=== PATIENT | male | born 1935 | race Caucasian/White ===

== ENCOUNTER 2018-03-08 05:44 | Inpatient (IN) | payer OTHER, MEDICARE ==
[2018-03-08] MEDS ORDERED: NA CHLORIDE 0.9% 500 ML ONE ×2 (06:30→11:54)
[2018-03-08] MEDS ORDERED: MORPHINE 4 MG/ML SYR ONE ×2 (06:30→10:43)
[2018-03-08] MEDS ORDERED: ONDANSETRON 4 MG/2 ML VIAL ONE (06:30)
[2018-03-08 07:20] LABS: Absolute Lymphocytes (CBC) 1.4 K/uL (0.7-4.9); Absolute Monocytes 0.9 K/uL (0.1-1.3); Absolute Neutrophil 8.1 K/uL (1.8-8.0); Basophils % 0.3 % (0-1.3); Eosinophils % 0.7 % (0-4.4); Hematocrit 40.8 % (39.6-49.0); Lymphocytes % 13.3 % (15.3-44.8); MCH 30.7 pg (27.0-35.0); MCV 94.2 fL (80-100); MPV 10.5 fL (7.6-11.3); Monocytes % 8.8 % (3.3-12.3); RBC Red Blood Cell Count 4.33 M/uL (4.33-5.43)
[2018-03-08] MEDS ORDERED: LIDOCAINE VISCOUS 2% SOLN 15 ML UDC ONE (07:24)
[2018-03-08 07:30] LABS: Albumin 3.7 g/dL (3.4-5.0); Bilirubin Direct 0.1 mg/dL (0-0.2); Bilirubin Total 0.6 mg/dL (0.2-1.0); Potassium 4.8 mmol/L (3.5-5.1); Protein, Total 7.7 g/dL (6.4-8.2)
--- NOTE | 2018-03-08 09:17 | RAD REPORT ---
EXAM DESCRIPTION: CT - Abdomen Pelvis Wo Contrast - 03/08/2018 8:56 am CLINICAL HISTORY: Abdominal pain, constipation COMPARISON: None. TECHNIQUE: Axial [address] imaging of the abdomen and pelvis was performed without IV contrast. No IV contrast was given because of allergy, abnormal renal function, patient refusal or physician re quest. Oral contrast was given. All CT scans are performed using dose optimization technique as appropriate and may include automated exposure control or mA/KV adjustment according to patient size. FINDINGS: No acute infiltrate in the lung bases. No pneumothorax or pleural effusion. There is a sma ll 8 mm nodular focus that appears to be pleural based on the coronal reconstruction. This is probabl y pleural or subpleural scarring. Long-term significance is doubtful. No prior imaging is available. A 6-12 month follow-up examination of the chest could be performed to monitor for stability. The liver, spleen and pancreas show no suspicious findings on non-contrast imaging. Gallbladder and b iliary tree are also without suspicious finding. No hydronephrosis of either kidney. Extrarenal pelves are present. No obstructing or nonobstructing c alculi. Patient has a nonspecific mild to moderate perinephric stranding pattern not uncommon in mark ents this age. Patient has multiple bilateral low-attenuation masses. These are all believed to be cy sts. No one mass shows more suspicious characteristics. No significant adrenal finding. Isodense isiah al masses and pyelonephritis cannot be excluded in the absence of IV contrast. Urinary bladder is ful ly contracted around a Pollack catheter limiting assessment. No bladder calculi seen. No gastric dilatation or gastric wall thickening. No acute small bowel finding. Patient has prominent sigmoid diverticulosis without diverticulitis. There is large stool volume filling but not dilating the cecum and ascending colon. Colon is otherwise clear of any stool volume. No active colon process seen. No free air, free fluid or inflammatory stranding. No mass or bulky lymphadenopathy. Patient gao s a small fat only umbilical hernia. Small right-side and moderate left-side fat filled inguinal junaid ia is present. Prostate gland and seminal vesicles normal range. Disc and bony degenerative changes are present. No acute or pathologic bone process seen. IMPRESSION: No obstruction, free air or surgically emergent finding. Patient has a large stool volume filling the right-side of the colon. Transverse colon to rectum are clear of any measurable stool volume. There is sigmoid diverticulosis without diverticulitis. No hydronephrosis or obstructing calculus. Numerous bilateral renal cysts are present with a nonspeci fic perinephric stranding pattern. Isodense masses and pyelonephritis are not excluded. Small nodular focus at the right lung base warranting CT re-evaluation in 6-12 months. Full assessment is limited is the absence of IV contrast.
--- NOTE | 2018-03-08 10:02 | EDPHYS ---
Physician Documentation [facility] Name: Jax Bojorquez Age: 82 yrs Sex: Male : 1935 Arrival Date: 03/08/2018 Time: 05:44 Bed 19 Private MD: ED Physician Del Douglas HPI: 03/08 07:00 This 82 yrs old Male presents to ER via Ambulatory with complaints of pm1 Abdominal Pain. 07:00 The patient presents with abdominal pain that is diffuse. Onset: The symptoms/episode pm1 began/occurred 4 day(s) ago. The symptoms do not radiate. Associated signs and symptoms: Pertinent positives: constipation, urinary retention and dribbling, Pertinent negatives: chest pain, fever, shortness of breath. The symptoms are described as crampy, Feels like he needs to have a bowel movement. Modifying factors: The symptoms are alleviated by nothing, the symptoms are aggravated by nothing. Severity of pain: in the emergency department the pain is actually worse. The patient has not experienced similar symptoms in the past. Patient with urinary difficulty and constipation for 4 days. Urinating a little amount multiple times throughout the day. No burning with urination. He feels diffuse abdominal pain with urge to defecate. No nausea or vomiting. No fevers. Called his manager configuration on Friday afternoon at 1600 prior to office closing and was called in a prescription of Cipro for possible UTI. Patient was advised to report to ER on that day but refused. Historical: - Allergies: 06:02 No Known Allergies; jd3 - Home Meds: 08:55 allopurinol 300 mg Oral tab 1 tab once daily [Active]; valsartan 40 mg oral tab once em daily [Active]; pravastatin 40 mg oral tab 1 tab once daily [Active]; Cipro 500 mg Oral tab 1 tab every 12 hours [Active]; - PMHx: 06:02 Hypertension; High Cholesterol; jd3 - PSHx: 06:02 None; jd3 - Immunization history:: Adult Immunizations up to date. - Social history:: Smoking status: Patient/guardian denies using tobacco. - Ebola Screening: : Patient negative for fever greater than or equal to 101.5 degrees Fahrenheit, and additional compatible Ebola Virus Disease symptoms. ROS: 07:00 Constitutional: Negative for fever, chills, and weight loss, Eyes: Negative for injury, pm1 pain, redness, and discharge, ENT: Negative for injury, pain, and discharge, Neck: Negative for injury, pain, and swelling, Cardiovascular: Negative for chest pain, palpitations, and edema, Respiratory: Negative for shortness of breath, cough, wheezing, and pleuritic chest pain. 07:00 Back: Negative for injury and pain. 07:00 MS/Extremity: Negative for injury and deformity, Skin: Negative for injury, rash, and discoloration, Neuro: Negative for headache, weakness, numbness, tingling, and seizure. 07:00 Abdomen/GI: Positive for abdominal pain, constipation, Negative for nausea, vomiting, diarrhea. 07:00 : Positive for urinary frequency, small amounts, difficulty urinating, Negative for flank pain, burning with urination. Exam: 07:00 Constitutional: This is a well developed, well nourished patient who is awake, alert, pm1 and in no acute distress. Head/Face: Normocephalic, atraumatic. Neck: Trachea midline, no thyromegaly or masses palpated, and no cervical lymphadenopathy. Supple, full range of motion without nuchal rigidity, or vertebral point tenderness. No Meningismus. Chest/axilla: Normal chest wall appearance and motion. Nontender with no deformity. No lesions are appreciated. Cardiovascular: Regular rate and rhythm with a normal S1 and S2. No gallops, murmurs, or rubs. Normal PMI, no JVD. No pulse deficits. Respiratory: Lungs have equal breath sounds bilaterally, clear to auscultation and percussion. No rales, rhonchi or wheezes noted. No increased work of breathing, no retractions or nasal flaring. 07:00 Back: No spinal tenderness. No costovertebral tenderness. Full range of motion. Skin: Warm, dry with normal turgor. Normal color with no rashes, no lesions, and no evidence of cellulitis. MS/ Extremity: Pulses equal, no cyanosis. Neurovascular intact. Full, normal range of motion. 07:00 Abdomen/GI: Inspection: obese Bowel sounds: normal, Palpation: soft, mild abdominal tenderness, in the suprapubic area, mass, is not appreciated, rebound tenderness, is not appreciated. 07:00 Neuro: Orientation: is normal, Motor: moves all fours, Gait: is steady, at a normal pace, without difficulty. Vital Signs: 05:50 BP 158 / 88; Pulse 81; Resp 18; Temp 97.8(TE); Pulse Ox 97% on R/A; Weight 84.37 kg ea (R); Height 5 ft. 9 in. (175.26 cm) (R); Pain 10/10; 07:10 BP 147 / 87; Pulse 67; Resp 18; Pulse Ox 99% on R/A; Pain 5/10; em 08:11 BP 164 / 91; Pulse 70; Resp 18; Pulse Ox 99% on R/A; em 09:00 BP 159 / 88; Pulse 65; Resp 18; Pulse Ox 99% on R/A; em 10:01 BP 157 / 78; Pulse 79; Resp 18; Pulse Ox 96% on R/A; em 11:27 BP 150 / 84; Pulse 66; Resp 16; Pulse Ox 97% on R/A; em 12:45 BP 165 / 86; Pulse 70; Resp 20; Temp 97.8(O); Pulse Ox 98% on R/A; em 13:50 BP 160 / 79; Pulse 67; Resp 16; Pulse Ox 97% on R/A; em 15:00 BP 140 / 73; Pulse 59; Resp 14; Pulse Ox 99% on R/A; Pain 0/10; em 16:10 BP 159 / 61; Pulse 67; Resp 18; Temp 98.1; Pulse Ox 97% on R/A; Pain 0/10; em 05:50 Body Mass Index 27.47 (84.37 kg, 175.26 cm) ea MDM: 06:01 Patient medically screened. pm1 10:05 Physician consultation: Jayla Giron MD was contacted at 10:00, regarding consult, pm1 patient's condition, and will see patient tomorrow, IV fluids and lezama catheter. 10:20 Physician consultation: Natali Fofana MD was contacted at 10:20, regarding pm1 admission, patient's condition, would like consultation with Urology. 10:39 Physician consultation: Kym Buenrostro MD was contacted at 10:39, regarding consult, pm1 Out of town for 1 week. 11:15 Physician consultation: Natali Fofana MD was contacted at 11:15, regarding Told him pm1 that urology is unavailable. Dr. Buenrostro is out of town for [address] Fofana requests transfer of the patient due to lack of speciality. 12:35 Data reviewed: vital signs. Data interpreted: Pulse oximetry: on room air is 99 %. pm1 Interpretation: normal. 13:30 Physician consultation: Rickie Cavanaugh MD regarding regarding transfer, to [address] patient's condition, Recommends consultation with hospitalist here to discuss admission at [facility]. No acute reason for transfer to [facility] since patient has Lezama placement. Not denying transfer but recommends discussion with hospitalist if transfer is necessary. 14:10 Physician consultation: Stephanie Nicholas MD She discussed the case with Dr. Cavanaugh and pm1 they would like repeat BMP prior to determination of transfer or admission. 15:40 Physician consultation: Stephanie Nicholas MD Consulted with Dr. Giron and will keep the pm1 patient here for admission. If patient requires urology will transfer the patient to [facility]. 03/08 06:09 Order name: Amylase, Serum pm1 03/08 06:09 Order name: Basic Metabolic Panel 1 03/08 06:09 Order name: CBC with Diff pm1 03/08 06:09 Order name: Creatinine for Radiology pm1 03/08 06:09 Order name: Hepatic Function 1 03/08 06:09 Order name: Lipase pm1 03/08 06:09 Order name: Urine Microscopic Only; Complete Time: 12:22 pm1 03/08 06:43 Order name: Basic Metabolic Panel; Complete Time: 07:32 EDMS 03/08 06:43 Order name: Liver (Hepatic) Function; Complete Time: 07:32 EDMS 03/08 06:43 Order name: Amylase Level; Complete Time: 07:32 EDMS 03/08 06:43 Order name: Lipase; Complete Time: 07:32 EDMS 03/08 06:44 Order name: Creatinine (Radiology Only); Complete Time: 07:07 EDMS 03/08 06:44 Order name: CBC with Automated Diff; Complete Time: 08:05 EDMS 03/08 07:21 Order name: Urine Dipstick--Ancillary (enter results) 03/08 06:09 Order name: IV Saline Lock; Complete Time: 06:36 pm1 03/08 06:09 Order name: Labs collected and sent; Complete Time: 06:36 pm1 03/08 07:09 Order name: Abdomen ; Complete Time: 09:25 EDMS 03/08 07:21 Order name: Urine Dipstick-Ancillary; Complete Time: 15:46 EDMS 03/08 10:41 Order name: CONS Physician Consult EDMS 03/08 14:12 Order name: BMP pm1 03/08 06:09 Order name: Urine Dipstick-Ancillary (obtain specimen); Complete Time: 08:12 pm1 03/08 06:09 Order name: Bladder Scanner; Complete Time: 08:12 pm1 03/08 06:39 Order name: Lezama; Complete Time: 08:12 pm1 Administered Medications: 06:36 Drug: NS 0.9% 500 ml Route: IV; Rate: bolus; Site: left antecubital; jd3 06:59 Follow up: Response: No adverse reaction; IV Status: Completed infusion; IV Intake: jd3 500ml 06:36 Drug: Zofran 4 mg Route: IVP; Site: left antecubital; jd3 06:59 Follow up: Response: No adverse reaction jd3 06:36 Drug: morphine 2 mg Route: IVP; Site: left antecubital; jd3 06:59 Follow up: Response: No adverse reaction jd3 10:48 Drug: morphine 2 mg Route: IVP; Site: left antecubital; em 12:09 Follow up: Response: No adverse reaction; Pain is decreased em 11:59 Drug: NS 0.9% 500 ml Route: IV; Rate: bolus; Site: left antecubital; em 16:24 Follow up: IV Status: Completed infusion; IV Intake: 500ml em 11:59 Drug: NS 0.9% 1000 ml Route: IV; Rate: 100 ml/hr; Site: left antecubital; em 16:32 Follow up: IV Status: Infusion continued upon admission; IV Intake: 300ml em 12:28 Drug: morphine 2 mg Route: IVP; Site: left antecubital; em 12:56 Follow up: Response: No adverse reaction em 12:57 Drug: Dulcolax Suppository 10 mg Route: OH; em 16:25 Follow up: Response: No adverse reaction; Pain is decreased em 16:24 Drug: Fleet Bisacodyl Enema (10 mg/30mL) 10 mg Route: OH; em 16:25 Follow up: Response: Medication administered at discharge. em Disposition: 03/09 13:28 Co-signature as Attending Physician, Del Douglas MD Available for consultation at ps1 all times. . Disposition: 03/08/18 14:30 Hospitalization ordered by Stephanie Nicholas for Inpatient Admission. Preliminary diagnosis are Acute kidney injury, Constipation, Retention of urine, Unspecified abdominal pain. - Bed requested for Telemetry/MedSurg (Inpatient). - Status is Inpatient Admission. em - Condition is Stable. - Problem is new. - Symptoms have improved. UTI on Admission? No Signatures: Dispatcher [employer] EDNC Justina Junior Edgar, HOTEL OR MOTEL CLEANING SUPERVISOR HOTEL OR MOTEL CLEANING SUPERVISOR em Ashu Arndt, DONNIE PROTECTIVE SIGNAL INSTALLER HELPER pm1 Armando Morton, RN RN Del Renteria MD MD ps1 Corrections: (The following items were deleted from the chart) 03/08 07:09 07:00 Abdomen Pelvis W Con+CT.RAD.BRZ ordered. [facility] EDMS 08:55 06:02 Home Meds: HTN medications; jd3 em 10:02 10:01 Hospitalization Ordered by Josiah Bolanos DO for Inpatient Admission. Preliminary pm1 diagnosis is Constipation. Bed requested for Telemetry/MedSurg (Inpatient). Status is Inpatient Admission. Condition is Stable. Problem is new. Symptoms have improved. UTI on Admission? No. pm1 10:02 10:02 03/08/2018 10:01 Hospitalization Ordered by Josiah Bolanos DO for Inpatient pm1 Admission. Preliminary diagnosis is Constipation; Retention of urine; Acute kidney failure. Bed requested for Telemetry/MedSurg (Inpatient). Status is Inpatient Admission. Condition is Stable. Problem is new. Symptoms have improved. UTI on Admission? No. pm1 10:33 10:02 03/08/2018 10:01 Hospitalization Ordered by Josiah Bolanos DO for Inpatient pm1 Admission. Preliminary diagnosis is Acute kidney failureConstipation; Retention of urine. Bed requested for Telemetry/MedSurg (Inpatient). Status is Inpatient Admission. Condition is Stable. Problem is new. Symptoms have improved. UTI on Admission? No. pm1 11:23 10:33 03/08/2018 10:01 Hospitalization Ordered by Natali Fofana MD for Inpatient pm1 Admission. Preliminary diagnosis is Acute kidney failureConstipation; Retention of urine. Bed requested for Telemetry/MedSurg (Inpatient). Status is Inpatient Admission. Condition is Stable. Problem is new. Symptoms have improved. UTI on Admission? No. pm1 11:25 11:24 03/08/2018 11:24 Transfer ordered to [facility]. Diagnosis is pm1 Acute kidney failure; Constipation; Retention of urine. Reason for transfer: Specialty. Accepting physician is [facility]. Condition is Stable. Problem is new. Symptoms have improved. pm1 14:29 11:25 03/08/2018 11:24 Transfer ordered to [facility]. Diagnosis is pm1 Acute kidney failure; Constipation; Retention of urine; Unspecified abdominal pain. Reason for transfer: Specialty. Accepting physician is [facility]. Condition is Stable. Problem is new. Symptoms have improved. pm1 15:33 14:30 Hospitalization Ordered by Stephanie Nicholas MD for Inpatient Admission. Preliminary bd diagnosis is Acute kidney injury; Constipation; Retention of urine; Unspecified abdominal pain. Bed requested for Telemetry/MedSurg (Inpatient). Status is Inpatient Admission. Condition is Stable. Problem is new. Symptoms have improved. UTI on Admission? No. pm1 16:42 15:33 03/08/2018 14:30 Hospitalization Ordered by Stephanie Nicholas MD for Inpatient em Admission. Preliminary diagnosis is Acute kidney injury; Constipation; Retention of urine; Unspecified abdominal pain. Bed requested for Telemetry/MedSurg (Inpatient). Status is Inpatient Admission. Condition is Stable. Problem is new. Symptoms have improved. UTI on Admission? No. bd
--- NOTE | 2018-03-08 10:02 | ER ---
Nurse's Notes [facility] Name: Jax Bojorquez Age: 82 yrs Sex: Male : 1935 Arrival Date: 03/08/2018 Time: 05:44 Bed 19 Private MD: Diagnosis: Acute kidney injury;Constipation;Retention of urine;Unspecified abdominal pain Presentation: 03/08 05:58 Transition of care: patient was not received from another setting of care. Risk ea Assessment: Do you want to hurt yourself or someone else? Patient reports no desire to harm self or others. Initial Sepsis Screen: Does the patient meet any 2 criteria? No. Patient's initial sepsis screen is negative. Does the patient have a suspected source of infection? Yes: Dysuria/Frequency/Urgency/UTI. 05:58 Method Of Arrival: Ambulatory ea 05:58 Presenting complaint: Patient states: "I am having lower abdominal pain. I feel like I jd3 am plugged up. If I could just use the restroom, I feel like I would fell better.". Transition of care: patient was not received from another setting of care. Onset of symptoms was March 03, 2018. Risk Assessment: Do you want to hurt yourself or someone else? Patient reports no desire to harm self or others. Initial Sepsis Screen: Does the patient meet any 2 criteria? No. Patient's initial sepsis screen is negative. Does the patient have a suspected source of infection? No. Patient's initial sepsis screen is negative. Care prior to arrival: None. 05:58 Method Of Arrival: Ambulatory jd3 05:58 Acuity: JASMEET 3 jd3 Historical: - Allergies: 06:02 No Known Allergies; jd3 - Home Meds: 08:55 allopurinol 300 mg Oral tab 1 tab once daily [Active]; valsartan 40 mg oral tab once em daily [Active]; pravastatin 40 mg oral tab 1 tab once daily [Active]; Cipro 500 mg Oral tab 1 tab every 12 hours [Active]; - PMHx: 06:02 Hypertension; High Cholesterol; jd3 - PSHx: 06:02 None; jd3 - Immunization history:: Adult Immunizations up to date. - Social history:: Smoking status: Patient/guardian denies using tobacco. - Ebola Screening: : Patient negative for fever greater than or equal to 101.5 degrees Fahrenheit, and additional compatible Ebola Virus Disease symptoms. Screenin:57 Abuse screen: Denies threats or abuse. Nutritional screening: No deficits noted. ea Tuberculosis screening: No symptoms or risk factors identified. Fall Risk None identified. Assessment: 06:02 General: Appears in no apparent distress. uncomfortable, Behavior is calm, cooperative, jd3 appropriate for age. Pain: Complains of pain in right lower quadrant and left lower quadrant Pain radiates to low back area Pain currently is 10 out of 10 on a pain scale. Quality of pain is described as aching, Is continuous. Neuro: Level of Consciousness is awake, alert, obeys commands, Oriented to person, place, time, situation, Appropriate for age. Cardiovascular: Heart tones S1 S2 present Capillary refill < 3 seconds Patient's skin is warm and dry. Respiratory: Airway is patent Respiratory effort is even, unlabored, Respiratory pattern is regular, symmetrical, Breath sounds are clear bilaterally. GI: Abdomen is round Bowel sounds present X 4 quads. Abd is soft and non tender X 4 quads. Reports constipation, Last bowl movement 3 days ago Patient currently denies nausea, vomiting. : Reports urinary retention. EENT: No signs and/or symptoms were reported regarding the EENT system. Derm: Skin is intact, Skin is dry, Skin is normal, Skin temperature is warm. Musculoskeletal: Circulation, motion, and sensation intact. Range of motion: intact in all extremities. 07:10 General: Appears in no apparent distress. comfortable, Behavior is calm, cooperative. em Pain: Complains of pain in left lower quadrant and right lower quadrant Pain radiates to back Pain currently is 5 out of 10 on a pain scale. Neuro: Level of Consciousness is awake, alert, Oriented to person, place, time, situation. Cardiovascular: Capillary refill < 3 seconds Patient's skin is warm and dry. Respiratory: Airway is patent Respiratory effort is even, unlabored, Respiratory pattern is regular, symmetrical. GI: Abdomen is round non-distended, Bowel sounds present X 4 quads. Abd is soft X 4 quads Abdomen is tender to palpation in right lower quadrant and left lower quadrant Reports constipation, Patient currently denies nausea, vomiting. : Reports burning with urination, minimal voiding. EENT: No signs and/or symptoms were reported regarding the EENT system. Derm: Skin is intact, Skin is pink, warm \\T\\ dry. Musculoskeletal: Range of motion: intact in all extremities. 07:20 Reassessment: Patient appears in no apparent distress at this time. I agree with above iw assessment by Kiel Taylor LVN. 08:11 Reassessment: Patient appears in no apparent distress at this time. Patient and/or em family updated on plan of care and expected duration. Pain level reassessed. Patient is alert, oriented x 3, equal unlabored respirations, skin warm/dry/pink. feeling better after Pollack Patient states feeling better. 08:48 Reassessment: pt wheeled to CT via stretcher, reports feeling better, denies pain. em 09:50 Reassessment: Patient appears in no apparent distress at this time. Patient and/or em family updated on plan of care and expected duration. Pain level reassessed. Patient is alert, oriented x 3, equal unlabored respirations, skin warm/dry/pink. family at bedside. 10:30 Reassessment: attempted to have a BM, unsuccessful, DONNIE Wakefield notified, pt request em pain medication, rates pain 06/24. 11:30 Reassessment: Patient appears in no apparent distress at this time. Patient and/or em family updated on plan of care and expected duration. Pain level reassessed. Patient is alert, oriented x 3, equal unlabored respirations, skin warm/dry/pink. request a laxative, DONNIE Wakefield notified. 12:30 Reassessment: Patient appears in no apparent distress at this time. Patient and/or em family updated on plan of care and expected duration. Pain level reassessed. Patient is alert, oriented x 3, equal unlabored respirations, skin warm/dry/pink. 13:27 Reassessment: Patient appears in no apparent distress at this time. resting comfortably em with eyes closed, respiration even, unlabored, skin pink warm and dry, family will return later. 14:30 Reassessment: Patient appears in no apparent distress at this time. Patient and/or em family updated on plan of care and expected duration. Pain level reassessed. Patient is alert, oriented x 3, equal unlabored respirations, skin warm/dry/pink. 15:32 Reassessment: Patient appears in no apparent distress at this time. Patient and/or em family updated on plan of care and expected duration. Pain level reassessed. Patient is alert, oriented x 3, equal unlabored respirations, skin warm/dry/pink. Patient denies pain at this time. 16:30 Reassessment: Patient appears in no apparent distress at this time. Patient and/or em family updated on plan of care and expected duration. Pain level reassessed. Patient is alert, oriented x 3, equal unlabored respirations, skin warm/dry/pink. Vital Signs: 05:50 BP 158 / 88; Pulse 81; Resp 18; Temp 97.8(TE); Pulse Ox 97% on R/A; Weight 84.37 kg ea (R); Height 5 ft. 9 in. (175.26 cm) (R); Pain 10/10; 07:10 BP 147 / 87; Pulse 67; Resp 18; Pulse Ox 99% on R/A; Pain 5/10; em 08:11 BP 164 / 91; Pulse 70; Resp 18; Pulse Ox 99% on R/A; em 09:00 BP 159 / 88; Pulse 65; Resp 18; Pulse Ox 99% on R/A; em 10:01 BP 157 / 78; Pulse 79; Resp 18; Pulse Ox 96% on R/A; em 11:27 BP 150 / 84; Pulse 66; Resp 16; Pulse Ox 97% on R/A; em 12:45 BP 165 / 86; Pulse 70; Resp 20; Temp 97.8(O); Pulse Ox 98% on R/A; em 13:50 BP 160 / 79; Pulse 67; Resp 16; Pulse Ox 97% on R/A; em 15:00 BP 140 / 73; Pulse 59; Resp 14; Pulse Ox 99% on R/A; Pain 0/10; em 16:10 BP 159 / 61; Pulse 67; Resp 18; Temp 98.1; Pulse Ox 97% on R/A; Pain 0/10; em 05:50 Body Mass Index 27.47 (84.37 kg, 175.26 cm) ED Course: 05:44 Patient arrived in ED. ds1 05:48 Armando Morton RN is Primary Nurse. jd3 05:57 Patient has correct armband on for positive identification. Bed in low position. Call ea light in reach. Side rails up X 1. 05:57 Arm band placed on right wrist. Patient placed in an exam room, on a stretcher, on ea pulse oximetry. 06:00 Ashu Arndt NP is PHCP. pm1 06:00 Del Douglas MD is Attending Physician. pm1 06:01 Triage completed. jd3 06:20 Inserted saline lock: 22 gauge in right antecubital area, using aseptic technique. ea Blood collected. 07:05 Report given to Regine LOPEZ. jd3 07:40 Bladder scan completed. 327 mL. em 08:09 Pollack cath inserted, using sterile technique, 18 Fr., by me, balloon inflated, to em gravity drainage, returned clear yellow urine. Patient tolerated well. emptied Pollack, initial drainage 620 mL. 08:56 Abdomen In Process Unspecified. EDMS 08:[address] via stretcher. Patient moved back from CT. cw1 10:00 Josiah Bolanos DO is Hospitalizing Provider. pm1 10:33 Natali Fofana MD is Hospitalizing Provider. pm1 14:29 Stephanie Nicholas MD is Hospitalizing Provider. pm1 16:33 No provider procedures requiring assistance completed. Patient admitted, IV remains in em place. Administered Medications: 06:36 Drug: NS 0.9% 500 ml Route: IV; Rate: bolus; Site: left antecubital; jd3 06:59 Follow up: Response: No adverse reaction; IV Status: Completed infusion; IV Intake: jd3 500ml 06:36 Drug: Zofran 4 mg Route: IVP; Site: left antecubital; jd3 06:59 Follow up: Response: No adverse reaction jd3 06:36 Drug: morphine 2 mg Route: IVP; Site: left antecubital; jd3 06:59 Follow up: Response: No adverse reaction jd3 10:48 Drug: morphine 2 mg Route: IVP; Site: left antecubital; em 12:09 Follow up: Response: No adverse reaction; Pain is decreased em 11:59 Drug: NS 0.9% 500 ml Route: IV; Rate: bolus; Site: left antecubital; em 16:24 Follow up: IV Status: Completed infusion; IV Intake: 500ml em 11:59 Drug: NS 0.9% 1000 ml Route: IV; Rate: 100 ml/hr; Site: left antecubital; em 16:32 Follow up: IV Status: Infusion continued upon admission; IV Intake: 300ml em 12:28 Drug: morphine 2 mg Route: IVP; Site: left antecubital; em 12:56 Follow up: Response: No adverse reaction em 12:57 Drug: Dulcolax Suppository 10 mg Route: FL; em 16:25 Follow up: Response: No adverse reaction; Pain is decreased em 16:24 Drug: Fleet Bisacodyl Enema (10 mg/30mL) 10 mg Route: FL; em 16:25 Follow up: Response: Medication administered at discharge. em Intake: 06:59 IV: 500ml; Total: 500ml. jd3 16:24 IV: 500ml; Total: 1000ml. em 16:32 IV: 300ml; Total: 1300ml. em Outcome: 10:01 Decision to Hospitalize by Provider. pm1 11:24 ER care complete, transfer ordered by MD. pm1 14:30 Decision to Hospitalize by Provider. pm1 16:37 Admitted to Med/surg accompanied by tech, via wheelchair, room 422, with chart, Report em called to MARION Walton 16:37 Condition: good 16:37 Instructed on the need for admit, Demonstrated understanding of instructions. 16:42 Patient left the ED. em Signatures: Dispatcher [employer] EDMS Kiel Taylor, JESSICA [employer]GR[employer] FABRICATOR Tammi Sosa ds1 Lashay Trammell, Klaudia Hatch RN cw1 Ashu Arndt, GLASS VIAL FILLER GLASS VIAL FILLER pm1 Jasmyn North RN RN ea Davies, Jonathon, RN RN jd3 Corrections: (The following items were deleted from the chart) 06:01 05:50 BP 158 / 88; Pulse 81bpm; Resp 18bpm; Pulse Ox 97% RA; Temp 97.8F Temporal; Pain ea 10/10; ea 08:55 06:02 Home Meds: HTN medications; jd3 em 12:17 11:30 Reassessment: Patient appears in no apparent distress at this time. Patient em and/or family updated on plan of care and expected duration. Pain level reassessed. Patient is alert, oriented x 3, equal unlabored respirations, skin warm/dry/pink. em 19:35 16:45 Reassessment: Patient appears in no apparent distress at this time. Patient em and/or family updated on plan of care and expected duration. Pain level reassessed. Patient is alert, oriented x 3, equal unlabored respirations, skin warm/dry/pink. em
[2018-03-08] MEDS ORDERED: NA CHLORIDE 0.9% 1,000 ML ONE (11:54)
[2018-03-08 12:17] LABS: Urine Bacteria <20 /HPF (NONE SEEN); Urine Culture Reflex Order NOT NEEDED; Urine RBC <5 /HPF (NONE SEEN)
[2018-03-08] MEDS ORDERED: BISACODYL 10 MG RECTAL SUPP ONE (12:21)
[2018-03-08 14:20] LABS: Urine Blood TRACE (NEG); Urine Glucose NEGATIVE (NEG); Urine Protein NEGATIVE (NEG)
--- NOTE | 2018-03-08 16:06 | P.HP ---
Certification for Inpatient Patient admitted to: Inpatient With expected LOS: >2 Midnights Patient will require the following post-hospital care: None Practitioner: I am a practitioner with admitting privileges, knowledge of patient current condition, hospital course, and medical plan of care. Services: Services provided to patient in accordance with Admission requirements found in Title 42 Section 412.3 of the Code of Federal Regulations Patient History Date of Service: 03/08/18 Primary Care Provider: Dr Burch Reason for admission: AMY History of Present Illness: 82 y/o M with Significant pmhx of Gout and HTN who presented to the ER with Complains of urinary Retention that is going on for about 1 to 2 weeks, however it got worse since this past friday. Pt states he noted that he has been dribbling a lot and not able to empty out his bladder. He called his PCP on friday who asked him to get some lab work done. pt at that point had Elevated BUN and CR. He made an appt to see her in the clinic next week. However his symptoms are getting worse he decided to come in. No fever, chills noted. No Nausea or vomiting. pt is only complaining of Abd pain. No other complains to offer at this time. Allergies No Known Allergies Allergy (Unverified 03/08/18 15:27) Home medications list reviewed: Yes - Past Medical/Surgical History Has patient received pneumonia vaccine in the past: No Diabetic: No -: Gout -: HTN -: None - Family History Family History: Reviewed- Non-Contributory - Social History Smoking Status: Never smoker Alcohol use: No Review of Systems General: As per HPI Physical Examination - Physical Exam General: Alert, In no apparent distress HEENT: Atraumatic, PERRLA, Mucous membr. moist/pink, EOMI, Sclerae nonicteric Neck: Supple, 2+ carotid pulse no bruit, No LAD, Without JVD or thyroid abnormality Respiratory: Clear to auscultation bilaterally, Normal air movement Cardiovascular: Regular rate/rhythm, Normal S1 S2 Gastrointestinal: Normal bowel sounds, Distended, Tenderness (Generalized Tenderness) Musculoskeletal: No tenderness Integumentary: No rashes Neurological: Normal gait, Normal speech, Normal strength at 5/5 x4 extr, Normal tone, Normal affect Lymphatics: No axilla or inguinal lymphadenopathy - Studies Laboratory Data (last 24 hrs) 03/08/18 06:33: Creatinine 5.90 H* 03/08/18 06:33: WBC 10.5, Hgb 13.3 L, Hct 40.8, Plt Count 194 03/08/18 06:33: Sodium 135 L, Potassium 4.8, BUN 70 H D, Creatinine 5.80 H* D, Glucose 199 H, Total Bilirubin 0.6, AST 22, ALT 25, Alkaline Phosphatase 73, Amylase 102, Lipase 192 03/08/18 06:09: Creatinine Cancelled 03/08/18 06:09: WBC Cancelled, Hgb Cancelled, Hct Cancelled, Plt Count Cancelled 03/08/18 06:09: Sodium Cancelled, Potassium Cancelled, BUN Cancelled, Creatinine Cancelled, Glucose Cancelled, Total Bilirubin Cancelled, AST Cancelled, ALT Cancelled, Alkaline Phosphatase Cancelled, Amylase Cancelled, Lipase Cancelled Assessment and Plan - Problems (Diagnosis) (1) Obstructive uropathy Current Visit: Yes Status: Acute Plan: Acute Obstructive Uropathy with AMY. Unknown etiology at this time. -Lezama Placed 700ml of UO -Urology is not available at the hospital at this time. However contacted Urologist in [facility] Who reccs lezama placement and observe for improvement in kidney Function. -IV fluids for now (2) AMY (acute kidney injury) Current Visit: Yes Status: Acute Plan: BUN/CR is elevated to 70/5.60 today. Worse from Two day ago. Most likely obstructive Uropathy -Iv fluids -Nephrology consulted. Reccs Appreciated. -avoid Nephrotoxic agents (3) HTN (hypertension) Current Visit: Yes Status: Chronic Plan: Restart Home medication Qualifiers: Hypertension type: essential hypertension Qualified Code(s): I10 - Essential (primary) hypertension (4) Gout Current Visit: Yes Status: Chronic Qualifiers: Gout site: unspecified site Gout etiology: unspecified cause Chronicity: chronic Presence of tophus: without tophus Qualified Code(s): M1A.9XX0 - Chronic gout, unspecified, without tophus (tophi) Discharge Plan: Home Plan to discharge in: 24 Hours - Advance Directives Does patient have a Living Will: No Does patient have a Durable POA for Healthcare: No - Code Status/Comfort Care Code Status Assessed: Yes Critical Care: No
[2018-03-08] MEDS ORDERED: FLEET ENEMA ADULT PR ONE (16:11)
[2018-03-08] MEDS: NA CHLORIDE 0.9% 1,000 ML IV SCH ×2 (16:39→22:45)
[2018-03-08] MEDS ORDERED: ONDANSETRON 4 MG/2 ML VIAL IV PRN (16:39)
[2018-03-08] MEDS ORDERED: ACETAMINOPHEN 500 MG TAB PO PRN (16:39)
[2018-03-08 17:25] LABS: Potassium 4.5 mmol/L (3.5-5.1)
[2018-03-08 17:45] VITALS: BMI 27.4
[2018-03-08 17:51] LABS: Magnesium 2.3 mg/dL (1.8-2.4); Phosphorus 4.8 mg/dL (2.5-4.9)
--- NOTE | 2018-03-08 19:36 | RAD REPORT ---
EXAM DESCRIPTION: US - Renal Ultrasound-Complete - 03/08/2018 7:09 pm CLINICAL HISTORY: Acute kidney infection COMPARISON: CT study March 08 FINDINGS: The right kidney measures 11.2 x 4.7 x 5.8 cm. The left kidney measures 11.4 x 5.6 x 6.7 cm. Cortical thickness is normal. Echogenicity is increased most likely from underlying medical renal disease. No hydronephrosis or suspicious renal mass. Bilateral renal cysts are present largest 3.5 c m on the right and 2.1 cm on the left. No suspicious characteristics. Urinary bladder is fully contracted precluding any accurate assessment. IMPRESSION: No hydronephrosis or suspicious renal mass. Bilateral renal cysts are present. Increased renal cortical echogenicity from underlying medical renal disease. Urinary bladder is fully contracted precluding assessment.
[2018-03-08] MEDS: ATORVASTATIN 10 MG TAB PO SCH (20:19)
[2018-03-08] MEDS: BIMATOPROST OPHTH DROPS/2.5 ML BTL OPTH SCH (20:19)
[2018-03-09] MEDS: NA CHLORIDE 0.9% 1,000 ML IV SCH ×4 (02:39→18:45)
[2018-03-09 04:31] LABS: MCV 93.6 fL (80-100); RBC Red Blood Cell Count 3.85 M/uL (4.33-5.43)
[2018-03-09 04:36] LABS: Absolute Lymphocytes (CBC) 1.4 K/uL (0.7-4.9); Absolute Neutrophil 5.3 K/uL (1.8-8.0); Basophils % 0.3 % (0-1.3); Eosinophils % 3.8 % (0-4.4); Lymphocytes % 17.3 % (15.3-44.8); MCH 31.5 pg (27.0-35.0); MPV 9.6 fL (7.6-11.3); Monocytes % 12.1 % (3.3-12.3)
[2018-03-09 05:10] LABS: Albumin 3.2 g/dL (3.4-5.0); Bilirubin Total 0.8 mg/dL (0.2-1.0); Magnesium 2.2 mg/dL (1.8-2.4); Phosphorus 3.5 mg/dL (2.5-4.9); Potassium 4.7 mmol/L (3.5-5.1); Protein, Total 6.6 g/dL (6.4-8.2)
[2018-03-09] MEDS: ALLOPURINOL 300 MG TAB PO SCH (08:56)
[2018-03-09] MEDS: MULTIVIT W/ MINERAL TAB PO SCH (08:56)
[2018-03-09] MEDS ORDERED: ASPIRIN EC 81 MG TAB PO SCH (09:00)
--- NOTE | 2018-03-09 15:10 | PN ---
Date of Progress Note: 03/09/2018 Subjective: The patient is seen and examined, chart reviewed, and case discussed with RN. The patie nt states, he was constipated for the past few days, however, is improved. No other complaints. Review of Systems: Negative except as above. Medications: Reviewed. Objective: Vital Signs: Temperature 98.1, heart rate 60, blood pressure 157/73, respirations 18, an d O2 99% on room air. General: Awake, alert, oriented x3, not in any acute distress. CV: S1, S2. No murmurs. Regular rate and rhythm. Peripheral pulses present. Respiratory: Clear to auscultation bilaterally. No wheezing. Gastrointestinal: Abdomen is soft, nontender, nondistended. Positive bowel sounds. Extremities: No clubbing, cyanosis, or edema. Neurologic: Nonfocal. Laboratory Data: Sodium 142, potassium 4.7, chloride 110, CO2 24, BUN 43, creatinine 2.5, glucose 92 , calcium 8.1, phosphorus 3.5, and magnesium 2.2. PSA is 29.6. WBC 8, H and H 12.1, 36, and platele ts 152. Renal ultrasound shows no hydronephrosis or suspicious renal mass. Bilateral renal cysts ar e present. Increased renal cortical echogenicity from underlying medical renal disease. Assessment And Plan: An 82-year-old male with; 1.Acute on chronic kidney injury. Creatinine significantly improved, likely from obstructive uropat hy. Nephrology on board. We will avoid NSAIDs and nephrotoxins. Continue IV fluids. 2.Obstructive uropathy, unclear etiology. PSA screen is elevated at 29. We will obtain Urology con sultation, was unavailable over the weekend. 3.Essential hypertension. Resume home medications. Stable. 4.Gout. We will hold medications for now. No tophi. 5.Right lung nodule. Recommend repeat CT in 6-12 months. 6.Incidental finding of sigmoid diverticulosis. No diverticulitis. 7.Gastrointestinal and deep venous thrombosis prophylaxis, addressed. /WALKER Voice ID: [id number] Report ID: [id number]
[2018-03-09] MEDS: ATORVASTATIN 10 MG TAB PO SCH (21:04)
[2018-03-09] MEDS: BIMATOPROST OPHTH DROPS/2.5 ML BTL OPTH SCH (21:04)
--- NOTE | 2018-03-09 22:04 | P.CNS ---
Date of Consult: 03/09/18 Reason for Consult: AMY Requesting Physician: Maggie Cintron Primary Care Provider: Dr Burch Chief Complaint: AMY History of Present Illness: 82 y/o M with Significant pmhx of Gout and HTN who presented to the ER with Complains of urinary Retention that is going on for about 1 to 2 weeks, however it got worse since this past friday. Pt states he noted that he has been dribbling a lot and not able to empty out his bladder. He called his PCP on friday who asked him to get some lab work done. pt at that point had Elevated BUN and CR. He made an appt to see her in the clinic next week. However his symptoms are getting worse he decided to come in. No fever, chills noted. No Nausea or vomiting. pt is only complaining of Abd pain. No other complains to offer at this time. 07:00 This 82 yrs old Male presents to ER via Ambulatory with complaints of pm1 Abdominal Pain. 07:00 The patient presents with abdominal pain that is diffuse. Onset: The symptoms/episode pm1 began/occurred 4 day(s) ago. The symptoms do not radiate. Associated signs and symptoms: Pertinent positives: constipation, urinary retention and dribbling, Pertinent negatives: chest pain, fever, shortness of breath. The symptoms are described as crampy, Feels like he needs to have a bowel movement. Modifying factors: The symptoms are alleviated by nothing, the symptoms are aggravated by nothing. Severity of pain: in the emergency department the pain is actually worse. The patient has not experienced similar symptoms in the past. Patient with urinary difficulty and constipation for 4 days. Urinating a little amount multiple times throughout the day. No burning with urination. He feels diffuse abdominal pain with urge to defecate. No nausea or vomiting. No fevers. Called his telephone solicitor supervisor on Friday afternoon at 1600 prior to office closing and was called in a prescription of Cipro for possible UTI. Patient was advised to report to ER on that day but refused. Allergies No Known Allergies Allergy (Unverified 03/08/18 15:27) Home medications list reviewed: Yes Home Medications: Acetaminophen [Tylenol Extra Strength] 500 mg PO Q4HP PRN 03/08/18 Allopurinol 300 mg PO DAILY 03/08/18 Aspirin [Aspirin EC 81 MG] 81 mg PO SEECOM 03/08/18 Bimatoprost [Lumigan Opthalmic Drops*] 1 drops EACH EYE BEDTIME 03/08/18 Ciprofloxacin HCl [Cipro 500 MG Tablet] 500 mg PO Q12H 03/08/18 Multivitamin [Multivitamins] 1 cap PO DAILY 03/08/18 Pravastatin Sodium 40 mg PO BEDTIME 03/08/18 Valsartan 40 mg PO DAILY 03/08/18 - Past Medical/Surgical History Diabetic: No -: Gout -: HTN -: None - Social History Alcohol use: Yes CD- Drugs: No Caffeine use: Yes Place of Residence: Home Review of Systems 10-point ROS is otherwise unremarkable Physical Examination Temp Pulse Resp BP Pulse Ox 97.9 F 57 18 158/69 H 95 03/09/18 20:00 03/09/18 20:00 03/09/18 20:00 03/09/18 20:00 03/09/18 20:00 General: In no apparent distress, Oriented x3, Cooperative HEENT: Atraumatic Neck: Supple, JVD not distended Respiratory: Clear to auscultation bilaterally, Normal air movement Cardiovascular: Regular rate/rhythm, No rubs Gastrointestinal: Soft and benign, Non-distended Musculoskeletal: No clubbing, No contractures Integumentary: No rashes, No cyanosis Neurological: Normal speech Blood work reviewed in the chart. Serum creatinine 5.8 to 2.8. Hgb 12.1 Imagings Data: EXAM DESCRIPTION: US - Renal Ultrasound-Complete - 03/08/2018 7:09 pm CLINICAL HISTORY: Acute kidney infection COMPARISON: CT study March 08 FINDINGS: The right kidney measures 11.2 x 4.7 x 5.8 cm. The left kidney measures 11.4 x 5.6 x 6.7 cm. Cortical thickness is normal. Echogenicity is increased most likely from underlying medical renal disease. No hydronephrosis or suspicious renal mass. Bilateral renal cysts are present largest 3.5 cm on the right and 2.1 cm on the left. No suspicious characteristics. Urinary bladder is fully contracted precluding any accurate assessment. IMPRESSION: No hydronephrosis or suspicious renal mass. Bilateral renal cysts are present. Increased renal cortical echogenicity from underlying medical renal disease. Urinary bladder is fully contracted precluding assessment. EXAM DESCRIPTION: CT - Abdomen Pelvis Wo Contrast - 03/08/2018 8:56 am CLINICAL HISTORY: Abdominal pain, constipation COMPARISON: None. TECHNIQUE: Axial [address] imaging of the abdomen and pelvis was performed without IV contrast. No IV contrast was given because of allergy, abnormal renal function, patient refusal or physician request. Oral contrast was given. All CT scans are performed using dose optimization technique as appropriate and may include automated exposure control or mA/KV adjustment according to patient size. FINDINGS: No acute infiltrate in the lung bases. No pneumothorax or pleural effusion. There is a small 8 mm nodular focus that appears to be pleural based on the coronal reconstruction. This is probably pleural or subpleural scarring. Long-term significance is doubtful. No prior imaging is available. A 6-12 month follow-up examination of the chest could be performed to monitor for stability. The liver, spleen and pancreas show no suspicious findings on non-contrast imaging. Gallbladder and biliary tree are also without suspicious finding. No hydronephrosis of either kidney. Extrarenal pelves are present. No obstructing or nonobstructing calculi. Patient has a nonspecific mild to moderate perinephric stranding pattern not uncommon in patients this age. Patient has multiple bilateral low-attenuation masses. These are all believed to be cysts. No one mass shows more suspicious characteristics. No significant adrenal finding. Isodense renal masses and pyelonephritis cannot be excluded in the absence of IV contrast. Urinary bladder is fully contracted around a Lezama catheter limiting assessment. No bladder calculi seen. No gastric dilatation or gastric wall thickening. No acute small bowel finding. Patient has prominent sigmoid diverticulosis without diverticulitis. There is large stool volume filling but not dilating the cecum and ascending colon. Colon is otherwise clear of any stool volume. No active colon process seen. No free air, free fluid or inflammatory stranding. No mass or bulky lymphadenopathy. Patient has a small fat only umbilical hernia. Small right- side and moderate left-side fat filled inguinal hernia is present. Prostate gland and seminal vesicles normal range. Disc and bony degenerative changes are present. No acute or pathologic bone process seen. IMPRESSION: No obstruction, free air or surgically emergent finding. Patient has a large stool volume filling the right-side of the colon. Transverse colon to rectum are clear of any measurable stool volume. There is sigmoid diverticulosis without diverticulitis. No hydronephrosis or obstructing calculus. Numerous bilateral renal cysts are present with a nonspecific perinephric stranding pattern. Isodense masses and pyelonephritis are not excluded. Small nodular focus at the right lung base warranting CT re-evaluation in 6-12 months. Full assessment is limited is the absence of IV contrast. Conclusions/Impression: A/ AMY/ CKD III, improved. Obstructive Uropathy with elevated PSA. HTN. Gout. Hypocalcemia. P/ Continue current POC and Medications. Agree with Lezama. Change to 1/2NS. Start Vitamin D. No NSAIDs. AM labs. Daily weight. Recommend a urology evaluation. Consider discharging with a lezama catheter and a urology follow up if urology not available at this time. Thank you kindly for the consultation.
[2018-03-09] MEDS: NACHLORIDE 0.45% 1,000 ML IV SCH (23:41)
[2018-03-10 02:05] VITALS: O2SAT 95
[2018-03-10 06:08] LABS: Absolute Lymphocytes (CBC) 1.6 K/uL (0.7-4.9); Basophils % 0.4 % (0-1.3); Eosinophils % 2.4 % (0-4.4); Hematocrit 36.2 % (39.6-49.0); MPV 9.9 fL (7.6-11.3); Monocytes % 11.5 % (3.3-12.3); RBC Red Blood Cell Count 3.85 M/uL (4.33-5.43)
[2018-03-10 06:23] LABS: Albumin 2.9 g/dL (3.4-5.0); Bilirubin Total 0.6 mg/dL (0.2-1.0); Magnesium 2.1 mg/dL (1.8-2.4); Phosphorus 2.8 mg/dL (2.5-4.9); Potassium 4.9 mmol/L (3.5-5.1); Protein, Total 6.4 g/dL (6.4-8.2)
[2018-03-10] MEDS: MULTIVIT W/ MINERAL TAB PO SCH (08:26)
[2018-03-10] MEDS: ALLOPURINOL 300 MG TAB PO SCH (08:26)
[2018-03-10] MEDS: NACHLORIDE 0.45% 1,000 ML IV SCH (08:27)
[2018-03-10 12:11] VITALS: BP 140/62; TEMP 98
[2018-03-10] MEDS ORDERED: DOCUSATE NA 100 MG CAP PO SCH (21:00)
--- NOTE | 2018-03-10 21:46 | P.PN ---
Date of Service: 03/10/18 Vital Signs Temp Pulse Resp BP Pulse Ox 98.0 F 55 18 140/62 99 03/10/18 12:00 03/10/18 12:00 03/10/18 12:00 03/10/18 12:03/10/18 12:00 Assessment/ Plan: Nephrology. Feeling better. Wants to go home. CPS stable without CP or SOB. No acute events overnight. Vitals, medications, blood work and imaging reviewed. General: In no apparent distress, Oriented x3, Cooperative HEENT: Atraumatic Neck: Supple, JVD not distended Respiratory: Clear to auscultation bilaterally, Normal air movement Cardiovascular: Regular rate/rhythm, No rubs Gastrointestinal: Soft and benign, Non-distended Musculoskeletal: No clubbing, No contractures Integumentary: No rashes, No cyanosis Neurological: Normal speech Blood work reviewed in the chart. Serum creatinine 5.8 to 2.8. Hgb 12.1 Imagings Data: EXAM DESCRIPTION: US - Renal Ultrasound-Complete - 03/08/2018 7:09 pm CLINICAL HISTORY: Acute kidney infection COMPARISON: CT study March 08 FINDINGS: The right kidney measures 11.2 x 4.7 x 5.8 cm. The left kidney measures 11.4 x 5.6 x 6.7 cm. Cortical thickness is normal. Echogenicity is increased most likely from underlying medical renal disease. No hydronephrosis or suspicious renal mass. Bilateral renal cysts are present largest 3.5 cm on the right and 2.1 cm on the left. No suspicious characteristics. Urinary bladder is fully contracted precluding any accurate assessment. IMPRESSION: No hydronephrosis or suspicious renal mass. Bilateral renal cysts are present. Increased renal cortical echogenicity from underlying medical renal disease. Urinary bladder is fully contracted precluding assessment. EXAM DESCRIPTION: CT - Abdomen Pelvis Wo Contrast - 03/08/2018 8:56 am CLINICAL HISTORY: Abdominal pain, constipation COMPARISON: None. TECHNIQUE: Axial [address] imaging of the abdomen and pelvis was performed without IV contrast. No IV contrast was given because of allergy, abnormal renal function, patient refusal or physician request. Oral contrast was given. All CT scans are performed using dose optimization technique as appropriate and may include automated exposure control or mA/KV adjustment according to patient size. FINDINGS: No acute infiltrate in the lung bases. No pneumothorax or pleural effusion. There is a small 8 mm nodular focus that appears to be pleural based on the coronal reconstruction. This is probably pleural or subpleural scarring. Long-term significance is doubtful. No prior imaging is available. A 6-12 month follow-up examination of the chest could be performed to monitor for stability. The liver, spleen and pancreas show no suspicious findings on non-contrast imaging. Gallbladder and biliary tree are also without suspicious finding. No hydronephrosis of either kidney. Extrarenal pelves are present. No obstructing or nonobstructing calculi. Patient has a nonspecific mild to moderate perinephric stranding pattern not uncommon in patients this age. Patient has multiple bilateral low-attenuation masses. These are all believed to be cysts. No one mass shows more suspicious characteristics. No significant adrenal finding. Isodense renal masses and pyelonephritis cannot be excluded in the absence of IV contrast. Urinary bladder is fully contracted around a Lezama catheter limiting assessment. No bladder calculi seen. No gastric dilatation or gastric wall thickening. No acute small bowel finding. Patient has prominent sigmoid diverticulosis without diverticulitis. There is large stool volume filling but not dilating the cecum and ascending colon. Colon is otherwise clear of any stool volume. No active colon process seen. No free air, free fluid or inflammatory stranding. No mass or bulky lymphadenopathy. Patient has a small fat only umbilical hernia. Small right- side and moderate left-side fat filled inguinal hernia is present. Prostate gland and seminal vesicles normal range. Disc and bony degenerative changes are present. No acute or pathologic bone process seen. IMPRESSION: No obstruction, free air or surgically emergent finding. Patient has a large stool volume filling the right-side of the colon. Transverse colon to rectum are clear of any measurable stool volume. There is sigmoid diverticulosis without diverticulitis. No hydronephrosis or obstructing calculus. Numerous bilateral renal cysts are present with a nonspecific perinephric stranding pattern. Isodense masses and pyelonephritis are not excluded. Small nodular focus at the right lung base warranting CT re-evaluation in 6-12 months. Full assessment is limited is the absence of IV contrast. Conclusions/Impression: A/ AMY/ CKD III, improved. Obstructive Uropathy with elevated PSA. HTN. Gout. Hypocalcemia. P/ Continue current POC and Medications. Agree with Lezama. No NSAIDs. AM labs. Daily weight. Recommend a urology evaluation. Consider discharging with a lezama catheter and a urology follow up if urology not available at this time. Case discussed with Dr. Cintron.
--- NOTE | 2018-03-11 14:34 | DS ---
Date of Discharge: 03/10/2018 Respiratory Therapy Technician: Dr. Rodgers with Nephrology. Admitting Diagnoses: 1.Obstructive uropathy. 2.Acute kidney injury. 3.Hypertension. 4.Gout. Discharge Diagnoses: 1.Obstructive uropathy, secondary to likely prostatic inflammation versus possible cancer. 2.[id number] kidney injury, improved. 3.Incidental finding of right lung nodule. Recommend repeat CT in 6 to 12 months. 4.Elevated PSA. The patient may have prostate cancer versus acute inflammation. No Urology availab le. The patient will need to follow up with Dr. Buenrostro next week. We will continue with Pollack cathet er given history of obstructive uropathy. 5.Gout. 6.Sigmoid diverticulosis without diverticulitis. Hospital Course: The patient is an 82-year-old male with past medical history of hypertension and go ut, who came in with urinary retention going about for past couple of weeks. The patient has had sym ptoms of nocturia and dribbling and incomplete bladder emptying. The patient was found to have eleva tobias creatinine of 5.9. Pollack catheter was placed. IV fluids were initiated. He was seen by Nephrol jeannie, Dr. Rodgers. The patient's kidney function improved significantly and was 1.7 on discharge. Wh ite count remained stable. His urine did not show any bacteria or signs of infection. Renal ultraso und was done, which showed no hydronephrosis or suspicious renal mass. He did have bilateral renal c ysts. He did have increased renal cortical echogenicity from underlying medical renal disease. CT s can was done of the abdomen and pelvis, which did not show any abnormalities in the prostate gland or the seminal vesicles. He did not have any hydronephrosis or obstructing calculus. He did have mult iple bilateral renal cysts. Incidental finding of right lung base nodule of 8 mm was found, which wa s recommended to be re-evaluated in 6 [address] scan. The patient otherwise did well. He is able to ambulate, tolerate his diet. He did complain of some constipation and was given stool so fteners. Unfortunately, Urology was unavailable as his PSA level was checked and was elevated at 29. The patient was explained. The patient understands that his PSA level is elevated due to possible malignancy versus inflammation or infection. The patient is to follow with Urology to have his prost ate examined and to discuss further testing or a biopsy to rule out malignancy. was at the beds amrita. All questions were answered. The patient was then discharged home in a stable condition. Activity: As tolerated. Medications: As per medication reconciliation list. Followup: Follow up with primary care physician, Dr. Giron, in 2 to 3 days. Follow up with Dr. Liz sahh, urologist, next week. Keep Pollack catheter in place. Return to ER for worsening condition. Diet: Heart healthy. Physical Examination: General: Awake, alert, oriented x3, in no acute distress. CV: S1, S2. No murmurs. RESPIRATORY: Moving air well bilaterally. No wheezing. Abdomen: Soft, nontender, nondistended. Positive bowel sounds. Extremities: No clubbing, cyanosis, or edema. Neurologic: Nonfocal. Total time spent discharging the patient was 35 minutes. KALE Voice ID: [id number] Report ID: [id number]
== END 2018-03-10 14:10 | disposition home or self-care (01) | DRG 683 ==
LOC: ER 05:44 → ERHOLD 10:46 → 4TH 16:24
PROVIDERS: ADMIT Family Medicine; ATTEND Family Medicine
DX: N17.9 Acute kidney failure, unspecified (principal); N13.8 Other obstructive and reflux uropathy; N41.9 Inflammatory disease of prostate, unspecified; C61 Malignant neoplasm of prostate; R91.1 Solitary pulmonary nodule; M10.9 Gout, unspecified; K57.30 Diverticulosis of large intestine without perforation or abscess without bleeding; N28.1 Cyst of kidney, acquired; I12.9 Hypertensive chronic kidney disease with stage 1 through stage 4 chronic kidney disease, or unspecified chronic kidney disease; N18.3 Chronic kidney disease, stage 3 (moderate); E83.51 Hypocalcemia; Z79.82 Long term (current) use of aspirin; E78.00 Pure hypercholesterolemia, unspecified; K59.00 Constipation, unspecified
CPT/HCPCS: 36415; 51702; 74176; 76770; 80048; 80053; 80061; 80076; 81003; 81015; 82150; 83690; 83735; 84100; 85025; 96361; 96374; 96375; 99285; G0103; J2405; J7030

== ENCOUNTER 2018-06-10 20:57 | Emergency (ER) | payer OTHER, MEDICARE ==
--- OUTSIDE RECORDS SUMMARY | 2018-06-10 20:59 | XMS REPORT | Clinical Summary ---
:1935 Author Organization [facility] Address [address] [place] [address] Care Team Providers Name Role Phone Asked, No Pcp Primary Care Provider Unavailable Allergies No Known Allergies Current Medications Prescription Sig. Disp. Refills Start Date End Date Status losartan (COZAAR) 25 every morning. Active MG tablet pravastatin nightly. Active (PRAVACHOL) 40 MG tablet tamsulosin (FLOMAX) nightly. Active 0.4 mg capsule finasteride (PROSCAR) every evening. Active 5 mg tablet bimatoprost (LUMIGAN) nightly. Active 0.01 % ophthalmic drops multivit-min/FA/lycop Take by mouth. Active en/lutein (CENTRUM SILVER MEN ORAL) ciprofloxacin (CIPRO) Cipro 500 mg tablet Active 500 MG tablet take one tablet by mouth twice daily starting 2 days prior to surgery and continue after surgery docusate sodium Take 1 capsule 60 capsule 0 06/09/2018 07/09/2018 Active (COLACE) 100 MG (100 mg total) capsule by mouth 2 (two) times a day for 30 days. ciprofloxacin (CIPRO) Take 1 tablet 8 tablet 0 06/09/2018 06/13/2018 Active 500 MG tablet (500 mg total) by mouth 2 (two) times a day for 4 days. acetaminophen-codeine Take 1 tablet by 30 tablet 0 06/09/2018 06/19/2018 Active (TYLENOL WITH CODEINE mouth every 6 #3) 300-30 mg per (six) hours as tablet needed for moderate pain for up to 10 days. bicalutamide Take 1 tablet 30 tablet 0 06/09/2018 07/09/2018 Active (CASODEX) 50 mg chemo (50 mg total) by tablet mouth daily for 30 days. Active Problems Problem Noted Date Benign localized hyperplasia of prostate with urinary obstruction 06/08/2018 Encounters Date Type Specialty Care Team Description 06/09/2018 Patient Outreach Quality Ana Wallace RN 06/08/2018 - Hospital Encounter General Internal [facility], Benign localized 06/09/2018 Medicine Alverto Bang MD hyperplasia of prostate with urinary obstruction 06/08/2018 Anesthesia Event Urology Chuck Oquendo, DO 06/08/2018 Procedure Pass Urology 06/08/2018 Surgery Urology C[facility], CYSTOSCOPY, WITH Alverto Bang MD TRANSURETHERAL RESECTION OF PROSTATE 06/03/2018 Pre-Admit Testing Pre-Admission [facility], Pre-op testing Appointment Testing Alverto Bang MD (Primary Dx) 06/03/2018 Anesthesia Event Pre-Admission Sesar Santos, Yoel Denson NP after 06/09/2017 Social History Tobacco Use Types Packs/Day Years Used Date Former Smoker Cigarettes 3 Quit: 06/03/1963 Smokeless Tobacco: Never Used Alcohol Use Drinks/Week oz/Week Comments Yes social Sex Assigned at Date Recorded Not on file Last Filed Vital Signs Vital Sign Reading Time Taken Blood Pressure 133/62 06/09/2018 11:19 AM CDT Pulse 58 06/09/2018 11:19 AM CDT Temperature 35.4 C (95.8 F) 06/09/2018 11:19 AM CDT Respiratory Rate 24 06/09/2018 11:19 AM CDT Oxygen Saturation 97% 06/09/2018 11:19 AM CDT Inhaled Oxygen Concentration - - Weight 85.4 kg (188 lb 5 oz) 06/08/2018 11:54 AM CDT Height 180.3 cm (5' 11") 06/08/2018 11:54 AM CDT Body Mass Index 26.26 06/08/2018 11:54 AM CDT Plan of Treatment Health Maintenance Due Date Last Done Comments SHINGRIX VACCINE (#1) 1987 ZOSTER VACCINE 1997 PNEUMOCOCCAL POLYSACCHARIDE VACCINE AGE 65 AND OVER 2002 PNEUMOCOCCAL-13 2002 INFLUENZA VACCINE 04/15/2018 Procedures Procedure Name Priority Date/Time Associated Comments Diagnosis NM BONE SCAN WHOLE STAT 06/09/2018 1:47 Results for this BODY PM CDT procedure are in the results section. NJ AN ELECTIVE Routine 06/08/2018 2:14 SUPRAGLOTTIC AIRWAY PM CDT Procedure Note - Jaun Ryan II, MD - 06/08/2018 2:14 PM CDT Airway Date/Time: 06/08/2018 2:08 PM Performed by: JAUN RYAN II Authorized by: JAUN RYAN II Location: OR Urgency: Elective Difficult Airway: No Anesthesiologist: JAUN RYAN II Performed by: anesthesiologist Preoxygenated with 100% O2: Yes C-spine Precautions Maintained Throughout: Yes Mask Ventilation: Not attempted Final Airway Type: Supraglottic airway Final LMA: Ambu LMA Size: 5 Number of Attempts at Approach: 1 CYSTOSCOPY, WITH TURP 06/08/2018 2:00 PM CDT Benign localized hyperplasia of prostate with urinary obstruction Case Notes REQ TF CASE IN CYSTO 2, POSSIBLE EXTENDED RECOVERY NEEDED Special Needs REQ TF CASE IN CYSTO 2, POSSIBLE EXTENDED RECOVERY NEEDED ECG PRE/POST OP Routine 06/03/2018 3:32 PM Pre-op testing Results for this CDT procedure are in the results section. URINE CULTURE Routine 06/03/2018 3:20 PM Results for this CDT procedure are in the results section. ESTIMATED GFR Routine 06/03/2018 3:15 PM Results for this CDT procedure are in the results section. TYPE AND SCREEN Routine 06/03/2018 3:15 PM Pre-op testing Results for this CDT procedure are in the results section. URINALYSIS SCREEN AND Routine 06/03/2018 3:15 PM Pre-op testing Results for this MICROSCOPY, WITH CDT procedure are in the REFLEX TO CULTURE results section. BASIC METABOLIC PANEL Routine 06/03/2018 3:15 PM Pre-op testing Results for this CDT procedure are in the results section. CBC HEMOGRAM Routine 06/03/2018 3:15 PM Pre-op testing Results for this CDT procedure are in the results section. after 06/09/2017 Results NM Bone Scan Whole Body (06/09/2018 1:47 PM) Narrative Performed At PROCEDURE:NM BONE SCAN WHOLE BODY [facility] CLINICAL HISTORY:prostate cancermets COMPARISON:No prior bone scans or other images available. TECHNIQUE: The patient was injected with 25 millicuries of [id number] intravenously, followed 3 hours later by whole-body scanning in the anterior and posterior projections. FINDINGS: Marked uptake is present in a couple of lower thoracic vertebrae, upper sternum, centrally in the sacrum, and near the left SI joint. Scattered foci of mild uptake are present bilaterally in the ribs, upper and lower lumbar spine, and bilateral pelvic bones. Mild degenerative uptake in the knees. IMPRESSION: Numerous sites of osseous metastatic disease. [facility]-[id number] Procedure Note Interface, Radiology Results Incoming - 06/09/2018 1:58 PM CDT PROCEDURE: NM BONE SCAN WHOLE BODY CLINICAL HISTORY: prostate cancer mets COMPARISON: No prior bone scans or other images available. TECHNIQUE: The patient was injected with 25 millicuries of [id number] intravenously, followed 3 hours later by whole-body scanning in the anterior and posterior projections. FINDINGS: Marked uptake is present in a couple of lower thoracic vertebrae, upper sternum , centrally in the sacrum, and near the left SI joint. Scattered foci of mild uptake are present bilaterally in the ribs, upper and lower lumbar spine, and bilateral pelvic bones. Mild degenerative uptake in the knees. IMPRESSION: Numerous sites of osseous metastatic disease. [facility]-[id number] Performing Organization Address [facility] Phone Number [facility] [address] [place] [address] ECG Pre/Post Op (06/03/2018 3:32 PM) Ventricular rate 67 [facility] Atrial rate 67 [facility] NJ interval 140 [facility] QRSD interval 74 [facility] QT interval 388 [facility] QTC interval 409 [facility] P axis 1 12 [facility] QRS axis 1 0 [facility] T wave axis 71 [facility] EKG impression Sinus rhythm with marked sinus arrhythmia [facility] MUSE with occasional premature ventricular complexes-Otherwise normal ECG-No previous ECGs available- Performing Organization Address [facility] Phone Number [facility] MUSE [address] [place] [address] Urine culture (06/03/2018 3:20 PM) Urine culture SEE COMMENTComment: Bacteriuria [facility] DEPARTMENT OF PATHOLOGY screen negative. AND GENOMIC MEDICINE Performing Organization Address [facility] Cent[facility]ode Phone Number [facility] DEPARTMENT OF PATHOLOGY AND [address] [place] [address] [facility] Urinalysis screen and microscopy, with reflex to culture (06/03/2018 3:15 PM) Specimen site Clean catch [facility] DEPARTMENT OF PATHOLOGY AND GENOMIC MEDICINE Color, UA Straw [facility] DEPARTMENT OF PATHOLOGY AND GENOMIC MEDICINE Appearance, UA Clear [facility] DEPARTMENT OF PATHOLOGY AND GENOMIC MEDICINE Specific gravity, UA 1.014 1.001 - 1.035 [facility] DEPARTMENT OF PATHOLOGY AND GENOMIC MEDICINE pH, UA 5.0 5.0 - 8.5 [facility] DEPARTMENT OF PATHOLOGY AND GENOMIC MEDICINE Protein, UA Negative Negative [facility] DEPARTMENT OF PATHOLOGY AND GENOMIC MEDICINE Glucose, UA Negative Negative [facility] DEPARTMENT OF PATHOLOGY AND GENOMIC MEDICINE Ketones, UA Negative Negative [facility] DEPARTMENT OF PATHOLOGY AND GENOMIC MEDICINE Bilirubin, UA Negative Negative [facility] DEPARTMENT OF PATHOLOGY AND GENOMIC MEDICINE Blood, UA Negative Negative [facility] DEPARTMENT OF PATHOLOGY AND GENOMIC MEDICINE Nitrite, UA Negative Negative [facility] DEPARTMENT OF PATHOLOGY AND GENOMIC MEDICINE Urobilinogen, UA <2.0 <2.0 [facility] DEPARTMENT OF PATHOLOGY AND GENOMIC MEDICINE Leukocyte esterase, UA Negative Negative [facility] DEPARTMENT OF PATHOLOGY AND GENOMIC MEDICINE WBC, UA <1 0 - 1 /HPF [facility] DEPARTMENT OF PATHOLOGY AND GENOMIC MEDICINE RBC, UA 2 0 - 5 /HPF [facility] DEPARTMENT OF PATHOLOGY AND GENOMIC MEDICINE Bacteria, UA Few None seen [facility] DEPARTMENT OF PATHOLOGY AND GENOMIC MEDICINE Yeast, UA None seen [facility] DEPARTMENT OF PATHOLOGY AND GENOMIC MEDICINE Yeast with pseudohyphae, UA None seen [facility] DEPARTMENT OF PATHOLOGY AND GENOMIC MEDICINE Specimen Urine Performing Organization Address City/[facility] Cent[facility]ode Phone Number [facility] DEPARTMENT OF PATHOLOGY AND [address] [place], [place] [id number] [facility] Estimated GFR (06/03/2018 3:15 PM) Estimated GFR 35 (A) mL/min/1.73 m2 [facility] DEPARTMENT OF Comment: PATHOLOGY AND GENOMIC CatergoryUnitsInterpretation MEDICINE G1 >=90 Normal or high G2 60-89Mildly decreased [id number] to moderately decreased [id number] to severely decreased G4 15-29Severely decreased G5 <15Kidney failure The eGFR was calculated using the Chronic Kidney Disease Epidemiology Collaboration (CKD-EPI) equation. Interpretation is based on recommendations of the National Kidney Foundation-Kidney Disease Outcomes Quality Initiative (NKF-KDOQI) published in 2014. Specimen Plasma specimen Performing Organization Address City/[facility]/Zipcode Phone Number [facility] DEPARTMENT OF PATHOLOGY AND [address] [place] [id number] [facility] CBC hemogram (06/03/2018 3:15 PM) WBC 7.89 4.50 - 11.00 k/uL [facility] DEPARTMENT OF PATHOLOGY AND GENOMIC MEDICINE RBC 4.11 (L) 4.40 - 6.00 m/uL [facility] DEPARTMENT OF PATHOLOGY AND GENOMIC MEDICINE HGB 12.4 (L) 14.0 - 18.0 g/dL [facility] DEPARTMENT OF PATHOLOGY AND GENOMIC MEDICINE HCT 39.1 (L) 41.0 - 51.0 % [facility] DEPARTMENT OF PATHOLOGY AND GENOMIC MEDICINE MCV 95.1 82.0 - 100.0 fL [facility] DEPARTMENT OF PATHOLOGY AND GENOMIC MEDICINE MCH 30.2 27.0 - 34.0 pg [facility] DEPARTMENT OF PATHOLOGY AND GENOMIC MEDICINE MCHC 31.7 31.0 - 37.0 g/dL [facility] DEPARTMENT OF PATHOLOGY AND GENOMIC MEDICINE RDW - SD 44.6 37.0 - 55.0 fL [facility] DEPARTMENT OF PATHOLOGY AND GENOMIC MEDICINE MPV 11.1 8.8 - 13.2 fL [facility] DEPARTMENT OF PATHOLOGY AND GENOMIC MEDICINE Platelet count 232 150 - 400 k/uL [facility] DEPARTMENT OF PATHOLOGY AND GENOMIC MEDICINE Nucleated RBC 0.00 /100 WBC [facility] DEPARTMENT OF PATHOLOGY AND GENOMIC MEDICINE Specimen Blood Performing Organization Address City/[facility]ode Phone Number [facility] DEPARTMENT OF PATHOLOGY AND [address] [place] [address] GENOMIC MEDICINE Type and screen (06/03/2018 3:15 PM) ABO grouping O [facility] DEPARTMENT OF PATHOLOGY AND GENOMIC MEDICINE Rh type POS [facility] DEPARTMENT OF PATHOLOGY AND GENOMIC MEDICINE Antibody screen (gel) NEG [facility] DEPARTMENT OF PATHOLOGY AND GENOMIC MEDICINE Specimen Blood Performing Organization Address [facility]/Zipcode Phone Number [facility] DEPARTMENT OF PATHOLOGY AND [address] [place], [place] [phone] GENOMIC MEDICINE Basic metabolic panel (06/03/2018 3:15 PM) Sodium 141 135 - 148 mEq/L [facility] DEPARTMENT OF PATHOLOGY AND GENOMIC MEDICINE Potassium 5.1 (H) 3.5 - 5.0 mEq/L [facility] DEPARTMENT OF PATHOLOGY AND GENOMIC MEDICINE Chloride 101 98 - 112 mEq/L [facility] DEPARTMENT OF PATHOLOGY AND GENOMIC MEDICINE CO2 24 24 - 31 mEq/L [facility] DEPARTMENT OF PATHOLOGY AND GENOMIC MEDICINE Anion gap 16@ANIO (H) 7 - 15 mEq/L [facility] DEPARTMENT OF PATHOLOGY AND GENOMIC MEDICINE BUN 29 (H) 8 - 23 mg/dL [facility] DEPARTMENT OF PATHOLOGY AND GENOMIC MEDICINE Creatinine 1.79 (H) 0.70 - 1.20 mg/dL [facility] DEPARTMENT OF PATHOLOGY AND GENOMIC MEDICINE Glucose 80 65 - 99 mg/dL [facility] DEPARTMENT OF PATHOLOGY AND GENOMIC MEDICINE Calcium 9.8 8.8 - 10.2 mg/dL [facility] DEPARTMENT OF PATHOLOGY AND GENOMIC MEDICINE Specimen Plasma specimen Performing Organization Address City/State/Zipcode Phone Number [facility] DEPARTMENT OF PATHOLOGY AND [address] [place] [address] GENOMIC MEDICINE after 06/09/2017 Insurance Payer Benefit Plan / Group Subscriber ID Type Phone Address MEDICARE MEDICARE PART A AND B xxxxxxxxxx Medicare [place], [place] AARP AARP SUPPLEMENT xxxxxxxxxxx Commercial Home: [id number] [phone] [place], [place] [phone]
--- NOTE | 2018-06-10 22:01 | RAD REPORT ---
EXAM DESCRIPTION: RAD - Abdomen Acute Series - 06/10/2018 9:51 pm CLINICAL HISTORY: Abdominal pain FINDINGS: Air-fluid levels are present within nondilated bowel in a nonspecific fashion. Free air is not seen beneath the diaphragm. The lungs appear clear of acute infiltrate Small calcifications in the pelvis may represent phleboliths
[2018-06-10 22:22] LABS: Absolute Lymphocytes (CBC) 1.4 K/uL (0.7-4.9); Absolute Monocytes 1.2 K/uL (0.1-1.3); Absolute Neutrophil 6.4 K/uL (1.8-8.0); Basophils % 0.3 % (0-1.3); Eosinophils % 1.5 % (0-4.4); Hematocrit 33.7 % (39.6-49.0); Lymphocytes % 14.9 % (15.3-44.8); MCV 89.9 fL (80-100); MPV 9.3 fL (7.6-11.3); Monocytes % 12.9 % (3.3-12.3); RBC Red Blood Cell Count 3.75 M/uL (4.33-5.43)
[2018-06-10 22:27] LABS: Urine Bacteria <20 /HPF (NONE SEEN); Urine Culture Reflex Order REFLEXED; Urine Mucus 1+ /HPF (NONE SEEN)
[2018-06-10 22:35] LABS: Potassium 4.2 mmol/L (3.5-5.1)
[2018-06-10 22:40] LABS: Urine Appearance CLOUDY; Urine Bilirubin NEGATIVE (NEG); Urine Blood 3+ (NEG); Urine Glucose NEGATIVE (NEG); Urine Protein 1+ (NEG); Urine Urobilinogen 0.2 mg/dL (0.2-1.0); Urine pH 5.5 (5.0-7.0)
[2018-06-10 22:41] LABS: Urine Color OTHER; Urine Microscopic Reflex NO UMIC
[2018-06-10] MEDS ORDERED: BISACODYL 10 MG RECTAL SUPP ONE (23:07)
[2018-06-10] MEDS ORDERED: NA CHLORIDE 0.9% 1,000 ML ONE (23:14)
--- NOTE | 2018-06-11 00:06 | ER ---
Nurse's Notes [facility] Name: Jax Bojorquez Age: 82 yrs Sex: Male : 1935 Arrival Date: 06/10/2018 Time: 20:59 Bed 19 Private MD: Diagnosis: Retention of urine;Constipation Presentation: 06/10 21:17 Presenting complaint: Patient states: Pressure to lower abdomen, reports constipation lp1 and difficulty urinating x 1 day; Prostate surgery on Friday, discharged on Friday, states " I can only pee and a few drops and it's painful". Transition of care: patient was not received from another setting of care. Onset of symptoms was June 10, 2018. Risk Assessment: Do you want to hurt yourself or someone else? Patient reports no desire to harm self or others. Initial Sepsis Screen: Does the patient meet any 2 criteria? No. Patient's initial sepsis screen is negative. Does the patient have a suspected source of infection? No. Patient's initial sepsis screen is negative. Care prior to arrival: None. 21:17 Method Of Arrival: Wheelchair lp1 21:17 Acuity: JASMEET 3 lp1 Historical: - Allergies: 21:21 No Known Allergies; lp1 - Home Meds: 21:21 losartan 25 mg oral tab once daily [Active]; Lumigan 0.01 % ophthalmic drop [Active]; lp1 pravastatin 40 mg Oral tab 1 tab once daily [Active]; Proscar 5 mg Oral tab 1 tab once daily [Active]; tamsulosin 0.4 mg oral cp24 1 cap once daily [Active]; Colace 100 mg oral cap 1 cap 2 times per day [Active]; 21:45 acetaminophen-codeine 300-30 mg Oral tab 1 tab every 6 hours [Active]; Ustell 120-0.12 lp1 mg oral cap daily [Active]; bicalutamide 50 mg oral tab [Active]; - PMHx: 21:21 High Cholesterol; Hypertension; lp1 - PSHx: 21:21 Prostate surgery (06/08/18); lp1 - Immunization history:: Adult Immunizations up to date. - Social history:: Smoking status: Patient/guardian denies using tobacco. - Ebola Screening: : No symptoms or risks identified at this time. Screenin:22 Abuse screen: Denies threats or abuse. Denies injuries from another. Nutritional lp1 screening: No deficits noted. Tuberculosis screening: No symptoms or risk factors identified. Fall Risk None identified. Assessment: 21:30 General: Appears uncomfortable, Behavior is appropriate for age. Pain: Complains of lp1 pain in right lower quadrant and left lower quadrant Pain currently is 9 out of 10 on a pain scale. Neuro: Level of Consciousness is awake, alert, obeys commands, Oriented to person, place, time, situation. Cardiovascular: Patient's skin is warm and dry. Respiratory: Respiratory effort is even, unlabored. GI: Abdomen is distended, Bowel sounds present X 4 quads. Abdomen is tender to palpation in right lower quadrant and left lower quadrant. : Reports inability to void, pain with urination. EENT: No signs and/or symptoms were reported regarding the EENT system. Derm: Skin is pink, warm \\T\\ dry. Musculoskeletal: Circulation, motion, and sensation intact. 22:28 Reassessment: Patient is alert, oriented x 3, equal unlabored respirations, skin lp1 warm/dry/pink. Patient states significant relief after catheter insertion Patient states feeling better. Patient states symptoms have improved. 23:05 Reassessment: Patient states having BM x3 at this time, Provider notified Patient lp1 states feeling better. Patient states symptoms have improved. 06/11 00:18 Reassessment: Patient is alert, oriented x 3, equal unlabored respirations, skin lp1 warm/dry/pink. Patient denies pain at this time. Patient states feeling better. Vital Signs: 06/10 21:19 BP 147 / 69; Pulse 76; Resp 18; Temp 98.6(O); Pulse Ox 96% on R/A; Weight 83.91 kg; lp1 Height 5 ft. 11 in. (180.34 cm); Pain 9/10; 22:28 BP 123 / 68; Pulse 70; Resp 18; Pulse Ox 96% on R/A; lp1 23:00 BP 129 / 76; Pulse 74; Resp 18; Pulse Ox 97% on R/A; lp1 06/11 00:00 BP 138 / 56; Pulse 66; Resp 18; Pulse Ox 98% on R/A; Pain 0/10; lp1 06/10 21:19 Body Mass Index 25.80 (83.91 kg, 180.34 cm) lp1 ED Course: 06/10 20:59 Patient arrived in ED. es 21:06 Licha Persaud, RN is Primary Nurse. lp1 21:17 Marek Bauer MD is Attending Physician. gs 21:18 Triage completed. lp1 21:18 Arm band placed on right wrist. lp1 21:22 Patient has correct armband on for positive identification. Bed in low position. Call lp1 light in reach. Pulse ox on. NIBP on. 21:40 Bladder scan completed. 462 ml. lp1 21:50 XRAY Abdomen Acute Series In Process Unspecified. EDMS 22:10 Pollack cath inserted, using sterile technique, 14 Fr., by md, balloon inflated, to lp1 gravity drainage, urine specimen collected. other Urine green in color. 22:10 Inserted saline lock: 20 gauge in left antecubital area, using aseptic technique. Blood lp1 collected. By melanie Aldrich. 06/11 00:17 No provider procedures requiring assistance completed. IV discontinued, No lp1 redness/swelling at site. Pressure dressing applied. Administered Medications: 06/10 23:05 Not Given (Patient Refused): Dulcolax Suppository 10 mg NM once lp1 23:11 Drug: NS 0.9% 1000 ml Route: IV; Rate: 1 bolus; Site: left antecubital; lp1 06/11 00:19 Follow up: IV Status: Completed infusion; IV Intake: 1000ml lp1 Intake: 00:00 IV: 1000ml (IV Fluid); Total: 1000ml. lp1 00:19 IV: 1000ml; Total: 2000ml. lp1 Output: 06/10 22:39 Urine: 550ml (Pollack); Total: 550ml. lp1 06/11 00:00 Urine: 400ml (Pollack); Total: 950ml. lp1 Outcome: 00:06 Discharge ordered by . gs 00:18 Discharged to home ambulatory, with significant other. lp1 00:18 Condition: good 00:18 Discharge instructions given to patient, significant other, Instructed on discharge instructions, follow up and referral plans. Demonstrated understanding of instructions, follow-up care. 00:18 Patient left the ED. lp1 Signatures: Dispatcher [employer] EDMT Shaunna Loo Laura, RN RN lp1 Marek Bauer MD MD gs Corrections: (The following items were deleted from the chart) 06/10 22:17 22:10 Pollack cath inserted, using sterile technique, 14 Fr., by me, balloon inflated, to lp1 gravity drainage, urine specimen collected. lp1
--- NOTE | 2018-06-11 00:07 | EDPHYS ---
Physician Documentation [facility] Name: Jax Bojorquez Age: 82 yrs Sex: Male : 1935 Arrival Date: 06/10/2018 Time: 20:59 Bed 19 Private MD: ED Physician Marek Bauer HPI: 06/11 00:03 This 82 yrs old Male presents to ER via Wheelchair with complaints of Urinary gs Retention, Constipation. 00:03 The patient presents with urinary symptoms, retention. Onset: The symptoms/episode gs began/occurred yesterday. Modifying factors: The symptoms are alleviated by nothing, the symptoms are aggravated by nothing. Associated signs and symptoms: Pertinent positives: constipation. Severity of symptoms: At their worst the symptoms were moderate, in the emergency department the symptoms are unchanged. The patient has experienced similar episodes in the past, a few times. recent turp , no hematuria, on pain meds. Historical: - Allergies: 06/10 21:21 No Known Allergies; lp1 - Home Meds: 21:21 losartan 25 mg oral tab once daily [Active]; Lumigan 0.01 % ophthalmic drop [Active]; lp1 pravastatin 40 mg Oral tab 1 tab once daily [Active]; Proscar 5 mg Oral tab 1 tab once daily [Active]; tamsulosin 0.4 mg oral cp24 1 cap once daily [Active]; Colace 100 mg oral cap 1 cap 2 times per day [Active]; 21:45 acetaminophen-codeine 300-30 mg Oral tab 1 tab every 6 hours [Active]; Ustell 120-0.12 lp1 mg oral cap daily [Active]; bicalutamide 50 mg oral tab [Active]; - PMHx: 21:21 High Cholesterol; Hypertension; lp1 - PSHx: 21:21 Prostate surgery (06/08/18); lp1 - Immunization history:: Adult Immunizations up to date. - Social history:: Smoking status: Patient/guardian denies using tobacco. - Ebola Screening: : No symptoms or risks identified at this time. ROS: 06/11 00:03 All other systems are negative. gs Exam: 00:03 Head/Face: Normocephalic, atraumatic. Eyes: Pupils equal round and reactive to light, gs extra-ocular motions intact. Lids and lashes normal. Conjunctiva and sclera are non-icteric and not injected. Cornea within normal limits. Periorbital areas with no swelling, redness, or edema. ENT: Nares patent. No nasal discharge, no septal abnormalities noted. Tympanic membranes are normal and external auditory canals are clear. Oropharynx with no redness, swelling, or masses, exudates, or evidence of obstruction, uvula midline. Mucous membranes moist. Neck: Trachea midline, no thyromegaly or masses palpated, and no cervical lymphadenopathy. Supple, full range of motion without nuchal rigidity, or vertebral point tenderness. No Meningismus. Chest/axilla: Normal chest wall appearance and motion. Nontender with no deformity. No lesions are appreciated. Cardiovascular: Regular rate and rhythm with a normal S1 and S2. No gallops, murmurs, or rubs. Normal PMI, no JVD. No pulse deficits. Respiratory: Lungs have equal breath sounds bilaterally, clear to auscultation and percussion. No rales, rhonchi or wheezes noted. No increased work of breathing, no retractions or nasal flaring. 00:03 Back: No spinal tenderness. No costovertebral tenderness. Full range of motion. Skin: Warm, dry with normal turgor. Normal color with no rashes, no lesions, and no evidence of cellulitis. MS/ Extremity: Pulses equal, no cyanosis. Neurovascular intact. Full, normal range of motion. Neuro: Awake and alert, GCS 15, oriented to person, place, time, and situation. Cranial nerves II-XII grossly intact. Motor strength 5/5 in all extremities. Sensory grossly intact. Cerebellar exam normal. Normal gait. 00:03 Constitutional: The patient appears alert, awake. 00:03 Abdomen/GI: Inspection: distension, that is moderate, in the umbilical area and suprapubic area, Palpation: mild abdominal tenderness, in all quadrants. Vital Signs: 06/10 21:19 BP 147 / 69; Pulse 76; Resp 18; Temp 98.6(O); Pulse Ox 96% on R/A; Weight 83.91 kg; lp1 Height 5 ft. 11 in. (180.34 cm); Pain 9/10; 22:28 BP 123 / 68; Pulse 70; Resp 18; Pulse Ox 96% on R/A; lp1 23:00 BP 129 / 76; Pulse 74; Resp 18; Pulse Ox 97% on R/A; 1 06/11 00:00 BP 138 / 56; Pulse 66; Resp 18; Pulse Ox 98% on R/A; Pain 0/10; 1 06/10 21:19 Body Mass Index 25.80 (83.91 kg, 180.34 cm) [facility] MDM: 06/10 21:23 Patient medically screened. 06/11 00:03 Differential diagnosis: nonspecific abdominal pain, urinary retention, constipation gs opiate induced. Data reviewed: vital signs, nurses notes. Response to treatment: the patient's symptoms have markedly improved after treatment, patient is well hydrated. and as a result, I will discharge patient. 06/10 21:24 Order name: CBC with Diff; Complete Time: 23:04 06/10 21:24 Order name: Basic Metabolic Panel; Complete Time: 23:04 06/10 21:24 Order name: Urine Microscopic Only; Complete Time: 23:04 06/10 21:24 Order name: XRAY Abdomen Acute Series; Complete Time: 22:18 06/10 22:28 Order name: Urine Culture [facility] 06/10 22:29 Order name: Urinalysis; Complete Time: 23:04 [facility] 06/10 21:24 Order name: Urine Dipstick-Ancillary (obtain specimen); Complete Time: 22:29 06/10 21:24 Order name: Bladder Scanner; Complete Time: 21:40 Administered Medications: 06/10 23:05 Not Given (Patient Refused): Dulcolax Suppository 10 mg VA once [facility] 23:11 Drug: NS 0.9% 1000 ml Route: IV; Rate: 1 bolus; Site: left antecubital; [facility] 06/11 00:19 Follow up: IV Status: Completed infusion; IV Intake: 1000ml [facility] Disposition: 06/11/18 00:06 Discharged to Home. Impression: Retention of urine, Constipation. - Condition is Stable. - Discharge Instructions: Constipation, Adult, [id number], Pollack Catheter Care, Adult, [id number]. - Medication Reconciliation Form, Thank You Letter, Antibiotic Education, Prescription Opioid Use form. - Follow up: Private Physician; When: 2 - 3 days; Reason: Re-evaluation by your physician. Signatures: Dispatcher [facility] CenterLicha Castaneda RN RN lp1 Marek Bauer MD MD gs Corrections: (The following items were deleted from the chart) 00:18 00:06 06/11/2018 00:06 Discharged to Home. Impression: Retention of urine; lp1 Constipation. Condition is Stable. Forms are Medication Reconciliation Form, Thank You Letter, Antibiotic Education, Prescription Opioid Use. Follow up: Private Physician; When: 2 - 3 days; Reason: Re-evaluation by your physician. gs
[2018-06-11 01:05] VITALS: TEMP 98.6
[2018-06-11 01:08] VITALS: BP 138/56; O2SAT 98
== END 2018-06-11 00:18 | disposition home or self-care (01) ==
LOC: ER 20:57
DX: K59.00 Constipation, unspecified (principal); I10 Essential (primary) hypertension; E78.00 Pure hypercholesterolemia, unspecified
CPT/HCPCS: 36415; 51702; 74022; 80048; 85025; 87086; 96360; 99284; J7030; 81003; 81015; 87088

== ENCOUNTER 2018-06-13 00:06 | Emergency (ER) | payer OTHER, MEDICARE ==
--- OUTSIDE RECORDS SUMMARY | 2018-06-13 00:08 | XMS REPORT | Clinical Summary ---
:1935 Author Organization [facility] Address [address] [place] [address] Care Team Providers Name Role Phone Asked, [...] Pre-Admission Sesar Santos, Yoel Denson NP after 06/12/2017 Social History Tobacco Use Types Packs/Day Years [...] CDT procedure are in the results section. HI AN ELECTIVE Routine 06/08/2018 2:14 SU[address] AIRWAY [...] IN CYSTO 2, POSSIBLE EXTENDED RECOVERY NEEDED SURGICAL PATHOLOGY Routine 06/08/2018 7:51 AM Results for this REQUEST CDT procedure are in the results section. ECG PRE/POST OP Routine 06/03/2018 3:32 PM [...] procedure are in the results section. after 06/12/2017 Results NM Bone Scan Whole Body (06/09/2018 1:47 PM) Narrative Performed At PROCEDURE:NM BONE SCAN WHOLE BODY [facility] CLINICAL HISTORY:prostate cancermets COMPARISON:No prior bone scans or other images available. TECHNIQUE: The patient was injected with 25 millicuries of [id number] intravenously, followed 3 hours later by whole-body [...] IMPRESSION: Numerous sites of osseous metastatic disease. [facility]-[id number] Procedure Note [facility], Radiology Results Incoming - 06/09/2018 1:58 PM CDT PROCEDURE: NM BONE SCAN WHOLE BODY CLINICAL HISTORY: prostate cancer mets COMPARISON: No prior bone scans or other images available. TECHNIQUE: The patient was injected with 25 millicuries of [id number] intravenously, followed 3 hours later by whole-body [...] IMPRESSION: Numerous sites of osseous metastatic disease. [facility]-[id number] Performing Organization Address [facility] Phone Number [facility] [address] [place] [address] Surgical pathology request (06/08/2018 7:51 AM) [facility] DEPARTMENT OF PATHOLOGY AND GENOMIC MEDICINE Surgical pathology report See link below for PDF [facility] DEPARTMENT OF Lab Report PATHOLOGY AND GENOMIC MEDICINE Result status This is Final Report [facility] DEPARTMENT OF for [id number] PATHOLOGY AND GENOMIC MEDICINE Performing Organization Address [facility] Phone Number [facility] DEPARTMENT OF PATHOLOGY AND [address] [place] [address] GENOMIC MEDICINE ECG Pre/Post Op (06/03/2018 3:32 PM) Ventricular rate 67 [facility] Atrial rate 67 [facility] HI interval 140 [facility] QRSD interval 74 [facility] QT interval 388 [facility] QTC interval 409 [facility] P axis 1 12 [facility] QRS axis 1 0 [facility] T wave axis 71 [facility] EKG impression Sinus rhythm with marked sinus arrhythmia [facility] M[facility] with occasional premature ventricular complexes-Otherwise normal ECG-No previous ECGs available- Performing Organization Address [facility]/Zipcode Phone Number [facility]USE [address] [place] [address] Urine culture (06/03/2018 3:20 PM) Urine culture SEE COMMENTComment: Bacteriuria [facility] DEPARTMENT OF PATHOLOGY screen negative. AND GENOMIC MEDICINE Performing Organization Address City/[facility] Phone Number [facility] DEPARTMENT OF PATHOLOGY AND [address] [place] [phone] [facility] Urinalysis screen and microscopy, with reflex to culture (06/03/2018 3:15 PM) Specimen site Clean catch [facility] DEPARTMENT OF PATHOLOGY AND GENOMIC MEDICINE Color, UA Straw [facility] DEPARTMENT OF PATHOLOGY AND GENOMIC MEDICINE Appearance, UA Clear [facility] DEPARTMENT OF PATHOLOGY AND GENOMIC MEDICINE Specific gravity, UA 1.014 1.001 - 1.035 [facility] DEPARTMENT OF PATHOLOGY AND GENOMIC MEDICINE pH, UA 5.0 5.0 - 8.5 [facility] DEPARTMENT OF PATHOLOGY AND GENOMIC MEDICINE Protein, UA Negative Negative [facility] DEPARTMENT OF PATHOLOGY AND GENOMIC MEDICINE Glucose, UA Negative Negative [facility] DEPARTMENT OF PATHOLOGY AND GENOMIC MEDICINE Ketones, UA Negative Negative [facility] DEPARTMENT OF PATHOLOGY AND GENOMIC MEDICINE Bilirubin, UA Negative Negative [facility] DEPARTMENT OF PATHOLOGY AND GENOMIC MEDICINE Blood, UA Negative Negative [facility] DEPARTMENT OF PATHOLOGY AND GENOMIC MEDICINE Nitrite, UA Negative Negative [facility] DEPARTMENT OF PATHOLOGY AND GENOMIC MEDICINE Urobilinogen, UA <2.0 <2.0 [facility] DEPARTMENT OF PATHOLOGY AND GENOMIC MEDICINE Leukocyte esterase, UA Negative Negative [facility] DEPARTMENT OF PATHOLOGY AND GENOMIC MEDICINE WBC, UA <1 0 - 1 /HPF [facility] DEPARTMENT OF PATHOLOGY AND GENOMIC MEDICINE RBC, UA 2 0 - 5 /HPF [facility] DEPARTMENT OF PATHOLOGY AND GENOMIC MEDICINE Bacteria, UA Few None seen [facility] DEPARTMENT OF PATHOLOGY AND GENOMIC MEDICINE Yeast, UA None seen [facility] DEPARTMENT OF PATHOLOGY AND GENOMIC MEDICINE Yeast with pseudohyphae, UA None seen [facility] DEPARTMENT OF PATHOLOGY AND GENOMIC MEDICINE Specimen Urine Performing Organization Address City/[facility]/Zipcode Phone Number [facility] DEPARTMENT OF PATHOLOGY AND [address] [place] [address] [facility] Estimated GFR (06/03/2018 3:15 PM) Estimated GFR 35 (A) mL/min/1.73 m2 [facility] DEPARTMENT OF Comment: PATHOLOGY AND GENOMIC CatergoryUnitsInterpretation MEDICINE G1 >=90 Normal or high G2 60-89Mildly decreased [id number] to moderately decreased [id number] to severely decreased G4 15-29Severely decreased G5 <15Kidney failure The eGFR was calculated using the Chronic Kidney Disease Epidemiology Collaboration (CKD-EPI) equation. Interpretation is based on recommendations of the National Kidney Foundation-Kidney Disease Outcomes Quality Initiative (NKF-KDOQI) published in 2014. Specimen Plasma specimen Performing Organization Address City/[facility]/Zipcode Phone Number [facility] DEPARTMENT OF PATHOLOGY AND [address] [place], [place] [phone] [facility] CBC hemogram (06/03/2018 3:15 PM) WBC 7.89 4.50 - 11.00 k/uL [facility] DEPARTMENT OF PATHOLOGY AND GENOMIC MEDICINE RBC 4.11 (L) 4.40 - 6.00 m/uL [facility] DEPARTMENT OF PATHOLOGY AND GENOMIC MEDICINE HGB 12.4 (L) 14.0 - 18.0 g/dL [facility] DEPARTMENT OF PATHOLOGY AND GENOMIC MEDICINE HCT 39.1 (L) 41.0 - 51.0 % [facility] DEPARTMENT OF PATHOLOGY AND GENOMIC MEDICINE MCV 95.1 82.0 - 100.0 fL [facility] DEPARTMENT OF PATHOLOGY AND GENOMIC MEDICINE MCH 30.2 27.0 - 34.0 pg [facility] DEPARTMENT OF PATHOLOGY AND GENOMIC MEDICINE MCHC 31.7 31.0 - 37.0 g/dL [facility] DEPARTMENT OF PATHOLOGY AND GENOMIC MEDICINE RDW - SD 44.6 37.0 - 55.0 fL [facility] DEPARTMENT OF PATHOLOGY AND GENOMIC MEDICINE MPV 11.1 8.8 - 13.2 fL [facility] DEPARTMENT OF PATHOLOGY AND GENOMIC MEDICINE Platelet count 232 150 - 400 k/uL [facility] DEPARTMENT OF PATHOLOGY AND GENOMIC MEDICINE Nucleated RBC 0.00 /100 WBC [facility] DEPARTMENT OF PATHOLOGY AND GENOMIC MEDICINE Specimen Blood Performing Organization Address City/[facility] Phone Number [facility] DEPARTMENT OF PATHOLOGY AND [address] [place] [phone] GENOMIC MEDICINE Type and screen (06/03/2018 3:15 PM) ABO grouping O [facility] DEPARTMENT OF PATHOLOGY AND GENOMIC MEDICINE Rh type POS [facility] DEPARTMENT OF PATHOLOGY AND GENOMIC MEDICINE Antibody screen (gel) NEG [facility] DEPARTMENT OF PATHOLOGY AND GENOMIC MEDICINE Specimen Blood Performing Organization Address City/[facility]/Zipcode Phone Number [facility] DEPARTMENT OF PATHOLOGY AND [address] [place] [phone] [facility] MEDICINE Basic metabolic panel (06/03/2018 3:15 PM) Sodium 141 135 - 148 mEq/L [facility] DEPARTMENT OF PATHOLOGY AND GENOMIC MEDICINE Potassium 5.1 (H) 3.5 - 5.0 mEq/L [facility] DEPARTMENT OF PATHOLOGY AND GENOMIC MEDICINE Chloride 101 98 - 112 mEq/L [facility] DEPARTMENT OF PATHOLOGY AND GENOMIC MEDICINE CO2 24 24 - 31 mEq/L [facility] DEPARTMENT OF PATHOLOGY AND GENOMIC MEDICINE Anion gap 16@ANIO (H) 7 - 15 mEq/L [facility] DEPARTMENT OF PATHOLOGY AND GENOMIC MEDICINE BUN 29 (H) 8 - 23 mg/dL [facility] DEPARTMENT OF PATHOLOGY AND GENOMIC MEDICINE Creatinine 1.79 (H) 0.70 - 1.20 mg/dL [facility] DEPARTMENT OF PATHOLOGY AND GENOMIC MEDICINE Glucose 80 65 - 99 mg/dL [facility] DEPARTMENT OF PATHOLOGY AND GENOMIC MEDICINE Calcium 9.8 8.8 - 10.2 mg/dL [facility] DEPARTMENT OF PATHOLOGY AND GENOMIC MEDICINE Specimen Plasma specimen Performing Organization Address City/State/Zipcode Phone Number [facility] DEPARTMENT OF PATHOLOGY AND [address] [place] [address] [facility] MEDICINE after 06/12/2017 Insurance Payer Benefit Plan / Group Subscriber ID Type Phone Address MEDICARE MEDICARE PART A AND B xxxxxxxxxx Medicare [place], [place] AARP AARP SUPPLEMENT xxxxxxxxxxx Commercial Home: [phone] [place], [place] [phone]
--- NOTE | 2018-06-13 01:19 | ER ---
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 Pt was to have it removed on Friday. Transition of care: patient was not received from another setting of care. Onset of symptoms was June 13, 2018. Risk Assessment: Do you want to hurt yourself or someone else? Patient reports no desire to harm self or others. Initial Sepsis Screen: Does the patient meet any 2 criteria? No. Patient's initial sepsis screen is negative. Does the patient have a suspected source of infection? No. Patient's initial sepsis screen is negative. Care prior to arrival: None. 00:22 Method Of Arrival: Ambulatory tl3 00:22 Acuity: JASMEET 3 tl3 Triage Assessment: 00:26 General: Appears uncomfortable, well groomed, well developed, well nourished, Behavior tl3 is calm, cooperative, appropriate for age. Pain: Complains of pain in groin. EENT: No signs and/or symptoms were reported regarding the EENT system. Neuro: Level of Consciousness is awake, alert, obeys commands, Oriented to person, place, time, situation, Appropriate for age. Cardiovascular: Patient's skin is warm and dry. Respiratory: Airway is patent Respiratory effort is even, unlabored, Respiratory pattern is regular, symmetrical. GI: No signs and/or symptoms were reported involving the gastrointestinal system. : Reports pain with urination, Catheter not functioning. Musculoskeletal: No signs and/or symptoms reported regarding the musculoskeletal system. Historical: - Allergies: 00: No Known Allergies; tl3 - Home Meds: 00: bicalutamide 50 mg Oral tab 1 tab once daily [Active]; Colace 100 mg Oral cap 1 cap 2 tl3 times per day [Active]; losartan 25 mg Oral tab 1 tab once daily [Active]; Lumigan 0.01 % ophthalmic drop daily [Active]; pravastatin 40 mg Oral tab 1 tab once daily [Active]; Proscar 5 mg Oral tab 1 tab once daily [Active]; tamsulosin 0.4 mg Oral cp24 1 cap once daily [Active]; Ustell 120-0.12 mg Oral cap daily [Active]; acetaminophen-codeine 300-30 mg Oral tab 1 tab every 6 hours [Active]; - PMHx: 00:26 High Cholesterol; Hypertension; tl3 - PSHx: 00:26 Prostate surgery (06/08/18); tl3 - Immunization history:: Adult Immunizations up to date. - Social history:: Smoking status: unknown. - Ebola Screening: : No symptoms or risks identified at this time. Screenin:30 Abuse screen: Denies threats or abuse. Nutritional screening: No deficits noted. tl3 Tuberculosis screening: No symptoms or risk factors identified. Fall Risk None identified. Assessment: 00:30 Reassessment: No changes from previously documented assessment. tl3 Vital Signs: 00:26 BP 144 / 82; Pulse 63; Resp 18; Temp 98.7(O); Pulse Ox 98% on R/A; tl3 ED Course: 00:09 Patient arrived in ED. ds1 00:10 Out, [facility] is Private Physician. ds1 00:22 Etta Baum, MARION is Primary Nurse. tl3 00:24 Triage completed. tl3 00:25 Ross Burks PA is PHCP. cp 00:25 Ross Kinsey MD is Attending Physician. cp 00:26 Arm band placed on right wrist. tl3 00:30 Patient has correct armband on for positive identification. Placed in gown. Bed in low tl3 position. Call light in reach. Side rails up X 1. Pulse ox on. NIBP on. 00:30 No provider procedures requiring assistance completed. tl3 01:30 Bladder irrigated via Pollack with 500 ml normal saline returned clear fluid Patient rv tolerated well. 01:31 Patient did not have IV access during this emergency room visit. intact. rv Administered Medications: No medications were administered Outcome: 01:18 Discharge ordered by . cp 01:29 Discharged to home ambulatory. rv 01:29 Condition: improved 01:29 Discharge instructions given to patient, Instructed on discharge instructions, follow up and referral plans. Demonstrated understanding of instructions, follow-up care. 01:31 Patient left the ED. rv Signatures: Tammi Sosa ds1 Ross Burks PA PA cp Lowrey, Tammy RN RN tl3 Nathaniel Mercedes RN RN rv
--- NOTE | 2018-06-13 01:19 | EDPHYS ---
Physician Documentation [facility] Name: Jax Bojorquez Age: 82 yrs Sex: Male : 1935 Arrival Date: 06/13/2018 Time: 00:09 Bed 26 Private MD: Out, [facility] ED Physician Ross Kinsey HPI: 06/13 00:35 This 82 yrs old Male presents to ER via Ambulatory with complaints of Problem cp With Urinary Catheter. 00:35 The patient presents with a Lezama catheter problem, is not draining. cp 00:35 Onset: The symptoms/episode began/occurred today. Associated signs and symptoms: cp Pertinent negatives: abdominal pain, constipation, diarrhea, fever, hematuria, vomiting. Severity of symptoms: in the emergency department the symptoms are unchanged, despite home interventions. Historical: - Allergies: 00:26 No Known Allergies; tl3 - Home Meds: 00:26 bicalutamide 50 mg Oral tab 1 tab once daily [Active]; Colace 100 mg Oral cap 1 cap 2 tl3 times per day [Active]; losartan 25 mg Oral tab 1 tab once daily [Active]; Lumigan 0.01 % ophthalmic drop daily [Active]; pravastatin 40 mg Oral tab 1 tab once daily [Active]; Proscar 5 mg Oral tab 1 tab once daily [Active]; tamsulosin 0.4 mg Oral cp24 1 cap once daily [Active]; Ustell 120-0.12 mg Oral cap daily [Active]; acetaminophen-codeine 300-30 mg Oral tab 1 tab every 6 hours [Active]; - PMHx: 00:26 High Cholesterol; Hypertension; tl3 - PSHx: 00:26 Prostate surgery (06/08/18); tl3 - Immunization history:: Adult Immunizations up to date. - Social history:: Smoking status: unknown. - Ebola Screening: : No symptoms or risks identified at this time. ROS: 00:40 Constitutional: Negative for body aches, chills, fever, poor PO intake. cp 00:40 Cardiovascular: Negative for chest pain, edema, palpitations. cp 00:40 Respiratory: Negative for cough, shortness of breath, wheezing. 00:40 Abdomen/GI: Negative for abdominal pain, nausea, vomiting, and diarrhea, constipation, abdominal distension, black/tarry stool, rectal bleeding. 00:40 Back: Negative for radiated pain. 00:40 : Positive for obstructed lezama catheter, Negative for hematuria. 00:40 Skin: Negative for cellulitis, rash. 00:40 Neuro: Negative for altered mental status, headache, weakness. 00:40 All other systems are negative. Exam: 00:45 Constitutional: The patient appears in no acute distress, alert, awake, non-toxic, well cp developed, well nourished. 00:45 Head/Face: Normocephalic, atraumatic. cp 00:45 Eyes: Periorbital structures: appear normal, Sclera: no appreciated abnormality, Lids and lashes: appear normal, bilaterally. 00:45 ENT: External ear(s): are unremarkable, Nose: is normal, Mouth: is normal, Posterior pharynx: is normal, airway is patent. 00:45 Chest/axilla: Inspection: normal. 00:45 Cardiovascular: Rate: normal. 00:45 Respiratory: the patient does not display signs of respiratory distress, Respirations: normal, no use of accessory muscles, no retractions, no splinting, no tachypnea. 00:45 Abdomen/GI: Inspection: distension, is not seen, Palpation: abdomen is soft and non-tender, in all quadrants. 00:45 Back: pain, is absent, ROM is normal. 00:45 : Male external genitalia: lezama in place and not draining, Bladder: distension, is not appreciated. Vital Signs: 00:26 BP 144 / 82; Pulse 63; Resp 18; Temp 98.7(O); Pulse Ox 98% on R/A; tl3 MDM: 00:26 Patient medically screened. cp 00:30 Differential diagnosis: UTI, Lezama catheter problem, prostatitis, urethritis. cp 01:15 Data reviewed: vital signs, nurses notes, VSS. Lezama irrigated and flushed by nursing cp staff. Lezama now draining, and as a result, I will discharge patient. 06/13 00:26 Order name: Gina. Order: flush lezama; Complete Time: 01:29 cp Administered Medications: No medications were administered Disposition: 02:00 Chart complete. cp Disposition: 06/13/18 01:18 Discharged to Home. Impression: Encounter for fitting and adjustment of non-vascular catheter - Lezama. - Condition is Stable. - Discharge Instructions: Lezama Catheter Care, Adult. - Medication Reconciliation Form, Thank You Letter, Antibiotic Education, Prescription Opioid Use form. - Follow up: Private Physician; When: 2 - 3 days; Reason: Recheck today's complaints. - Problem is new. - Symptoms are resolved. Addendum: 06/14/2018 07:17 Co-signature as Attending Physician, Ross Kinsey MD I agree with the assessment and c gao plan of care. Signatures: Ross Kinsey MD MD cha Page, Corey, PA PA cp Etta Baum, RN RN tl3 Nathaniel Mercedes RN RN rv Corrections: (The following items were deleted from the chart) 06/13 01:31 01:18 06/13/2018 01:18 Discharged to Home. Impression: Encounter for fitting and rv adjustment of non-vascular catheter - Lezama. Condition is Stable. Forms are Medication Reconciliation Form, Thank You Letter, Antibiotic Education, Prescription Opioid Use. Follow up: Private Physician; When: 2 - 3 days; Reason: Recheck today's complaints. Problem is new. Symptoms are resolved. cp
[2018-06-13 02:09] VITALS: BP 144/82; TEMP 98.7; O2SAT 98
== END 2018-06-13 01:31 | disposition home or self-care (01) ==
LOC: ER 00:06
DX: Z46.82 Encounter for fitting and adjustment of non-vascular catheter (principal); I10 Essential (primary) hypertension; E78.00 Pure hypercholesterolemia, unspecified
CPT/HCPCS: 51700; 99284

== ENCOUNTER 2018-06-14 00:24 | Emergency (ER) | payer OTHER, MEDICARE ==
--- OUTSIDE RECORDS SUMMARY | 2018-06-14 00:26 | XMS REPORT | Clinical Summary ---
:1935 Author Organization [facility] Address [address] [place] [address] Care Team Providers Name Role Phone Asked, [...] (two) times a day for 30 days. acetaminophen-codeine Take 1 tablet 30 tablet 0 06/09/2018 06/19/2018 Active (TYLENOL WITH CODEINE by mouth every #3) 300-30 mg per 6 (six) hours tablet as needed for moderate pain for up to 10 days. bicalutamide Take 1 tablet 30 tablet 0 06/09/2018 07/09/2018 Active (CASODEX) 50 mg chemo (50 mg total) tablet by mouth daily for 30 days. ciprofloxacin (CIPRO) Take 1 tablet 8 tablet 0 06/09/2018 06/13/2018 500 MG tablet (500 mg total) by mouth 2 (two) times a day for 4 days. Active Problems Problem Noted Date Benign [...] Appointment Testing Alverto Bang MD (Primary Dx) after 06/13/2017 Social History Tobacco Use Types Packs/Day Years [...] procedure are in the results section. after 06/13/2017 Results NM Bone Scan Whole Body (06/09/2018 1:47 PM) Narrative Performed At PROCEDURE:NM BONE SCAN WHOLE BODY [facility] CLINICAL HISTORY:prostate cancermets COMPARISON:No prior bone scans or other images available. TECHNIQUE: The patient was injected with 25 millicuries of [id number] intravenously, followed 3 hours later by whole-body [...] IMPRESSION: Numerous sites of osseous metastatic disease. [facility]-[id number] Procedure Note [facility], Radiology Results Incoming - 06/09/2018 1:58 PM CDT PROCEDURE: NM BONE SCAN WHOLE BODY CLINICAL HISTORY: prostate cancer mets COMPARISON: No prior bone scans or other images available. TECHNIQUE: The patient was injected with 25 millicuries of [id number] intravenously, followed 3 hours later by whole-body [...] IMPRESSION: Numerous sites of osseous metastatic disease. [facility]-[id number] Performing Organization Address [facility] [place] Phone Number [facility] [address] [place] [address] Surgical pathology request (06/08/2018 7:51 AM) [facility] DEPARTMENT OF PATHOLOGY AND GENOMIC MEDICINE Surgical pathology report See link below for PDF [facility] DEPARTMENT OF Lab Report PATHOLOGY AND GENOMIC MEDICINE Result status This is Final Report [facility] DEPARTMENT OF for [id number] PATHOLOGY AND GENOMIC MEDICINE Performing Organization Address [facility] [place] Phone Number [facility] DEPARTMENT OF PATHOLOGY AND [address] [place] [id number] GENOMIC MEDICINE ECG Pre/Post Op (06/03/2018 3:32 PM) Ventricular rate 67 [facility]USE Atrial rate 67 [facility]USE [place] interval 140 [facility] QRSD interval 74 [facility] QT interval 388 [facility] QTC interval 409 [facility] MUSE P axis 1 12 [facility] QRS axis 1 0 [facility] T wave axis 71 [facility] MUSE EKG impression Sinus rhythm with marked sinus arrhythmia [facility] MUSE with occasional premature ventricular complexes-Otherwise normal ECG-No previous ECGs available- Performing Organization Address City/[facility] [place] Phone Number [facility] MUSE [address] [place] [address] Urine culture (06/03/2018 3:20 PM) Urine culture SEE COMMENTComment: Bacteriuria [facility] DEPARTMENT OF PATHOLOGY screen negative. AND GENOMIC MEDICINE Performing Organization Address City/[facility] [place] Phone Number [facility] DEPARTMENT OF PATHOLOGY AND [address] [place], [place] [phone] [place] [address] Urinalysis screen and microscopy, with reflex to culture (06/03/2018 3:15 PM) Specimen site Clean catch [facility] DEPARTMENT OF PATHOLOGY AND GENOMIC MEDICINE Color, UA Straw [facility] DEPARTMENT OF PATHOLOGY AND GENOMIC MEDICINE Appearance, UA Clear [facility] DEPARTMENT OF PATHOLOGY AND GENOMIC MEDICINE Specific gravity, UA 1.014 1.001 - 1.035 [facility] DEPARTMENT OF PATHOLOGY AND GENOMIC MEDICINE pH, UA 5.0 5.0 - 8.5 [facility] DEPARTMENT OF PATHOLOGY AND GENOMIC MEDICINE Protein, UA Negative Negative [facility] DEPARTMENT OF PATHOLOGY AND GENOMIC MEDICINE Glucose, UA Negative Negative [facility] DEPARTMENT OF PATHOLOGY AND GENOMIC MEDICINE Ketones, UA Negative Negative [facility] DEPARTMENT OF PATHOLOGY AND GENOMIC MEDICINE Bilirubin, UA Negative Negative [facility] DEPARTMENT OF PATHOLOGY AND GENOMIC MEDICINE Blood, UA Negative Negative [facility] DEPARTMENT OF PATHOLOGY AND GENOMIC MEDICINE Nitrite, UA Negative Negative [facility] DEPARTMENT OF PATHOLOGY AND GENOMIC MEDICINE Urobilinogen, UA <2.0 <2.0 [facility] DEPARTMENT OF PATHOLOGY AND GENOMIC MEDICINE Leukocyte esterase, UA Negative Negative [facility] DEPARTMENT OF PATHOLOGY AND GENOMIC MEDICINE WBC, UA <1 0 - 1 /HPF [facility] DEPARTMENT OF PATHOLOGY AND GENOMIC MEDICINE RBC, UA 2 0 - 5 /HPF [facility] DEPARTMENT OF PATHOLOGY AND GENOMIC MEDICINE Bacteria, UA Few None seen [facility] DEPARTMENT OF PATHOLOGY AND GENOMIC MEDICINE Yeast, UA None seen [facility] DEPARTMENT OF PATHOLOGY AND GENOMIC MEDICINE Yeast with pseudohyphae, UA None seen [facility] DEPARTMENT OF PATHOLOGY AND GENOMIC MEDICINE Specimen Urine Performing Organization Address City/[facility]/Zipcode Phone Number [facility] DEPARTMENT OF PATHOLOGY AND [address] [place] [address] [facility] Estimated GFR (06/03/2018 3:15 PM) Estimated GFR 35 (A) mL/min/1.73 m2 [facility] DEPARTMENT OF Comment: PATHOLOGY AND GENOMIC CatergoryUnitsInterpretation MEDICINE G1 >=90 Normal or high G2 60-89Mildly decreased [id number] to moderately decreased [id number] to severely decreased G4 15-29Severely decreased G5 <15Kidney failure The eGFR was calculated using the Chronic Kidney Disease Epidemiology Collaboration (CKD-EPI) equation. Interpretation is based on recommendations of the National Kidney Foundation-Kidney Disease Outcomes Quality Initiative (NKF-KDOQI) published in 2014. Specimen Plasma specimen Performing Organization Address City/[facility]/Zipcode Phone Number [facility] DEPARTMENT OF PATHOLOGY AND [address] [place] [address] CBC hemogram (06/03/2018 3:15 PM) WBC 7.89 4.50 - 11.00 k/uL [facility] DEPARTMENT OF PATHOLOGY AND GENOMIC MEDICINE RBC 4.11 (L) 4.40 - 6.00 m/uL [facility] DEPARTMENT OF PATHOLOGY AND GENOMIC MEDICINE HGB 12.4 (L) 14.0 - 18.0 g/dL [facility] DEPARTMENT OF PATHOLOGY AND GENOMIC MEDICINE HCT 39.1 (L) 41.0 - 51.0 % [facility] DEPARTMENT OF PATHOLOGY AND GENOMIC MEDICINE MCV 95.1 82.0 - 100.0 fL [facility] DEPARTMENT OF PATHOLOGY AND GENOMIC MEDICINE MCH 30.2 27.0 - 34.0 pg [facility] DEPARTMENT OF PATHOLOGY AND GENOMIC MEDICINE MCHC 31.7 31.0 - 37.0 g/dL [facility] DEPARTMENT OF PATHOLOGY AND GENOMIC MEDICINE RDW - SD 44.6 37.0 - 55.0 fL [facility] DEPARTMENT OF PATHOLOGY AND GENOMIC MEDICINE MPV 11.1 8.8 - 13.2 fL [facility] DEPARTMENT OF PATHOLOGY AND GENOMIC MEDICINE Platelet count 232 150 - 400 k/uL [facility] DEPARTMENT OF PATHOLOGY AND GENOMIC MEDICINE Nucleated RBC 0.00 /100 WBC [facility] DEPARTMENT OF PATHOLOGY AND GENOMIC MEDICINE Specimen Blood Performing Organization Address City/[facility] [place] Phone Number [facility] DEPARTMENT OF PATHOLOGY AND [address] [place] [address] GENOMIC MEDICINE Type and screen (06/03/2018 3:15 PM) ABO grouping O [facility] DEPARTMENT OF PATHOLOGY AND GENOMIC MEDICINE Rh type POS [facility] DEPARTMENT OF PATHOLOGY AND GENOMIC MEDICINE Antibody screen (gel) NEG [facility] DEPARTMENT OF PATHOLOGY AND GENOMIC MEDICINE Specimen Blood Performing Organization Address City/[facility] [place] Phone Number [facility] DEPARTMENT OF PATHOLOGY AND [address] [place] [phone] [employer] [facility] Basic metabolic panel (06/03/2018 3:15 PM) Sodium 141 135 - 148 mEq/L [facility] DEPARTMENT OF PATHOLOGY AND GENOMIC MEDICINE Potassium 5.1 (H) 3.5 - 5.0 mEq/L [facility] DEPARTMENT OF PATHOLOGY AND GENOMIC MEDICINE Chloride 101 98 - 112 mEq/L [facility] DEPARTMENT OF PATHOLOGY AND GENOMIC MEDICINE CO2 24 24 - 31 mEq/L [facility] DEPARTMENT OF PATHOLOGY AND GENOMIC MEDICINE Anion gap 16@ANIO (H) 7 - 15 mEq/L [facility] DEPARTMENT OF PATHOLOGY AND GENOMIC MEDICINE BUN 29 (H) 8 - 23 mg/dL [facility] DEPARTMENT OF PATHOLOGY AND GENOMIC MEDICINE Creatinine 1.79 (H) 0.70 - 1.20 mg/dL [facility] DEPARTMENT OF PATHOLOGY AND GENOMIC MEDICINE Glucose 80 65 - 99 mg/dL [facility] DEPARTMENT OF PATHOLOGY AND GENOMIC MEDICINE Calcium 9.8 8.8 - 10.2 mg/dL [facility] DEPARTMENT OF PATHOLOGY AND GENOMIC MEDICINE Specimen Plasma specimen Performing Organization Address City/State/[facility] [place] Phone Number [facility] DEPARTMENT OF PATHOLOGY AND [address] [place] [address] [employer] [facility] after 06/13/2017 Insurance Payer Benefit Plan / Group Subscriber ID Type Phone Address MEDICARE MEDICARE PART A AND B xxxxxxxxxx Medicare [place], [place] AARP AARP SUPPLEMENT xxxxxxxxxxx Commercial Home: [phone] [place], [place] [phone]
--- NOTE | 2018-06-14 02:06 | EDPHYS ---
Physician Documentation [facility] Name: Jax Bojorquez Age: 82 yrs Sex: Male : 1935 Arrival Date: 06/14/2018 Time: 00:26 Bed 7 Private MD: Ross Jesus HPI: 06/14 01:00 This 82 yrs old Male presents to ER via Ambulatory with complaints of Problem cp With Urinary Catheter. 01:00 The patient presents with a Lezama catheter problem, is not draining. cp 01:00 Onset: The symptoms/episode began/occurred today. cp Historical: - Allergies: 01:17 No Known Allergies; fc - Home Meds: 01:17 acetaminophen-codeine 300-30 mg Oral tab 1 tab every 6 hours [Active]; bicalutamide 50 fc mg Oral tab 1 tab once daily [Active]; Colace 100 mg Oral cap 1 cap 2 times per day [Active]; losartan 25 mg Oral tab 1 tab once daily [Active]; Lumigan 0.01 % ophthalmic drop daily [Active]; pravastatin 40 mg Oral tab 1 tab once daily [Active]; Proscar 5 mg Oral tab 1 tab once daily [Active]; tamsulosin 0.4 mg Oral cp24 1 cap once daily [Active]; Ustell 120-0.12 mg Oral cap daily [Active]; - PMHx: 01:17 High Cholesterol; Hypertension; BPH; fc - PSHx: 01:17 Prostate surgery (06/08/18); fc - Immunization history:: Last tetanus immunization: unknown, Pneumococcal vaccine is up to date, Flu vaccine is not up to date. - Social history:: Smoking status: Patient/guardian denies using tobacco. - Ebola Screening: : Patient negative for fever greater than or equal to 101.5 degrees Fahrenheit, and additional compatible Ebola Virus Disease symptoms Patient denies exposure to infectious person Patient denies travel to an Ebola-affected area in the 21 days before illness onset. ROS: 01:05 : Positive for lezama that is not draining. cp 01:05 Constitutional: Negative for body aches, chills, fever, poor PO intake. cp 01:05 Cardiovascular: Negative for chest pain, edema. 01:05 Respiratory: Negative for cough, shortness of breath, wheezing. 01:05 Abdomen/GI: Negative for abdominal pain, nausea, vomiting, and diarrhea, abdominal distension, anorexia, black/tarry stool, rectal bleeding. 01:05 Skin: Negative for cellulitis, rash. 01:05 Neuro: Negative for altered mental status, weakness. 01:05 All other systems are negative. Exam: 01:12 Constitutional: The patient appears in no acute distress, alert, awake, cp non-diaphoretic, non-toxic, well developed, well nourished. 01:12 Head/Face: Normocephalic, atraumatic. cp 01:12 Eyes: Periorbital structures: appear normal, Conjunctiva: normal, no exudate, no injection, Sclera: no appreciated abnormality, Lids and lashes: appear normal, bilaterally. 01:12 ENT: External ear(s): are unremarkable, Nose: is normal, Mouth: Lips: moist, Oral mucosa: moist. 01:12 Chest/axilla: Inspection: normal, Palpation: is normal, no crepitus, no tenderness. 01:12 Cardiovascular: Rate: normal, Rhythm: regular, Edema: is not appreciated, JVD: is not appreciated. 01:12 Respiratory: the patient does not display signs of respiratory distress, Respirations: normal, no use of accessory muscles, no retractions, no splinting, no tachypnea, labored breathing, is not present, Breath sounds: are clear throughout, no decreased breath sounds, no stridor, no wheezing. 01:12 Abdomen/GI: Inspection: obese Bowel sounds: active, all quadrants, Palpation: abdomen is soft and non-tender, in all quadrants, rebound tenderness, is not appreciated, voluntary guarding, is not appreciated, involuntary guarding, is not appreciated. 01:12 Back: CVA tenderness, is absent. 01:12 : Male external genitalia: erythema, is absent, a lezama is noted. 01:12 Skin: cellulitis, is not appreciated, no rash present. 01:12 Neuro: Orientation: to person, place \T\ time. Mentation: lucid, able to follow commands, Cerebellar function: is grossly normal, Motor: moves all fours, strength is normal, Sensation: is normal. Vital Signs: 00:40 BP 138 / 76; Pulse 64; Resp 18; Temp 98.3(O); Pulse Ox 96% on R/A; Weight 129.27 kg fc (R); Height 5 ft. 11 in. (180.34 cm) (R); Pain 0/10; 02:12 BP 131 / 66; Pulse 66; Resp 20; Temp 98.2(O); Pulse Ox 98% on R/A; Pain 0/10; fc 00:40 Body Mass Index 39.75 (129.27 kg, 180.34 cm) MDM: 00:53 Patient medically screened. cp 01:00 Differential diagnosis: UTI, Lezama catheter problem, prostatitis, urethritis. cp 02:05 Data reviewed: vital signs, nurses notes, and as a result, I will discharge patient. cp 06/14 00:57 Order name: Bladder Scanner: pre and post void; Complete Time: 01:58 cp Administered Medications: No medications were administered Disposition: 02:15 Chart complete. cp 07:20 Co-signature as Attending Physician, Ross Kinsey MD I agree with the assessment and mega plan of care. Disposition: 06/14/18 02:05 Discharged to Home. Impression: Encounter for fitting and adjustment of non-vascular catheter - Lezama. - Condition is Stable. - Discharge Instructions: Lezama Catheter Care, Adult. - Medication Reconciliation Form, Thank You Letter, Antibiotic Education, Prescription Opioid Use form. - Follow up: Kym Buenrostro MD; When: 1 - 2 days; Reason: Recheck today's complaints. - Problem is an ongoing problem. - Symptoms are resolved. Signatures: Ross Kinsey MD MD cha Chretien, Felicia RN RN Ross Burks PA PA cp Corrections: (The following items were deleted from the chart) 02:13 02:05 06/14/2018 02:05 Discharged to Home. Impression: Encounter for fitting and fc adjustment of non-vascular catheter - Lezama. Condition is Stable. Forms are Medication Reconciliation Form, Thank You Letter, Antibiotic Education, Prescription Opioid Use. Follow up: Kym Buenrostro; When: 1 - 2 days; Reason: Recheck today's complaints. Problem is an ongoing problem. Symptoms are resolved. cp
--- NOTE | 2018-06-14 02:06 | ER ---
Nurse's Notes [facility] Name: Jax Bojorquez Age: 82 yrs Sex: Male : 1935 Arrival Date: 06/14/2018 Time: 00:26 Bed 7 Private MD: Diagnosis: Encounter for fitting and adjustment of non-vascular catheter-Lezama Presentation: 06/14 00:40 Presenting complaint: Patient states: that his lezama cath is plugged and he needs it fc irrigated. Transition of care: patient was not received from another setting of care. Onset of symptoms was June 14, 2018. Risk Assessment: Do you want to hurt yourself or someone else? Patient reports no desire to harm self or others. Initial Sepsis Screen: Does the patient meet any 2 criteria? Yes Does the patient have a suspected source of infection? No. Patient's initial sepsis screen is negative. Care prior to arrival: None. 00:40 Method Of Arrival: Ambulatory fc 00:40 Acuity: JASMEET 4 fc Triage Assessment: 00:40 General: Appears uncomfortable, well groomed, Behavior is calm, cooperative, fc appropriate for age. Pain: Denies pain. EENT: No deficits noted. Neuro: Level of Consciousness is awake, alert, obeys commands, Oriented to person, place, time, situation. Cardiovascular: No deficits noted. Respiratory: No deficits noted. GI: No deficits noted. : Reports burning with urination, inability to void. Derm: Skin is pink, warm \T\ dry. Musculoskeletal: Circulation, motion, and sensation intact. Capillary refill < 3 seconds, Range of motion: intact in all extremities. Historical: - Allergies: 01:17 No Known Allergies; fc - Home Meds: 01:17 acetaminophen-codeine 300-30 mg Oral tab 1 tab every 6 hours [Active]; bicalutamide 50 fc mg Oral tab 1 tab once daily [Active]; Colace 100 mg Oral cap 1 cap 2 times per day [Active]; losartan 25 mg Oral tab 1 tab once daily [Active]; Lumigan 0.01 % ophthalmic drop daily [Active]; pravastatin 40 mg Oral tab 1 tab once daily [Active]; Proscar 5 mg Oral tab 1 tab once daily [Active]; tamsulosin 0.4 mg Oral cp24 1 cap once daily [Active]; Ustell 120-0.12 mg Oral cap daily [Active]; - PMHx: 01:17 High Cholesterol; Hypertension; BPH; fc - PSHx: 01:17 Prostate surgery (06/08/18); fc - Immunization history:: Last tetanus immunization: unknown, Pneumococcal vaccine is up to date, Flu vaccine is not up to date. - Social history:: Smoking status: Patient/guardian denies using tobacco. - Ebola Screening: : Patient negative for fever greater than or equal to 101.5 degrees Fahrenheit, and additional compatible Ebola Virus Disease symptoms Patient denies exposure to infectious person Patient denies travel to an Ebola-affected area in the 21 days before illness onset. Screenin:40 Abuse screen: Denies threats or abuse. Nutritional screening: No deficits noted. fc Tuberculosis screening: No symptoms or risk factors identified. Fall Risk None identified. Assessment: 01:18 Reassessment: No changes from previously documented assessment. Patient and/or family fc updated on plan of care and expected duration. Pain level reassessed. Patient is alert, oriented x 3, equal unlabored respirations, skin warm/dry/pink. See triage assessment. 01:58 Reassessment: Lezama irrigated with 40 ml of NS. fc 02:04 Reassessment: educated on bladder irrigation and how to only put 20 ml of NS at a fc time. If there was pain or no urine follow after 2 times pt must come to ER for evaluation. She is requesting to do this at home. Discussed with Kimmie FITCH and he states that she can do this if she feels comfortable and knows how. Vital Signs: 00:40 BP 138 / 76; Pulse 64; Resp 18; Temp 98.3(O); Pulse Ox 96% on R/A; Weight 129.27 kg fc (R); Height 5 ft. 11 in. (180.34 cm) (R); Pain 0/10; 02:12 BP 131 / 66; Pulse 66; Resp 20; Temp 98.2(O); Pulse Ox 98% on R/A; Pain 0/10; fc 00:40 Body Mass Index 39.75 (129.27 kg, 180.34 cm) ED Course: 00:26 Patient arrived in ED. ag3 00:40 Arm band placed on Patient placed in an exam room, on a stretcher. fc 00:40 Patient has correct armband on for positive identification. Placed in gown. Bed in low fc position. Call light in reach. Side rails up X 1. Pulse ox on. NIBP on. 00:40 No provider procedures requiring assistance completed. fc 00:53 Ross Burks PA is PHCP. cp 00:53 Ross Kinsey MD is Attending Physician. cp 01:10 Bladder scan completed. pre 391 ml. fc 01:13 Triage completed. fc 01:58 Bladder scan completed. post 0 ml. fc 02:04 Kym Buenrostro MD is Referral Physician. cp 02:12 Patient did not have IV access during this emergency room visit. fc Administered Medications: No medications were administered Outcome: 02:05 Discharge ordered by MD. cp 02:11 Discharged to home ambulatory, with family. fc 02:11 Condition: good 02:11 Discharge instructions given to patient, family, Instructed on discharge instructions, follow up and referral plans. bladder irrigation Demonstrated understanding of instructions, follow-up care, bladder irrigation Prescriptions given X none 02:13 Patient left the ED. fc Signatures: Shantell Lindquist RN RN Ross Burks PA PA cp Kiersten Portillo ag3
[2018-06-14 02:19] VITALS: BP 131/66; TEMP 98.2; O2SAT 98
== END 2018-06-14 02:13 | disposition home or self-care (01) ==
LOC: ER 00:24
DX: Z46.82 Encounter for fitting and adjustment of non-vascular catheter (principal); I10 Essential (primary) hypertension; E78.00 Pure hypercholesterolemia, unspecified; N40.0 Benign prostatic hyperplasia without lower urinary tract symptoms
CPT/HCPCS: 99283

== ENCOUNTER 2018-10-17 12:38 | Inpatient (IN) | payer OTHER, MEDICARE ==
--- OUTSIDE RECORDS SUMMARY | 2018-10-17 12:40 | XMS REPORT | Clinical Summary ---
:1935 Author Organization [facility] Address [address] [place] [address] Care Team Providers Name Role Phone Asked, No Pcp Primary Care Provider Unavailable Allergies No Known Allergies Medications Medication Sig Dispensed Refills Start Date End Date Status losartan (COZAAR) 25 every morning. 0 Active MG tablet pravastatin nightly. 0 Active (PRAVACHOL) 40 MG tablet tamsulosin (FLOMAX) nightly. 0 Active 0.4 mg capsule finasteride (PROSCAR) every evening. 0 Active 5 mg tablet bimatoprost (LUMIGAN) nightly. 0 Active 0.01 % ophthalmic drops multivit-min/FA/lycop Take by mouth. 0 Active en/lutein (CENTRUM SILVER MEN ORAL) ciprofloxacin (CIPRO) Cipro 500 mg tablet 0 Active 500 MG tablet take one tablet by mouth twice daily starting 2 days prior to surgery and continue after surgery docusate sodium Take 1 capsule 60 capsule 0 06/09/2018 07/09/2018 (COLACE) 100 MG (100 mg total) capsule by mouth 2 (two) times a day for 30 days. ciprofloxacin (CIPRO) Take 1 tablet 8 tablet 0 06/09/2018 06/13/2018 500 MG tablet (500 mg total) by mouth 2 (two) times a day for 4 days. acetaminophen-codeine Take 1 tablet 30 tablet 0 06/09/2018 06/19/2018 (TYLENOL WITH CODEINE by mouth every #3) 300-30 mg per 6 (six) hours tablet as needed for moderate pain for up to 10 days. bicalutamide Take 1 tablet 30 tablet 0 06/09/2018 07/09/2018 (CASODEX) 50 mg chemo (50 mg total) tablet by mouth daily for 30 days. Active Problems Problem Noted Date Benign localized hyperplasia of prostate with urinary obstruction 06/08/2018 Encounters Date Type Specialty Care Team Description 09/16/2018 Hospital Encounter Radiology Daisha Amaya Malignant neoplasm of prostate (HCC); MD Stef Anal pain 09/10/2018 Transcribe Orders Access Rach Amayalopez Malignant neoplasm of prostate (HCC) (Primary Dx); MD Stef Anal pain 06/09/2018 Patient Outreach Quality Ana Wallace RN 06/08/2018 Surgery Urology [facility], CYSTOSCOPY, WITH Alverto Bang MD TRANSURETHERAL RESECTION OF PROSTATE 06/08/2018 Anesthesia Event Urology Chuck Oquendo DO 06/08/2018 - Hospital Encounter General Internal [facility], Benign localized 06/09/2018 Medicine Alverto Bang MD hyperplasia of prostate with urinary obstruction 06/03/2018 Pre-Admit Testing Pre-Admission [facility], Pre-op testing Appointment Testing Alverto Bang MD (Primary Dx) after 10/16/2017 Social History Tobacco Use Types Packs/Day Years Used Date Former Smoker Cigarettes 3 Quit: 06/03/1963 Smokeless Tobacco: Never Used Alcohol Use Drinks/Week oz/Week Comments Yes social Sex Assigned at Date Recorded Not on file Job Start Date Occupation Industry Not on file Not on file Not on file Travel History Travel Start Travel End No recent travel history available. Last Filed Vital Signs Vital Sign Reading Time Taken Blood Pressure 145/79 09/16/2018 3:47 PM [employer] Pulse 73 09/16/2018 3:47 PM [employer] Temperature 35.4 C (95.8 F) 06/09/2018 11:19 AM CDT Respiratory Rate 24 06/09/2018 11:19 AM CDT Oxygen Saturation 97% 06/09/2018 11:19 AM CDT Inhaled Oxygen Concentration - - Weight 83.9 kg (185 lb) 09/16/2018 3:47 PM [employer] Height 180.3 cm (5' 11") 06/08/2018 11:54 AM CDT Body Mass Index 25.8 09/16/2018 3:47 PM [employer] Plan of Treatment Health Maintenance Due Date Last Done Comments SHINGLES VACCINES (1 of 2) 1987 PNEUMOCOCCAL POLYSACCHARIDE VACCINE AGE 65 AND OVER 2002 PNEUMOCOCCAL-13 2002 INFLUENZA VACCINE 04/15/2018 Procedures Procedure Name Priority Date/Time Associated Comments Diagnosis MRI PROSTATE WWO Routine 09/16/2018 5:36 Malignant neoplasm Results for this CONTRAST PM [employer] of prostate (HCC) procedure are in Anal pain the results section. ESTIMATED GFR Routine 09/16/2018 3:55 Results for this PM [employer] procedure are in the results section. POC CREATININE Routine 09/16/2018 3:55 Results for this PM [employer] procedure are in the results section. NM BONE SCAN WHOLE STAT 06/09/2018 1:47 Results for this BODY PM CDT procedure are in the results section. AK AN ELECTIVE Routine 06/08/2018 2:14 SUPRAGLOTTIC AIRWAY [...] procedure are in the results section. after 10/16/2017 Results MRI Prostate Wwo Contrast (09/16/2018 5:36 PM [employer]) Narrative Performed At EXAMINATION:MRI PROSTATE WWO CONTRAST RADIANT CLINICAL HISTORY:C61 Malignant neoplasm of prostate, K62.89 Other specified diseases of anus and rectum, c61 COMPARISON:None. TECHNIQUE: Using a pelvic phased array surface coil, multiplanar, multisequence MRI of the pelvis was performed with a prostate-specific protocol with and without contrast.. Diffusion weighted images an d dynamic contrast enhanced images were performed. The image quality is satisfactory. IMPRESSION: The prostate is diffusely low in T2 signal, with reduced ADC value throughout in keeping with diffuse tumor. There is gross extracapsular extension along the right, where there is extra prostatic tumor encasing the right aspect of the prostate gland spanning approximately 4.8 x 3.4 cm in the transverse plane, and 5.5 cm craniocaudal. This tumor extends posteriorly where there is extension through the mesorectal fascia and invasion of the anterior anus near the anorectal junction with effacement of the internal sphincter complex. The mass abuts and invades the right levator anus (series 7 image 12), and there is bowing and thinning of the puborectalis sling as well. Bilateral seminal vesicle invasion is present. Extensive osseous metastasis in the pelvis. There is metastatic mesorectal/superior rectal adenopathy measuring up to 10 mm. The urinary bladder is unremarkable. There is sigmoid diverticulosis without acute diverticulitis. [facility]-[id number] Procedure Note Interface, Radiology Results Incoming - 09/16/2018 6:52 PM [employer] EXAMINATION: MRI PROSTATE WWO CONTRAST CLINICAL HISTORY: C61 Malignant neoplasm of prostate, K62.89 Other specified diseases of anus and rectum, c61 COMPARISON: None. TECHNIQUE: Using a pelvic phased array surface coil, multiplanar, multisequence MRI of the pelvis was performed with a prostate-specific protocol with and without contrast.. Diffusion weighted images and dynamic contrast enhanced images were performed. The image quality is satisfactory. IMPRESSION: The prostate is diffusely low in T2 signal, with reduced ADC value throughout in keeping with diffuse tumor. There is gross extracapsular extension along the right, where there is extra prostatic tumor encasing the right aspect of the prostate gland spanning approximately 4.8 x 3.4 cm in the transverse plane, and 5.5 cm craniocaudal. This tumor extends posteriorly where there is extension through the mesorectal fascia and invasion of the anterior anus near the anorectal junction with effacement of the internal sphincter complex. The mass abuts and invades the right levator anus (series 7 image 12), and there is bowing and thinning of the puborectalis sling as well. Bilateral seminal vesicle invasion is present. Extensive osseous metastasis in the pelvis. There is metastatic mesorectal/superior rectal adenopathy measuring up to 10 mm. The urinary bladder is unremarkable. There is sigmoid diverticulosis without acute diverticulitis. [facility]-[id number] Performing Organization Address [facility]/Zipcode Phone Number [facility] [address] [place] [phone] Estimated GFR (09/16/2018 3:55 PM [employer])Only the most recent of2 resultswithin the time period is included. Estimated GFR 51 (A) mL/min/1.73 m2 [facility] Comment: HOSPITAL CatergoryUnitsInterpretation G1 >=90 Normal or high G2 60-89Mildly decreased [id number] to moderately decreased G3f84-14Wmnieipbkm to severely decreased G4 15-29Severely decreased G5 <15Kidney failure The eGFR was calculated using the Chronic Kidney Disease Epidemiology Collaboration (CKD-EPI) equation. Interpretation is based on recommendations of the National Kidney Foundation-Kidney Disease Outcomes Quality Initiative (NKF-KDOQI) published in 2014. Specimen Blood Performing Organization Address [facility] Phone Number [facility] DEPARTMENT OF PATHOLOGY AND [address] [place] [phone] [address] POC creatinine (09/16/2018 3:55 PM [employer]) POC creatinine 1.3 (H) 0.7 - 1.2 mg/dl [facility] Comment: Meter ID: [id number] Linen Controller: Tim Briscoe Specimen Blood Performing Organization Address [facility]/Zipcode Phone Number [facility] DEPARTMENT OF PATHOLOGY AND [address] [place] [phone] [facility] [address] [place] [address] NM Bone Scan Whole Body (06/09/2018 1:47 PM CDT) Narrative Performed At PROCEDURE:NM BONE SCAN WHOLE [facility] CLINICAL HISTORY:prostate cancermets COMPARISON:No prior bone scans or other images available. TECHNIQUE: The patient was injected with 25 millicuries of [id number] intravenously, followed 3 hours later by whole-body [...] IMPRESSION: Numerous sites of osseous metastatic disease. [facility]-[id number] Procedure Note Interface, Radiology Results Incoming - 06/09/2018 1:58 PM CDT PROCEDURE: NM BONE SCAN WHOLE BODY CLINICAL HISTORY: prostate cancer mets COMPARISON: No prior bone scans or other images available. TECHNIQUE: The patient was injected with 25 millicuries of [id number] intravenously, followed 3 hours later by whole-body [...] IMPRESSION: Numerous sites of osseous metastatic disease. [facility]-[id number] Performing Organization Address City/State/Zipcode Phone Number [facility] [address] [place] [phone] Surgical pathology request (06/08/2018 7:51 AM CDT) [facility] DEPARTMENT OF PATHOLOGY AND GENOMIC MEDICINE Surgical pathology report See link below for PDF [facility] DEPARTMENT OF Lab Report PATHOLOGY AND GENOMIC MEDICINE Result status This is Final Report [facility] DEPARTMENT OF for [id number] PATHOLOGY AND GENOMIC MEDICINE Performing Organization Address City/[facility]/Zipcode Phone Number [facility] DEPARTMENT OF PATHOLOGY AND [address] [place] [phone] GENOMIC MEDICINE ECG Pre/Post Op (06/03/2018 3:32 PM CDT) Ventricular rate 67 [facility] MUSE Atrial rate 67 [facility] MUSE AK interval 140 [facility] M[facility] QRSD interval 74 [facility] M[facility] QT interval 388 [facility] QTC interval 409 [facility] MUSE P axis 1 12 [facility]USE QRS axis 1 0 [facility] MUSE T wave axis 71 [facility] MUSE EKG impression Sinus rhythm with marked sinus arrhythmia [facility] MUSE with occasional premature ventricular complexes-Otherwise normal ECG-No previous ECGs available- Performing Organization Address City/[facility] Phone Number [facility] MUSE [address] [place] [phone] Urine culture (06/03/2018 3:20 PM CDT) Urine culture SEE COMMENTComment: Bacteriuria [facility] DEPARTMENT OF PATHOLOGY screen negative. AND GENOMIC MEDICINE Performing Organization Address [facility] Clinic[facility] Phone Number [facility] DEPARTMENT OF PATHOLOGY AND [address] [place] [phone] GENOMIC MEDICINE Urinalysis screen and microscopy, with reflex to culture (06/03/2018 3:15 PM CDT) Specimen site Clean catch [facility] DEPARTMENT OF PATHOLOGY AND GENOMIC MEDICINE Color, UA Straw [facility] DEPARTMENT OF PATHOLOGY AND GENOMIC MEDICINE Appearance, UA Clear [facility] DEPARTMENT OF PATHOLOGY AND GENOMIC MEDICINE Specific gravity, UA 1.014 1.001 - 1.035 [facility] DEPARTMENT OF PATHOLOGY AND GENOMIC MEDICINE pH, UA 5.0 5.0 - 8.5 [facility] DEPARTMENT OF PATHOLOGY AND GENOMIC MEDICINE Protein, UA Negative Negative [facility] DEPARTMENT OF PATHOLOGY AND GENOMIC MEDICINE Glucose, UA Negative Negative [facility] DEPARTMENT OF PATHOLOGY AND GENOMIC MEDICINE Ketones, UA Negative Negative [facility] DEPARTMENT OF PATHOLOGY AND GENOMIC MEDICINE Bilirubin, UA Negative Negative [facility] DEPARTMENT OF PATHOLOGY AND GENOMIC MEDICINE Blood, UA Negative Negative [facility] DEPARTMENT OF PATHOLOGY AND GENOMIC MEDICINE Nitrite, UA Negative Negative [facility] DEPARTMENT OF PATHOLOGY AND GENOMIC MEDICINE Urobilinogen, UA <2.0 <2.0 [facility] DEPARTMENT OF PATHOLOGY AND GENOMIC MEDICINE Leukocyte esterase, UA Negative Negative [facility] DEPARTMENT OF PATHOLOGY AND GENOMIC MEDICINE WBC, UA <1 0 - 1 /HPF [facility] DEPARTMENT OF PATHOLOGY AND GENOMIC MEDICINE RBC, UA 2 0 - 5 /HPF [facility] DEPARTMENT OF PATHOLOGY AND GENOMIC MEDICINE Bacteria, UA Few None seen [facility] DEPARTMENT OF PATHOLOGY AND GENOMIC MEDICINE Yeast, UA None seen [facility] DEPARTMENT OF PATHOLOGY AND GENOMIC MEDICINE Yeast with pseudohyphae, UA None seen [facility] DEPARTMENT OF PATHOLOGY AND GENOMIC MEDICINE Specimen Urine Performing Organization Address City/[facility]/Zipcode Phone Number [facility] DEPARTMENT OF PATHOLOGY AND [address] [place], [place] [id number] [facility] CBC hemogram (06/03/2018 3:15 PM CDT) WBC 7.89 4.50 - 11.00 k/uL [facility] DEPARTMENT OF PATHOLOGY AND GENOMIC MEDICINE RBC 4.11 (L) 4.40 - 6.00 m/uL [facility] DEPARTMENT OF PATHOLOGY AND GENOMIC MEDICINE HGB 12.4 (L) 14.0 - 18.0 g/dL [facility] DEPARTMENT OF PATHOLOGY AND GENOMIC MEDICINE HCT 39.1 (L) 41.0 - 51.0 % [facility] DEPARTMENT OF PATHOLOGY AND GENOMIC MEDICINE MCV 95.1 82.0 - 100.0 fL [facility] DEPARTMENT OF PATHOLOGY AND GENOMIC MEDICINE MCH 30.2 27.0 - 34.0 pg [facility] DEPARTMENT OF PATHOLOGY AND GENOMIC MEDICINE MCHC 31.7 31.0 - 37.0 g/dL [facility] DEPARTMENT OF PATHOLOGY AND GENOMIC MEDICINE RDW - SD 44.6 37.0 - 55.0 fL [facility] DEPARTMENT OF PATHOLOGY AND GENOMIC MEDICINE MPV 11.1 8.8 - 13.2 fL [facility] DEPARTMENT OF PATHOLOGY AND GENOMIC MEDICINE Platelet count 232 150 - 400 k/uL [facility] DEPARTMENT OF PATHOLOGY AND GENOMIC MEDICINE Nucleated RBC 0.00 /100 WBC [facility] DEPARTMENT OF PATHOLOGY AND GENOMIC MEDICINE Specimen Blood Performing Organization Address City/[facility] Phone Number [facility] DEPARTMENT OF PATHOLOGY AND [address] [place] [phone] GENOMIC MEDICINE Type and screen (06/03/2018 3:15 PM CDT) ABO grouping O [facility] DEPARTMENT OF PATHOLOGY AND GENOMIC MEDICINE Rh type POS [facility] DEPARTMENT OF PATHOLOGY AND GENOMIC MEDICINE Antibody screen (gel) NEG [facility] DEPARTMENT OF PATHOLOGY AND GENOMIC MEDICINE Specimen Blood Performing Organization Address City/[facility]/Zipcode Phone Number [facility] DEPARTMENT OF PATHOLOGY AND [address] [place] [phone] GENOMIC MEDICINE Basic metabolic panel (06/03/2018 3:15 PM CDT) Sodium 141 135 - 148 mEq/L [facility] DEPARTMENT OF PATHOLOGY AND GENOMIC MEDICINE Potassium 5.1 (H) 3.5 - 5.0 mEq/L [facility] DEPARTMENT OF PATHOLOGY AND GENOMIC MEDICINE Chloride 101 98 - 112 mEq/L [facility] DEPARTMENT OF PATHOLOGY AND GENOMIC MEDICINE CO2 24 24 - 31 mEq/L [facility] DEPARTMENT OF PATHOLOGY AND GENOMIC MEDICINE Anion gap 16@ANIO (H) 7 - 15 mEq/L [facility] DEPARTMENT OF PATHOLOGY AND GENOMIC MEDICINE BUN 29 (H) 8 - 23 mg/dL [facility] DEPARTMENT OF PATHOLOGY AND GENOMIC MEDICINE Creatinine 1.79 (H) 0.70 - 1.20 mg/dL [facility] DEPARTMENT OF PATHOLOGY AND GENOMIC MEDICINE Glucose 80 65 - 99 mg/dL [facility] DEPARTMENT OF PATHOLOGY AND GENOMIC MEDICINE Calcium 9.8 8.8 - 10.2 mg/dL [facility] DEPARTMENT OF PATHOLOGY AND GENOMIC MEDICINE Specimen Plasma specimen Performing Organization Address City/State/Zipcode Phone Number [facility] DEPARTMENT OF PATHOLOGY AND [address] [place] [address] [employer] MEDICINE after 10/16/2017 Insurance Payer Benefit Plan / Group Subscriber ID Type Phone Address MEDICARE MEDICARE PART A AND B xxxxxxxxxxx [place], [place] AARP AARP SUPPLEMENT xxxxxxxxxxx Commercial Advance Directives Patient has advance care planning documents on file. For more information, please contact:Camilo Beltran[address] [place] [address]
[2018-10-17] MEDS ORDERED: NA CHLORIDE 0.9% 2,000 ML ONE (13:06)
[2018-10-17 13:14] LABS: Hematocrit 34.9 % (39.6-49.0); MPV 8.2 fL (7.6-11.3); RBC Red Blood Cell Count 3.77 M/uL (4.33-5.43)
[2018-10-17 13:32] LABS: Albumin 2.4 g/dL (3.4-5.0); Bilirubin Total 1.7 mg/dL (0.2-1.0); Troponin (Emerg Dept Use Only) 0.04 ng/mL (0.0-0.045)
[2018-10-17 13:37] LABS: Potassium 2.9 mmol/L (3.5-5.1)
[2018-10-17] MEDS ORDERED: MAGNESIUM SULFATE 1 gm IVPB 1 GM/100 ML BAG IV ONE (14:01)
[2018-10-17] MEDS ORDERED: DICYCLOMINE HCL 10 MG CAP ONE (14:01)
[2018-10-17] MEDS ORDERED: KCL 20 MEQ/100 mL IVPB 20 MEQ/100 ML BAG IV ONE (14:02)
--- NOTE | 2018-10-17 14:19 | RAD REPORT ---
EXAM DESCRIPTION: RAD - Chest Single View - 10/17/2018 2:03 pm CLINICAL HISTORY: Abdominal pain COMPARISON: May 2018 TECHNIQUE: AP portable chest image was obtained 1307 hours . FINDINGS: Lung volumes are low. Left subclavian Port-A-Cath is in place. No acute lung parenchymal p rocess. No failure or volume overload. Cardiomegaly is present accentuated by the portable exam and s hallow inspiration. Fullness along the right superior mediastinum is a stable finding. Trachea is mid line. Vasculature within normal limits. No measurable pleural effusion and no pneumothorax. No acute bony abnormality seen. No acute aortic findings suspected. IMPRESSION: Tunnel expiration chest film is not substantially different from May 2018. Acute finding not suspected.
[2018-10-17] MEDS ORDERED: VANCOMYCIN 1 GM/250 ML BAG ONE (14:45)
[2018-10-17] MEDS ORDERED: METRONIDAZOLE 500mg IVPB 500 MG/100 ML BAG IV ONE (14:45)
--- NOTE | 2018-10-17 16:23 | RAD REPORT ---
EXAM DESCRIPTION: CT - Abdomen Pelvis Wo Contrast - 10/17/2018 4:01 pm CLINICAL HISTORY: Abdominal pain, history of metastatic prostate carcinoma COMPARISON: CT imaging February 2018 TECHNIQUE: Axial [address] imaging of the abdomen and pelvis was performed without IV contrast. No IV contrast was given because of allergy, abnormal renal function, patient refusal or physician re quest. No oral contrast. All CT scans are performed using dose optimization technique as appropriate and may include automated exposure control or mA/KV adjustment according to patient size. FINDINGS: The 10 millimeter pulmonary nodule is present in the anterior lower left lung field. Prior examination is not quite adequate for comparison. No infiltrate, pneumothorax or pleural effusion. N o pericardial effusion. In segment II left lobe there is a 2.7 centimeter oval poorly demarcated area diminished density. No similar finding back in the February 2018 study. In segment 1 a 12 millimeter round low-density area of d iminished attenuation is seen. There is a 13 millimeter subcapsular hypodensity medial margin in segm ent . In the subcapsular lateral segment V there is a 15 millimeter round low-density mass. None of these were clearly seen on the February 2018 study. Spleen and pancreas show no acute or suspicious findings. Gallbladder and biliary tree are also witho ut suspicious finding. Gallstones can be occult on CT imaging. No hydronephrosis of either kidney. No obstructing or nonobstructing calculi. Patient has bilateral l ow-density masses in both kidneys most likely cysts. In the anterior mid right kidney there is a 2.6 centimeter mass that is isodense to the parenchyma. Solid mass and complex cyst can both have this ap pearance. Patient has a nonspecific, symmetric perinephric stranding pattern. No significant adrenal finding. Isodense renal masses and pyelonephritis cannot be excluded in the absence of IV contrast. The urinary bladder is without significant finding. No gastric dilatation or wall thickening. Proximal small bowel is unremarkable. The majority of the i leum shows a very prominent circumferential wall thickening and edema. There is stranding in the kathe cent fat. No focal mass lesions seen. Distal few cm of the terminal ileum are uninvolved. No acute co judy finding. The patient has sigmoid diverticulosis without acute diverticulitis. No mass or bulky ly mphadenopathy. No omental thickening. Patient has small fat only umbilical hernia and bilateral fat f illed inguinal hernias, larger on the left. Disc and bony degenerative changes are present. Multiple sclerotic or blastic areas are present in th e pelvis and spine. These are new from the prior examination. There is significant bone loss to the T 11 body. No overall loss in height in T11. IMPRESSION: Very prominent ileitis pattern involving majority of the ileum. Jejunum and colon are sp ared. No obstruction, free air or surgically emergent finding. Multiple new bony metastatic lesions since the February 2018 study. There is significant bone loss to the T11 body but no overall loss in height at this time. Multiple low-density lesions in the liver new from February 2018. These are most likely metastatic lesion s. A 10 millimeter pulmonary nodule anterior left lung base likely metastatic as well. A 2.6 centimeter isodense mass anterior mid right kidney is present in this patient has multiple shobha gn renal cysts. This mass could be neoplastic or a complex cyst.
[2018-10-17] MEDS ORDERED: MORPHINE 4 MG/ML SYR ONE ×2 (16:56→19:22)
--- NOTE | 2018-10-17 16:56 | ER ---
Nurse's Notes [facility] Name: Jax Bojorquez Age: 83 yrs Sex: Male : 1935 Arrival Date: 10/17/2018 Time: 12:40 Bed 2 Private MD: Diagnosis: ilieitis;sepsis Presentation: 10/17 12:40 Presenting complaint: EMS states: Pt c/o abdominal cramping and diarrhea x 10 days. jl7 Began radiation September 22 and chemo started October 12. Transition of care: patient was not received from another setting of care. Onset of symptoms was October 08, 2018. Risk Assessment: Do you want to hurt yourself or someone else? Patient reports no desire to harm self or others. Initial Sepsis Screen: Does the patient meet any 2 criteria? HR > 90 bpm. No. Patient's initial sepsis screen is negative. Does the patient have a suspected source of infection? No. Patient's initial sepsis screen is negative. Care prior to arrival: Medication(s) given: Normal saline infusion, 300 mL IV initiated. 20 GA, in the right wrist. 12:40 Method Of Arrival: EMS: Call [facility] 12:40 Acuity: JASMEET 3 jl7 Historical: - Allergies: 12:49 No Known Allergies; jl7 - Home Meds: 12:49 fentanyl HCl transdermal 25 mcg transdermal 1 patch [Active]; hyoscyamine sulfate 0.125 jl7 mg SL subl [Active]; promethazine 25 mg Oral tab 1 tab every 6 hours [Active]; granisetron HCl 1 mg oral tab 1 tab every 12 hours [Active]; pravastatin 40 mg oral tab 1 tab once daily [Active]; - PMHx: 12:49 BPH; High Cholesterol; Hypertension; Prostate Cancer; jl7 - PSHx: 12:49 Port a cath- left chest wall; jl7 - Immunization history:: Adult Immunizations up to date. - Ebola Screening: : No symptoms or risks identified at this time. - Social history:: Smoking status: Patient/guardian denies using tobacco. Screenin:52 Abuse screen: Denies threats or abuse. Denies injuries from another. Nutritional jl7 screening: No deficits noted. Tuberculosis screening: No symptoms or risk factors identified. Fall Risk IV access (20 points). Ambulatory Aid- None/Bed Rest/Nurse Assist (0 pts). Gait- Weak (10 pts.). Mental Status- Oriented to own ability (0 pts). Total Ghosh Fall Scale indicates Low Risk Score (25-44 pts). Fall prevention measures have been instituted. Side Rails Up X 2 Placed close to Nursing Station Frequent Obs/Assesments occuring Family Present and informed to notify staff if they need to leave bedside As available Patient and Family Educated on Fall Prevention Program and strategies. Assessment: 12:50 General: Appears in no apparent distress. uncomfortable, Behavior is calm, cooperative, la1 appropriate for age. Pain: Complains of pain in abdomen Pain currently is 5 out of 10 on a pain scale. at worst was 10 out of 10 on a pain scale. Quality of pain is described as crampy, Pain began 10 days ago Is intermittent. Neuro: Level of Consciousness is awake, alert, obeys commands, Oriented to person, place, time, situation. Cardiovascular: Patient's skin is warm and dry. Respiratory: Airway is patent Respiratory effort is even, unlabored, Respiratory pattern is regular, symmetrical. GI: Abdomen is round non-distended, Bowel sounds present X 4 quads. Reports diarrhea, Patient currently denies nausea, vomiting. : No signs and/or symptoms were reported regarding the genitourinary system. EENT: No signs and/or symptoms were reported regarding the EENT system. Derm: Skin is dry, Skin is pale, Skin temperature is warm. Musculoskeletal: No signs and/or symptoms reported regarding the musculoskeletal system. 13:45 Reassessment: Pt requesting medication for the abdominal cramping, ANGELICA notified, see [address] for orders. 14:45 Reassessment: Pt requesting something for pain, pt's family reports "His fentanyl patch jl7 is due to be changed today so that's probably why he's in pain." ERD notified, See MAR for orders. 16:00 Reassessment: Patient appears in no apparent distress at this time. No changes from jl7 previously documented assessment. Patient and/or family updated on plan of care and expected duration. Pain level reassessed. Patient is alert, oriented x 3, equal unlabored respirations, skin warm/dry/pink. 17:00 Reassessment: Patient appears in no apparent distress at this time. Patient and/or jl7 family updated on plan of care and expected duration. Pain level reassessed. Patient is alert, oriented x 3, equal unlabored respirations, skin warm/dry/pink. 18:00 Reassessment: Patient appears in no apparent distress at this time. Patient and/or jl7 family updated on plan of care and expected duration. Pain level reassessed. Patient is alert, oriented x 3, equal unlabored respirations, skin warm/dry/pink. 18:15 Reassessment: Attempted call report to second floor, ext [phone], no answer at this time. jl7 Also tried ext [id number], no answer at this time. 19:23 Reassessment: Patient and/or family updated on plan of care and expected duration. Pain ea level reassessed. Pt complaining of pain, verbal order obtained from Dr. Bauer for morphine 4 mg IVP x 1, maintenance NS at 125 ml per hour, medication administered, pt tolerated well. Vital Signs: 12:49 BP 118 / 81; Pulse 123; Resp 20 S; Temp 98.1(O); Pulse Ox 98% on R/A; jl7 12:50 BP 118 / 81; Pulse 109; Resp 24 S; Pulse Ox 98% on R/A; la1 12:52 Weight 81.65 kg (R); Height 5 ft. 10 in. (177.80 cm) (R); jl7 13:45 BP 122 / 74; Pulse 109; Resp 20 S; Pulse Ox 98% on R/A; jl7 14:30 BP 135 / 61; Pulse 112; Resp 16 S; Pulse Ox 98% on R/A; jl7 15:00 BP 127 / 67; Pulse 109; Resp 16 S; Pulse Ox 98% on R/A; jl7 15:45 BP 125 / 89; Pulse 108; Resp 24 S; Pulse Ox 98% on R/A; jl7 16:58 BP 130 / 57; Pulse 117; Resp 23 S; Pulse Ox 100% on R/A; jl7 17:15 BP 129 / 53; Pulse 106; Resp 22 S; Pulse Ox 98% on R/A; jl7 18:16 BP 129 / 58; Pulse 106; Resp 24 S; Pulse Ox 98% on R/A; jl7 19:27 BP 130 / 68; Pulse 118; Resp 22; Pulse Ox 98% on R/A; ea 12:52 Body Mass Index 25.83 (81.65 kg, 177.80 cm) jl7 ED Course: 12:40 Patient arrived in ED. jl7 12:42 Del Douglas MD is Attending Physician. ps1 12:44 Triage completed. jl7 12:49 Arm band placed on right wrist. jl7 12:50 Darya Carcamo RN is Primary Nurse. jl7 12:52 Patient has correct armband on for positive identification. Placed in gown. Bed in low jl7 position. Call light in reach. Side rails up X2. commodity merchant on. Pulse ox on. NIBP on. Warm blanket given. 12:57 EKG done, by ED staff, reviewed by Del Douglas MD. jb1 13:00 Inserted saline lock: 22 gauge in right antecubital area, using aseptic technique. aa5 Blood collected. 13:00 Initial lab(s) drawn, by me, sent to lab. First set of blood cultures drawn by me. aa5 14:04 Chest Single View XRAY In Process Unspecified. EDMS 16:02 Abdomen In Process Unspecified. EDMS 16:44 Del Douglas MD is Hospitalizing Provider. ps1 16:44 Hospitalizing Provider role handed off by Del Douglas MD ps1 16:44 Stephanie Nicholas MD is Hospitalizing Provider. ps1 18:16 No provider procedures requiring assistance completed. Patient admitted, IV remains in jl7 place. intact, No redness/swelling at site. 19:00 Notified ED physician of a critical lab result(s). Lactate 4.1. aa5 Administered Medications: 13:07 Drug: NS 0.9% (30 ml/kg) 30 ml/kg Route: IV; Rate: bolus; Site: right wrist; aa5 15:26 Follow up: IV Status: Completed infusion jl7 14:00 Drug: Bentyl 20 mg Route: PO; la1 14:45 Follow up: Response: No adverse reaction; Other; Cramping is decreased jl7 14:01 Drug: Potassium Chloride 20 mEq Route: IV; Rate: bolus; Site: right antecubital; la1 15:35 Follow up: Response: No adverse reaction; IV Status: Completed infusion jl7 14:04 Drug: Magnesium Sulfate 1 grams Route: IVPB; Infused Over: 1 hrs; Site: right wrist; la1 15:07 Follow up: Response: No adverse reaction; IV Status: Completed infusion jl7 14:40 Drug: Flagyl 500 mg Volume: 100 ml; Route: IVPB; Rate: 200 ml/hr; Infused Over: 30 jl7 mins; Site: right antecubital; 15:10 Follow up: Response: No adverse reaction; IV Status: Completed infusion jl7 15:15 Drug: vancoMYCIN 1 grams Route: IVPB; Infused Over: 2 hrs; Site: right wrist; jl7 17:15 Follow up: Response: No adverse reaction; IV Status: Completed infusion jl7 16:51 Drug: morphine 4 mg Route: IVP; Site: right antecubital; jl7 17:15 Follow up: Response: No adverse reaction; Pain is decreased jl7 19:23 Drug: morphine 4 mg Route: IVP; Site: right wrist; ea Outcome: 16:56 Decision to Hospitalize by Provider. ps1 19:38 Admitted to Med/surg accompanied by tech, family with patient, via stretcher, room 213, ak1 with chart, Report called to Kirt SCHULTZ 19:38 Condition: stable 19:38 Instructed on the need for admit. 20:27 Patient left the ED. ak1 Signatures: Dispatcher [employer] EDMS Jai العراقي Audri RN RN [email or web address] Lon Richards RN RN Maryann Gray RN RN ak1 Darya Carcamo RN RN jl7 Jasmyn North RN RN ea Singer, Phillip, MD MD ps1 Corrections: (The following items were deleted from the chart) 16:55 15:27 Response: No adverse reaction; Other; Cramping is decreased jl7 jl7 16:57 14:45 Reassessment: Pt requesting something for pain, ERD notified, See MAR for orders jl7 jl7
--- NOTE | 2018-10-17 16:57 | EDPHYS ---
Physician Documentation [facility] Name: aJx Bojorquez Age: 83 yrs Sex: Male : 1935 Arrival Date: 10/17/2018 Time: 12:40 Bed 2 Private MD: ED Physician Del Douglas HPI: 10/17 12:49 This 83 yrs old Male presents to ER via EMS with complaints of Diarrhea and ps1 fatigue. 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 On chemotherapy. States that he has had ps1 diarrhea for several weeks. [facility] Was [facility] to go up there to be evaluated for dehydration but was too fatigued to get into the car and EMS was called. States that he has multiple episodes of diarrhea daily. He was given IV fluids a week ago and it made him feel better. Denies fever. . Historical: - Allergies: 12:49 No Known Allergies; jl7 - Home Meds: 12:49 fentanyl HCl transdermal 25 mcg transdermal 1 patch [Active]; hyoscyamine sulfate 0.125 jl7 mg SL subl [Active]; promethazine 25 mg Oral tab 1 tab every 6 hours [Active]; granisetron HCl 1 mg oral tab 1 tab every 12 hours [Active]; pravastatin 40 mg oral tab 1 tab once daily [Active]; - PMHx: 12:49 BPH; High Cholesterol; Hypertension; Prostate Cancer; jl7 - PSHx: 12:49 Port a cath- left chest wall; jl7 - Immunization history:: Adult Immunizations up to date. - Ebola Screening: : No symptoms or risks identified at this time. - Social history:: Smoking status: Patient/guardian denies using tobacco. ROS: 12:49 Eyes: Negative for injury, pain, redness, and discharge, ENT: Negative for injury, ps1 pain, and discharge, Cardiovascular: Negative for chest pain, palpitations, and edema, Respiratory: Negative for shortness of breath, cough, wheezing, and pleuritic chest pain, Back: Negative for injury and pain, MS/Extremity: Negative for injury and deformity, Skin: Negative for injury, rash, and discoloration, Neuro: Negative for headache, weakness, numbness, tingling, and seizure. 12:49 Constitutional: Positive for body aches, fatigue, weight loss. 12:49 Abdomen/GI: Positive for diarrhea. Exam: 12:49 Constitutional: This is a well developed, well nourished patient who is awake, alert, ps1 and in no acute distress. Head/Face: Normocephalic, atraumatic. Eyes: Pupils equal round and reactive to light, extra-ocular motions intact. Lids and lashes normal. Conjunctiva and sclera are non-icteric and not injected. Chest/axilla: Normal chest wall appearance and motion. Nontender with no deformity. No lesions are appreciated. Cardiovascular: Regular rate and rhythm. No gallops, murmurs, or rubs. Normal PMI, no JVD. No pulse deficits. Respiratory: Lungs have equal breath sounds bilaterally, clear to auscultation and percussion. No rales, rhonchi or wheezes noted. No increased work of breathing, no retractions or nasal flaring. Abdomen/GI: Soft, non-tender, with normal bowel sounds. No distension or tympany. No guarding or rebound. No evidence of tenderness throughout. Skin: Warm, dry with normal turgor. Normal color with no rashes, no lesions, and no evidence of cellulitis. MS/ Extremity: Pulses equal, no cyanosis. Neurovascular intact. Full, normal range of motion. Neuro: Awake and alert, GCS 15, oriented to person, place, time, and situation. Cranial nerves II-XII grossly intact. Sensory grossly intact. Psych: Awake, alert, with orientation to person, place and time. Behavior, mood, and affect are within normal limits. 14:21 ECG was reviewed by the Attending Physician. ps1 Vital Signs: 12:49 BP 118 / 81; Pulse 123; Resp 20 S; Temp 98.1(O); Pulse Ox 98% on R/A; jl7 12:50 BP 118 / 81; Pulse 109; Resp 24 S; Pulse Ox 98% on R/A; la1 12:52 Weight 81.65 kg (R); Height 5 ft. 10 in. (177.80 cm) (R); jl7 13:45 BP 122 / 74; Pulse 109; Resp 20 S; Pulse Ox 98% on R/A; jl7 14:30 BP 135 / 61; Pulse 112; Resp 16 S; Pulse Ox 98% on R/A; jl7 15:00 BP 127 / 67; Pulse 109; Resp 16 S; Pulse Ox 98% on R/A; jl7 15:45 BP 125 / 89; Pulse 108; Resp 24 S; Pulse Ox 98% on R/A; jl7 16:58 BP 130 / 57; Pulse 117; Resp 23 S; Pulse Ox 100% on R/A; jl7 17:15 BP 129 / 53; Pulse 106; Resp 22 S; Pulse Ox 98% on R/A; jl7 18:16 BP 129 / 58; Pulse 106; Resp 24 S; Pulse Ox 98% on R/A; jl7 19:27 BP 130 / 68; Pulse 118; Resp 22; Pulse Ox 98% on R/A; ea 12:52 Body Mass Index 25.83 (81.65 kg, 177.80 cm) jl7 MDM: 13:32 Patient medically screened. ps1 16:56 Data reviewed: vital signs, nurses notes, lab test result(s), radiologic studies, and ps1 as a result, I will admit patient. Counseling: I had a detailed discussion with the patient and/or guardian regarding: the historical points, exam findings, and any diagnostic results supporting the discharge/admit diagnosis, the need for further work-up and treatment in the hospital. 10/17 12:49 Order name: CDIFF ps1 10/17 12:49 Order name: Blood Culture Adult (2) ps1 10/17 12:49 Order name: CBC with Diff; Complete Time: 17:40 ps1 10/17 12:49 Order name: Lactate; Complete Time: 13:40 ps1 10/17 12:49 Order name: Lipase; Complete Time: 13:40 ps1 10/17 12:49 Order name: Procalcitonin; Complete Time: 14:01 ps1 10/17 12:49 Order name: Troponin (emerg Dept Use Only); Complete Time: 13:40 ps1 10/17 12:49 Order name: Urine Microscopic Only ps1 10/17 12:49 Order name: CMP; Complete Time: 13:40 ps1 10/17 12:50 Order name: Clostridium difficile DNA EDMS 10/17 12:50 Order name: Blood Culture EDMS 10/17 12:53 Order name: Flu; Complete Time: 14:10 ps1 10/17 13:45 Order name: Manual Differential EDMS 10/17 17:27 Order name: CBC Smear Scan; Complete Time: 17:40 EDMS 10/17 12:49 Order name: Chest Single View XRAY; Complete Time: 14:23 ps1 10/17 12:49 Order name: Accucheck; Complete Time: 13:24 ps1 02 12:49 Order name: Cardiac monitoring; Complete Time: 12:51 ps1 /02 12:49 Order name: EKG - Nurse/Tech; Complete Time: 12:58 ps1 / 12:49 Order name: IV Saline Lock - Large Bore; Complete Time: 13:09 ps1 10/17 16:01 Order name: Abdomen ; Complete Time: 16:38 EDMS 10/17 19:01 Order name: Lactate Sepsis 2 HR Follow-up; Complete Time: 19:10 EDMS 10/17 12:49 Order name: Labs collected and sent; Complete Time: 13:09 ps1 10/17 12:49 Order name: O2 Per Protocol; Complete Time: 12:58 ps1 10/17 12:49 Order name: O2 Sat Monitoring; Complete Time: 12:58 ps1 EC:21 Rate is 120 beats/min. Rhythm is regular. QRS [place] is Normal. IN interval is normal. ps1 QRS interval is normal. QT interval is normal. No Q waves. T waves are Flattened. No ST changes noted. Clinical impression: Sinus tachycardia. Administered Medications: 13:07 Drug: NS 0.9% (30 ml/kg) 30 ml/kg Route: IV; Rate: bolus; Site: right wrist; aa5 15:26 Follow up: IV Status: Completed infusion jl7 14:00 Drug: Bentyl 20 mg Route: PO; la1 14:45 Follow up: Response: No adverse reaction; Other; Cramping is decreased jl 14:01 Drug: Potassium Chloride 20 mEq Route: IV; Rate: bolus; Site: right antecubital; la1 15:35 Follow up: Response: No adverse reaction; IV Status: Completed infusion jl7 14:04 Drug: Magnesium Sulfate 1 grams Route: IVPB; Infused Over: 1 hrs; Site: right wrist; la1 15:07 Follow up: Response: No adverse reaction; IV Status: Completed infusion jl7 14:40 Drug: Flagyl 500 mg Volume: 100 ml; Route: IVPB; Rate: 200 ml/hr; Infused Over: 30 jl7 mins; Site: right antecubital; 15:10 Follow up: Response: No adverse reaction; IV Status: Completed infusion jl7 15:15 Drug: vancoMYCIN 1 grams Route: IVPB; Infused Over: 2 hrs; Site: right wrist; jl7 17:15 Follow up: Response: No adverse reaction; IV Status: Completed infusion jl7 16:51 Drug: morphine 4 mg Route: IVP; Site: right antecubital; jl7 17:15 Follow up: Response: No adverse reaction; Pain is decreased jl7 19:23 Drug: morphine 4 mg Route: IVP; Site: right wrist; ea Disposition: 10/17/18 16:56 Hospitalization ordered by Stephanie Nicholas for Inpatient Admission. Preliminary diagnosis are ilieitis, sepsis. - Bed requested for Telemetry/MedSurg (Inpatient). - Status is Inpatient Admission. ak1 - Condition is Fair. - Problem is an ongoing problem. - Symptoms are unchanged. UTI on Admission? No Signatures: Dispatcher [employer] EDWA Jazmin Rich RN RN mw Zara Virgen, RN RN aa5 Lon Richards, RN RN la1 Maryann Samuels RN RN ak1 Darya Carcamo RN RN jl7 Jasmyn North RN Marek Perez ea, MD MD gs Del Douglas MD MD ps1 Corrections: (The following items were deleted from the chart) 16:01 15:16 Abdomen Pelvis W Con+CT.RAD.BRZ ordered. [facility] EDWA 18:10 16:56 Hospitalization Ordered by Stephanie Nicholas MD for Inpatient Admission. Preliminary diagnosis is ilieitis; sepsis. Bed requested for Telemetry/MedSurg (Inpatient). Status is Inpatient Admission. Condition is Fair. Problem is an ongoing problem. Symptoms are unchanged. UTI on Admission? No. ps1 20:27 18:10 10/17/2018 16:56 Hospitalization Ordered by Stephanie Nicholas MD for Inpatient ak1 Admission. Preliminary diagnosis is ilieitis; sepsis. Bed requested for Telemetry/MedSurg (Inpatient). Status is Inpatient Admission. Condition is Fair. Problem is an ongoing problem. Symptoms are unchanged. UTI on Admission? No. mw
[2018-10-17 17:26] LABS: Blood Morphology Comment NOT SEEN (NOT SEEN); Platelet Estimate ADEQ; Urine White Blood Cell Casts OK
[2018-10-17] MEDS ORDERED: NA CHLORIDE 0.9% 1,000 ML ONE (19:22)
[2018-10-17] MEDS ORDERED: ONDANSETRON 4 MG/2 ML VIAL ONE (19:22)
[2018-10-17] MEDS ORDERED: ALBUTEROL 2.5 MG/3 ML NEB SOL NEB PRN (19:39)
[2018-10-17] MEDS: NA CHLORIDE 0.9% 1,000 ML IV SCH (19:39)
[2018-10-17] MEDS ORDERED: SILVER NITRATE 1 APPL TOP ONE (19:39)
[2018-10-17] MEDS ORDERED: ACETAMINOPHEN 500 MG TAB PO PRN (19:39)
[2018-10-17] MEDS: CIPROFLOXACIN 400mg IV 400 MG/200 ML BAG IV SCH (21:46)
[2018-10-17] MEDS: MORPHINE 2 MG/ML SYR IV PRN (22:49)
[2018-10-18] MEDS: METRONIDAZOLE 500mg IVPB 500 MG/100 ML BAG IV SCH ×3 (00:17→12:04)
[2018-10-18 01:30] VITALS: BMI 25.8
[2018-10-18] MEDS: MORPHINE 2 MG/ML SYR IV PRN ×3 (02:20→10:01)
[2018-10-18 04:57] LABS: Hematocrit 30.2 % (39.6-49.0); MPV 8.3 fL (7.6-11.3); RBC Red Blood Cell Count 3.28 M/uL (4.33-5.43)
[2018-10-18 05:23] LABS: Albumin 1.8 g/dL (3.4-5.0); Bilirubin Total 1.1 mg/dL (0.2-1.0); Potassium 3.4 mmol/L (3.5-5.1); Protein, Total 4.8 g/dL (6.4-8.2)
[2018-10-18 05:39] LABS: Platelet Estimate DECR; Platelets, Giant FEW
[2018-10-18 05:40] LABS: Blood Morphology Comment NOT SEEN (NOT SEEN)
[2018-10-18] MEDS: NA CHLORIDE 0.9% 1,000 ML IV SCH (05:55)
[2018-10-18] MEDS ORDERED: CALCIUM GLUC 10% INJ 4.65 MEQ in NA CHLORIDE 0.9% 100 ML IV ONE (08:00)
[2018-10-18] MEDS: KCL 20 MEQ/100 mL IVPB 20 MEQ/100 ML BAG IV SCH ×2 (08:59→12:04)
[2018-10-18] MEDS: ENOXAPARIN 30 MG/0.3 ML SQ SCH (09:00)
[2018-10-18] MEDS ORDERED: ENOXAPARIN 40 MG/0.4 ML SQ SCH (09:00)
[2018-10-18] MEDS: CIPROFLOXACIN 400mg IV 400 MG/200 ML BAG IV SCH (10:02)
[2018-10-18] MEDS ORDERED: TRAMADOL HCL 50 MG TAB PO PRN (10:16)
[2018-10-18] MEDS ORDERED: D50W 25 GM/50 ML SYRINGE IV ONE (14:33)
[2018-10-18] MEDS ORDERED: D5 0.45 NS 1,000 ML IV ONE (14:36)
[2018-10-18] MEDS ORDERED: D5W 1,000 ML with NA BICARB 8.4% 50 MEQ IV SCH ×2 (15:00)
[2018-10-18] MEDS ORDERED: NOREPINEPHRINE 4 MG in D5W 250 ML IV PRN (15:09)
[2018-10-18 15:10] LABS: Absolute Lymphocytes (CBC) 0.1 K/uL (0.7-4.9); Eosinophils % 3.4 % (0-4.4); Hematocrit 30.3 % (39.6-49.0); Lymphocytes % 84.6 % (15.3-44.8); MPV 9.1 fL (7.6-11.3); Monocytes % 2.3 % (3.3-12.3); RBC Red Blood Cell Count 3.16 M/uL (4.33-5.43)
[2018-10-18 15:26] LABS: Magnesium 2.2 mg/dL (1.8-2.4); Phosphorus 7.8 mg/dL (2.5-4.9)
[2018-10-18 15:39] LABS: Albumin 1.5 g/dL (3.4-5.0); Bilirubin Total 0.9 mg/dL (0.2-1.0); Potassium 5.3 mmol/L (3.5-5.1); Protein, Total 4.4 g/dL (6.4-8.2)
[2018-10-18 15:40] LABS: Arterial Blood Carboxyhemoglob 0.1 % (0-1.5); Blood Gas Oxyhemoglobin 96.1 % (94-97)
--- NOTE | 2018-10-18 15:41 | RAD REPORT ---
EXAM DESCRIPTION: RAD - Abdomen 1 View (KUB) - 10/18/2018 3:13 pm CLINICAL HISTORY: abdominal tenderness, guarding Pain COMPARISON: Abdomen Pelvis Wo Contrast dated 10/17/2018 FINDINGS: Several moderately prominent/ dilated loops of small bowel noted in the central abdomen. P neumoperitoneum is not identified. No pathologic calcifications seen. Several sacral sclerotic lesions are seen suspicious for blastic metastatic disease.
--- NOTE | 2018-10-18 15:42 | RAD REPORT ---
EXAM DESCRIPTION: RAD - Chest Single View - 10/18/2018 3:13 pm CLINICAL HISTORY: Tachypnea Chest pain. COMPARISON: Abdomen 1 View (KUB) dated 10/18/2018; Chest Single View dated 10/17/2018; Abdomen Acute Ser ies dated 06/10/2018 FINDINGS: Portable technique limits examination quality. Lungs are underinflated with mild atelectasis suspected in both lung bases. The heart is mildly enlar ged in size. Left-sided port catheter is unchanged in position. IMPRESSION: Underinflated lungs.
[2018-10-18] MEDS ORDERED: FENTANYL CITR 100 MCG/2 ML IV ONE (15:54)
[2018-10-18] MEDS ORDERED: CALCIUM GLUC 10% INJ 9.3 MEQ in NA CHLORIDE 0.9% 100 ML IV ONE (16:00)
[2018-10-18] MEDS ORDERED: PIPER/TAZO/NS 2.25gm 2.25 GM/50 ML BAG IV SCH (16:00)
[2018-10-18] MEDS ORDERED: FENTANYL 50 MCG/PATCH TD SCH (16:13)
[2018-10-18 16:18] LABS: Urine White Blood Cell Casts OK
[2018-10-18 16:19] LABS: Blood Morphology Comment NOT SEEN (NOT SEEN); Platelet Estimate DECR
--- NOTE | 2018-10-18 16:24 | P.PN ---
Date of Service: 10/18/17 David Menon was called at around 1400 for patient having respiratory distress, abdominal pain and distention. When I arrived at bedside patient was tachypneic , tachycardic, vital signs was consistent with hypotension, patient has labored breathing. Physical exam was consistent with tenderness to touch all 4 quadrants in the abdominal area along with rebound tenderness noted on the left and right lower quadrants. Patient's blood sugar was checked at that time which was 32. Patient also had ABGs done at that time. ABGs were consistent with metabolic acidosis with pH of 7.03 and bicarb of 7. At that time orders were given to give patient 1 amp of the 10, 2 amps of bicarb, bolus of IV fluids D5 W 1 L the patient to be continued on non-rebreather. Stat CBC, CMP, pro calcitonin, lactic acid, LDH, KUB, chest x-ray were done. Patient was transferred to the ICU for further care. In the ICU patient continued to be hypotensive and thus was started on Levophed for pressure support. KUB and chest x-ray were done. Per physical exam and lab work patient most likely had acute abdomen. General surgery thus was consulted. A detailed discussion with family at bedside with general surgery and myself was done. Patient's prognosis along with terminal illness was discussed. Patient and his agreed on DNR DNI. Patient does not want to proceed with any surgical procedures at this time. At that time patient was to continue on Levophed, IV fluids, IV antibiotics were changed to vancomycin and meropenem. Patient was also to receive 3 amps of bicarb and D5 W. Nephrology and general surgery were consulted on the case.
[2018-10-18] MEDS ORDERED: VANCOMYCIN 2 GM in NA CHLORIDE 0.9% 500 ML IVPB SCH (17:00)
[2018-10-18] MEDS: D5W 1,000 ML with NA BICARB 8.4% 150 MEQ IV SCH ×4 (17:01→21:50)
[2018-10-18] MEDS: Meropenem 500 MG in NA CHLORIDE 0.9% 100 ML IV SCH (17:04)
--- NOTE | 2018-10-18 19:12 | EKG ---
Test Date: 2018-10-17 Test Time: 12:54:05 Clinical Social Work Therapist: RANDY MEASUREMENT RESULTS: Intervals: Rate: 120 TN: 130 QRSD: 68 QT: 310 QTc: 438 [place]: P: 49 TN: 130 QRS: -9 T: 198 INTERPRETIVE STATEMENTS: Sinus tachycardia ST & T wave abnormality, consider inferolateral ischemia Abnormal ECG Compared to ECG 02/08/2014 16:10:01 ST (T wave) deviation now present Possible ischemia now present Sinus rhythm no longer present Sinus arrhythmia no longer present T-wave abnormality no longer present Electronically Signed On 10-18-18 19:11:57 TECH BRAZER TESTER by Vicente Goetz
[2018-10-18] MEDS ORDERED: HYDROMORPHONE HCL 2 MG/ML inj ONE (19:25)
--- NOTE | 2018-10-18 21:29 | CON ---
Date of Consultation: 10/18/2018 Brief History Of Present Illness: The patient is an 83-year-old male, who presents with a history of abdominal pain, diarrhea, beginning approximately 10 to 12 days ago. He has been receivin g chemotherapy, Cytoxan based chemotherapy, for metastatic prostate cancer and developed worsening ab dominal pain. He was admitted yesterday on 10/17/2018 with the abdominal pain. Had a CT scan perfor med at workup and found to have multiple electrolyte abnormalities. In addition, he had significant leukopenia and thrombocytopenia or basically pancytopenia I should say. He ultimately came to the [facility], was admitted, and had worsening abdominal pain to where he got significantly worse earlier to day. A Code Yellow was called, which indicates that he was having hemodynamic instability. He was r esuscitated with IV fluids and pressors and transferred to the ICU at which point I was consulted to see the patient. The patient is conversive at the time of my examination. Past Medical History: Significant for BPH, high cholesterol, hypertension, metastatic prostate cance r. Past Surgical History: Port-A-Cath in the left chest, which is currently accessed. Home Medications: Include transdermal fentanyl 25 mcg, hyoscyamine sulfate, Phenergan, granisetron, and pravastatin. In addition, he has had 3 rounds of Cytoxan based chemotherapy by report. Social History: Noncontributory. Review of Systems: Other than HPI, he only has significant abdominal pain at this time. Physical Examination: Vital Signs: At time of my examination, he is currently on Levophed 3 mcg. His blood pressure is 71 /50, pulse is 116, respiratory rate 40, temperature 98.0. General: He is awake, alert, and oriented. Psychiatric: He is appropriate and conversive. HEENT: He is normocephalic. His sclerae are anicteric. His mucous membranes are moist. His oropha rynx is clear. Neck: Supple. No JVD. Chest: He is tachypneic. He is using accessory muscle breathing and has increased work of breathing with significant accessory muscle usage. ABDOMEN: His abdomen is distended and globally tender with global peritonitis evident. There is vol untary guarding and involuntary guarding. There is rebound. EXTREMITIES: There is no clubbing, cya nosis, or edema. SKIN: Otherwise somewhat cool and clammy. Laboratory Data: Reveals a white blood cell count of 0.2, his hemoglobin is 10.1, hematocrit of 30.3 , platelet count is 69, neutrophils are 9.7, lymphocytes are 84. His absolute neutrophil count is 0. 0, absolute monocytes are 0, absolute lymphocytes are 0.1. His sodium is 144, potassium is 5.3, chlo ride 109, carbon dioxide 13, BUN 39, creatinine 5.05. His glucose is 151. His lactic acid is 13.4, calcium 6.1, phosphorus is 7.8, magnesium 2.2. Total bilirubin 0.9, AST is 205, ALT 90, lactate dehy drogenase is 372, alkaline phosphatase was 35. His procalcitonin is greater than 200. Lipase was 61 on admission. He had imaging performed which included a CT scan of the abdomen and pelvis on admiss ion, which was officially read as very prominent ileus pattern involving majority of the ileum. Jeju num and colon are spared. No obstruction, free air, or surgically emergent finding. Multiple new henny ny metastatic lesions since February 2018 study with significant bone loss in the T11 body, but no overal l loss in height at this time. Multiple low density lesions in the liver, new since February 2018. Thes e are most likely metastatic lesions. A 10 mm pulmonary nodule, anterior left lung base, is likely m etastatic as well. A 2.6 cm isodense mass anterior to the mid right kidney is present and this parti cular has multiple benign renal cysts. This mass could be neoplastic or complex cyst. He additional ly had a chest x-ray performed on 10/17 as well which is officially read as tunneled expiration chest film, is not substantially different from 2018. Acute findings not suspected. Chest x-ray is offic ially reported as lungs are underinflated. Mild atelectasis suspected in both lung bases. Heart is mildly enlarged in size. Left-sided Port-A-Cath is unchanged in position. These are underinflated l ungs is the official impression. He had a KUB performed today on 10/18, official interpretation is s evere moderately prominent dilated loops of small bowel. No evidence of . Pneumoperitoneu m is not identified. No pathologic calcification seen. Several sacral sclerotic lesions are seen pizano spicious for blastic metastatic disease. Assessment And Plan: This is an 83-year-old male who comes in with multiple medical problems and is in currently multiorgan failure with liver failure and kidney failure and cardiovascular and respirat ory failure. I have spoken to the patient regarding surgical options at this point. However, the pa mayuri has made it very clear that he does not want any surgical intervention regardless of the outcom e and would like to opt for more comfort care and DNR status at this point with no escalation in care at this time. He wants comfort care measures. I have explained risks, benefits, and alternatives o f the above stated plan. The patient and his family are at the bedside and agreed to proceed as kd cated. I will be available should the patient change his mind for any surgical intervention, and he become more hemodynamically stable and become a surgical candidate. Thank you for this interesting consult. VALERIE/WALKER Voice ID: [id number] Report ID: [id number]
[2018-10-18] MEDS: FENTANYL CITR 100 MCG/2 ML IV PRN (21:32)
[2018-10-18] MEDS ORDERED: NOREPINEPHRINE 4mg/D5W 250mL 4 MG/250 ML BAG IV ONE (22:03)
[2018-10-18] MEDS: HYDROMORPHONE HCL 1 MG/ML INJ IV PRN (23:32)
--- NOTE | 2018-10-19 00:04 | P.HP ---
Patient History Date of Service: 10/17/18 Reason for admission: Diarrhea History of Present Illness: This is a 83 yr old male with multiple comorbidities admitted for diarrhea for the past 10-12 days. Per family, patient has a recent diagnosis of prostate cancer and he is currently undergoing chemotherapy. Last session was 1 week ago , with last neulasta shot also 1 week ago. His oncologist is Dr. Humphries in [facility]. Patient was experiencing non bloody diarrhea for the past 10-12 days but on the morning of admission, patient was noted to be very weak, unable to really stand and sliding out of his chair and bed. He was brought to the ED. In the ED, he was noted to have multiple electrolyte abnormalities, and his CT abdomen showed eid illeitus. He recieved vancomycin and flagyl in the ED. At the time of my exam, patient was AAOx3, joking with me and was in mild - mod distress. His last episode of watery, non bloody diarrhea was in the ED. He was admitted to the hospital for further care. Allergies No Known Allergies Allergy (Verified 10/17/18 23:51) Home Medications: Fentanyl Hcl Patch 25 mcg TD Q72H 10/18/18 Granisetron HCl [Kytril] 1 mg PO Q12H 10/18/18 Hyoscyamine Sulfate 0.125 mg SL Q6H PRN 10/18/18 Pravastatin Sodium 40 mg PO DAILY 10/18/18 Promethazine HCl 25 mg PO Q6H PRN 10/18/18 - Past Medical/Surgical History Has patient received pneumonia vaccine in the past: Yes Diabetic: No -: Gout -: HTN -: BPH -: High Cholesterol -: Prostate cancer -: TURP -: Port-a-cath left chest wall - Social History Smoking Status: Never smoker Alcohol use: No CD- Drugs: Yes Caffeine use: Yes Place of Residence: Home Review of Systems 10-point ROS is otherwise unremarkable Physical Examination - Vital Signs Temperature: 98.3 F Blood Pressure: 84/56 Pulse: 126 Respirations: 34 Pulse Ox (%): 100 - Physical Exam General: Alert, Oriented x3, Mild distress, Moderate distress HEENT: Atraumatic, PERRLA, Other (MM dry), EOMI, Sclerae nonicteric Neck: Supple, 2+ carotid pulse no bruit, No LAD, Without JVD or thyroid abnormality Respiratory: Clear to auscultation bilaterally, Normal air movement Cardiovascular: Regular rate/rhythm, Normal S1 S2 Gastrointestinal: No tenderness, Distended Musculoskeletal: No tenderness Integumentary: No rashes Neurological: Normal gait, Normal speech, Normal strength at 5/5 x4 extr, Normal tone, Normal affect - Studies Microbiology Data (last 24 hrs): 10/17/18 15:40 Stool Clostridium difficile Toxin Assay - Final Assessment and Plan - Plan This is a 83 yr old male with: Diarrhea Prostate cancer, currently undergoing chemo Hypokalemia Sepsis: Hypotensive, elevaetd procal, tachycardic Eid illeitis Leukopenia: Likely 2/2 chemo Blood presure improved with IVF, Admit patient to the floor IV antibiotics with cipro and flagyl Replete electrolytes per protocol. Monitor via A.M. labs Fentanyl patch already on. Morphine for pain control as BP is stable Monitor BP closely. May need to be transferred to ICU if BP drops for pressor support - Advance Directives Does patient have a Living Will: Yes Does patient have a Durable POA for Healthcare: Yes
--- NOTE | 2018-10-19 00:15 | P.PN ---
Subjective Date of Service: 10/18/18 Chief Complaint: Diarrhea Patient seen and examined at bedside. No family at bedside. Chart reviewed and case discussed with nursing staff. Patient reports some diffuse abdominal tenderness. Reports decreased UOP. Denies any CP, sob, dizziness, vision changes, chills. BP remained stable overnight; one low BP noted this am. Morphine held Review of Systems 10-point ROS is otherwise unremarkable Physical Examination - Vital Signs Temperature: 98.3 F Blood Pressure: 84/56 Pulse: 126 Respirations: 34 Pulse Ox (%): 100 - Physical Exam General: Alert, Oriented x3, Mild distress, Moderate distress HEENT: Atraumatic, PERRLA, EOMI Neck: Supple, JVD not distended Respiratory: Clear to auscultation bilaterally, Normal air movement Cardiovascular: Regular rate/rhythm, Normal S1 S2 Gastrointestinal: Distended, Tenderness (mild diffuse tenderness on deep palpation) Musculoskeletal: No tenderness Integumentary: No rashes Neurological: Normal speech, Normal tone, Normal affect Lymphatics: No axilla or inguinal lymphadenopathy - Studies Microbiology Data (last 24 hrs): 10/17/18 15:40 Stool Clostridium difficile Toxin Assay - Final Assessment And Plan - Plan This is a 83 yr old male with: Diarrhea Prostate cancer, currently undergoing chemo Hypokalemia Sepsis: Hypotensive, elevaetd procal, tachycardic [place]son illeitis Leukopenia: Likely 2/2 chemo Decreased urine output Blood pressure stable on the floor except 1 reading this am. Hold morphine Continue IV antibiotics with cipro and flagyl; continue IVF Replete electrolytes per protocol. Monitor via A.M. labs Fentanyl patch already on. Monitor BP closely. May need to be transferred to ICU if BP drops for pressor support Bladder scan; if high residual, will do straight cath.
[2018-10-19] MEDS ORDERED: NOREPINEPHRINE 4mg/D5W 250mL 4 MG/250 ML BAG IV ONE ×2 (00:53→03:43)
[2018-10-19] MEDS ORDERED: HYDROCORTISONE SUC 100 MG INJ IV ONE ×2 (01:04)
[2018-10-19] MEDS ORDERED: ALBUMIN HUMAN 25% 200 ML IV ONE (01:04)
[2018-10-19] MEDS ORDERED: HYDROCORTISONE SUC 100 MG INJ ONE (01:25)
[2018-10-19] MEDS ORDERED: ALBUMIN HUMAN 25% 100 ML IV ONE (01:47)
[2018-10-19] MEDS: HYDROMORPHONE HCL 1 MG/ML INJ IV PRN ×3 (03:54→15:39)
[2018-10-19] MEDS ORDERED: DIGOXIN 0.25 MG/ML AMP IV ONE (04:39)
[2018-10-19] MEDS: Meropenem 500 MG in NA CHLORIDE 0.9% 100 ML IV SCH (05:14)
[2018-10-19 05:34] LABS: Eosinophils % 18.3 % (0-4.4); Hematocrit 26.7 % (39.6-49.0); MPV 9.4 fL (7.6-11.3); Monocytes % 4.6 % (3.3-12.3)
[2018-10-19] MEDS ORDERED: METOPROLOL TARTRATE 5 MG/5 ML INJ IV ONE (05:37)
[2018-10-19] MEDS ORDERED: METOPROLOL TARTRATE 5 MG/5 ML INJ IV STA (05:38)
[2018-10-19 06:01] LABS: RBC Red Blood Cell Count 2.89 M/uL (4.33-5.43)
[2018-10-19 06:05] LABS: Albumin 2.5 g/dL (3.4-5.0); Bilirubin Total 1.3 mg/dL (0.2-1.0); Potassium 4.6 mmol/L (3.5-5.1); Protein, Total 5.1 g/dL (6.4-8.2)
[2018-10-19 06:16] LABS: Platelet Estimate DECR; Urine White Blood Cell Casts OK
[2018-10-19 06:17] LABS: Anisocytosis 1+; Blood Morphology Comment NOTED (NOT SEEN); Poikilocytosis 1+
[2018-10-19] MEDS ORDERED: NOREPINEPHRINE 4 MG/4 ML VIAL ONE ×2 (06:54→11:00)
[2018-10-19] MEDS ORDERED: D5W 250 ML IV ONE ×2 (06:54→11:00)
--- NOTE | 2018-10-19 07:23 | EKG ---
Test Date: 2018-10-19 Test Time: 04:53:27 [employer] Professor: ROCKY MEASUREMENT RESULTS: Intervals: Rate: 151 ME: QRSD: 68 QT: 286 QTc: 453 [place]: P: ME: QRS: 0 T: 133 INTERPRETIVE STATEMENTS: Atrial fibrillation with rapid ventricular response Nonspecific ST and T wave abnormality, probably digitalis effect Abnormal ECG Compared to ECG 10/17/2018 12:54:05 Sinus tachycardia no longer present Possible ischemia no longer present ST (T wave) deviation still present Electronically Signed On 10-19-18 07:18:39 DATA ENTRY MANAGER by Vicente Goetz
[2018-10-19] MEDS: FENTANYL CITR 100 MCG/2 ML IV PRN (07:38)
[2018-10-19] MEDS: ENOXAPARIN 30 MG/0.3 ML SQ SCH (08:52)
--- NOTE | 2018-10-19 09:51 | P.PN ---
Subjective Date of Service: 10/19/18 Chief Complaint: Diarrhea Subjective: No new changes (patient has worsening hemodynamic instability) Physical Examination - Vital Signs Temperature: 97.1 F Blood Pressure: 83/44 Pulse: 140 Respirations: 26 Pulse Ox (%): 97 - Physical Exam General: Moderate distress Gastrointestinal: Other (abdomen remains tender globally, distended, + voluntary guarding ) - Studies Microbiology Data (last 24 hrs): 10/17/18 15:40 Stool Clostridium difficile Toxin Assay - Final Assessment And Plan - Current Problems (Diagnosis) (1) Multi-organ failure with liver failure Current Visit: Yes Status: Acute Plan: Patient continues to decline surgery - has requested hospice consult by report - will remain available for future needs
[2018-10-19] MEDS ORDERED: SCOPOLAMINE HYDROBROMIDE PATCH TD SCH (10:00)
--- NOTE | 2018-10-19 10:17 | P.PN ---
Subjective Date of Service: 10/19/18 patient is gone and AFib with RVR. His heart rate was in the 170s. He is hypotensive on Levophed as well. Preferential treatment would be cardioversion. however, family does not want cardioversion. Patient is a DNR. They are okay with medical therapy. Patient continues to be tachypneic. His prognosis is very poor. Review of Systems 10-point ROS is otherwise unremarkable Physical Examination - Vital Signs Temperature: 97.1 F Blood Pressure: 83/44 Pulse: 140 Respirations: 26 Pulse Ox (%): 97 - Physical Exam General: Alert, Severe distress Respiratory: Expiratory wheezes, Rhonchi/gurgles Cardiovascular: Irregular heart rate/rhythm, Systolic murmur Gastrointestinal: Normal bowel sounds, Soft and benign, Non-distended Musculoskeletal: No clubbing, Swelling - Studies Microbiology Data (last 24 hrs): 10/17/18 15:40 Stool Clostridium difficile Toxin Assay - Final Assessment & Plan - Problems (Diagnosis) (1) Prostate cancer, primary, with metastasis from prostate to other site Current Visit: Yes Status: Acute (2) Hypotension Current Visit: Yes Status: Acute (3) Septic shock Current Visit: Yes Status: Acute (4) Atrial fibrillation with rapid ventricular response Current Visit: Yes Status: Acute (5) Shortness of breath Current Visit: Yes Status: Acute - Plan Plan: 1. IV digoxin 2. If his blood pressure improves will give IV Lopressor 3. IV albumin with IV steroids 4. Family does not want cardiology or pulmonary consultation at this time. They are leaning more towards comfort measures 5. GI and DVT prophylaxis - Advance Directives Does patient have a Living Will: Yes Does patient have a Durable POA for Healthcare: Yes - Code Status/Comfort Care Code Status: Do Not Resuscitate Critical Care: Yes Time Spent Managing PTS Care (In Minutes): 55
--- NOTE | 2018-10-19 10:22 | RAD REPORT ---
EXAM DESCRIPTION: RAD - Abdomen 1 View (KUB) - 10/19/2018 10:13 am CLINICAL HISTORY: Abdomen pain. FINDINGS: A couple loops of moderately dilated small bowel are without obvious change. The remainder the bowel gas pattern is diminished. Her Sclerotic foci within the bones is unchanged presumably representing metastatic disease
--- NOTE | 2018-10-19 10:27 | RAD REPORT ---
EXAM DESCRIPTION: Alisha Single View10/19/2018 10:16 am CLINICAL HISTORY: Shortness of breath COMPARISON: October FINDINGS: The lungs appear clear of acute infiltrate. The heart is mildly enlarged. Central venous catheter remains in place IMPRESSION: No acute abnormalities displayed
[2018-10-19 13:17] VITALS: O2SAT 99
[2018-10-19] MEDS: D5W 1,000 ML with NA BICARB 8.4% 150 MEQ IV SCH ×2 (14:59)
--- NOTE | 2018-10-19 15:19 | P.DS ---
Admission Date: 10/17/18 Discharge Date: 10/19/18 Primary Care Provider: Oncology-Page [facility] Disposition: HOSPICE-MEDICAL FACILITY Discharge Condition: CRITICAL Reason for Admission: Diarrhea Consultations: Surgery-Dr. Rees Nephrology-Dr. Rodgers Procedures: CT scan: COMPARISON: CT imaging February 2018 TECHNIQUE: Axial [address] imaging of the abdomen and pelvis was performed without IV contrast. No IV contrast was given because of allergy, abnormal renal function, patient refusal or physician request. No oral contrast. All CT scans are performed using dose optimization technique as appropriate and may include automated exposure control or mA/KV adjustment according to patient size. FINDINGS: The 10 millimeter pulmonary nodule is present in the anterior lower left lung field. Prior examination is not quite adequate for comparison. No infiltrate, pneumothorax or pleural effusion. No pericardial effusion. In segment II left lobe there is a 2.7 centimeter oval poorly demarcated area diminished density. No similar finding back in the February 2018 study. In segment 1 a 12 millimeter round low-density area of diminished attenuation is seen. There is a 13 millimeter subcapsular hypodensity medial margin in segment . In the subcapsular lateral segment V there is a 15 millimeter round low-density mass. None of these were clearly seen on the February 2018 study. Spleen and pancreas show no acute or suspicious findings. Gallbladder and biliary tree are also without suspicious finding. Gallstones can be occult on CT imaging. No hydronephrosis of either kidney. No obstructing or nonobstructing calculi. Patient has bilateral low-density masses in both kidneys most likely cysts. In the anterior mid right kidney there is a 2.6 centimeter mass that is isodense to the parenchyma. Solid mass and complex cyst can both have this appearance. Patient has a nonspecific, symmetric perinephric stranding pattern. No significant adrenal finding. Isodense renal masses and pyelonephritis cannot be excluded in the absence of IV contrast. The urinary bladder is without significant finding. No gastric dilatation or wall thickening. Proximal small bowel is unremarkable. The majority of the ileum shows a very prominent circumferential wall thickening and edema. There is stranding in the adjacent fat. No focal mass lesions seen. Distal few cm of the terminal ileum are uninvolved. No acute colon finding. The patient has sigmoid diverticulosis without acute diverticulitis. No mass or bulky lymphadenopathy. No omental thickening. Patient has small fat only umbilical hernia and bilateral fat filled inguinal hernias, larger on the left. Disc and bony degenerative changes are present. Multiple sclerotic or blastic areas are present in the pelvis and spine. These are new from the prior examination. There is significant bone loss to the T11 body. No overall loss in height in T11. IMPRESSION: Very prominent ileitis pattern involving majority of the ileum. Jejunum and colon are spared. No obstruction, free air or surgically emergent finding. Multiple new bony metastatic lesions since the February 2018 study. There is significant bone loss to the T11 body but no overall loss in height at this time. Multiple low-density lesions in the liver new from February 2018. These are most likely metastatic lesions. A 10 millimeter pulmonary nodule anterior left lung base likely metastatic as well. A 2.6 centimeter isodense mass anterior mid right kidney is present in this patient has multiple benign renal cysts. This mass could be neoplastic or a complex cyst. 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 Patient with recent diagnosis of prostate cancer with recent chemotherapy. Patient has stage IV cancer with metastasis to the bone and liver. Patient admitted for further evaluation. Hospital Course: Patient presented with acute on chronic diarrhea, severe malnutrition. This was complicated with stage IV prostate cancer with metastasis to the bone, liver and kidney. Patient had been recently diagnosis and started chemotherapy. Since that time his condition had started to deteriorate. Patient developed septic shock secondary to ileitis. He likely developed ileus is well. Acute on chronic renal failure, liver failure, metabolic acidosis and pancytopenia secondary to septic shock was also noted. Patient condition was critical and likely not to improve. This was addressed in detail with the patient. Advanced directives addressed in detail with the patient and family. Patient wishes to be do not resuscitate and [id number]. Patient wishes to be comfortable. Hospice was discussed with patient and family in detail. They wish to start inpatient hospice. They plan to withdrawal care including vasopressor-Levophed once family members have said goodbye. Last rites given to the patient. Hospice to be continued inpatient. Continue with comfort measures. Vital Signs/Physical Exam: Temp Pulse Resp BP Pulse Ox 97.1 F 141 H 29 H 100/36 L 100 10/19/18 10:17 10/19/18 11:45 10/19/18 11:45 10/19/18 11:45 10/19/18 11:45 General: Alert, Other (Patient appears comfortable) HEENT: Atraumatic Neck: Supple Respiratory: Crackles/rales (Bilateral) Cardiovascular: Irregular heart rate/rhythm (Atrial fibrillation with RVR) Gastrointestinal: Hypoactive, Distended Musculoskeletal: No tenderness, No warmth Neurological: Normal strength at 5/5 x4 extr, Normal tone Laboratory Data at Discharge: WBC < 0.5 K/uL (4.3-10.9) L* D 10/19/18 05:11 Hgb 9.2 g/dL (13.6-17.9) L 10/19/18 05:11 Hct 26.7 % (39.6-49.0) L 10/19/18 05:11 Plt Count 43 K/uL (152-406) L* D 10/19/18 05:11 Sodium 137 mmol/L (136-145) 10/19/18 05:11 Potassium 4.6 mmol/L (3.5-5.1) 10/19/18 05:11 BUN 53 mg/dL (7-18) H 10/19/18 05:11 Creatinine 5.65 mg/dL (0.55-1.3) H* 10/19/18 05:11 Glucose 257 mg/dL (74-106) H 10/19/18 05:11 Phosphorus 7.8 mg/dL (2.5-4.9) H 10/18/18 14:50 Magnesium 2.2 mg/dL (1.8-2.4) 10/18/18 14:50 Total Bilirubin 1.3 mg/dL (0.2-1.0) H 10/19/18 05:11 AST 2446 U/L (15-37) H* D 10/19/18 05:11 ALT 890 U/L (12-78) H* D 10/19/18 05:11 Alkaline Phosphatase 30 U/L (45-117) L 10/19/18 05:11 Lipase 61 U/L (73-393) L 10/17/18 13:00 Home Medications: Fentanyl Hcl Patch 25 mcg TD Q72H 10/18/18 Granisetron HCl [Kytril] 1 mg PO Q12H 10/18/18 Hyoscyamine Sulfate 0.125 mg SL Q6H PRN 10/18/18 Pravastatin Sodium 40 mg PO DAILY 10/18/18 Promethazine HCl 25 mg PO Q6H PRN 10/18/18 Patient Discharge Instructions: Patient will enter inpatient hospice. Continue comfort measures. Diet: Comfort feeding Activity: Fall precautions Time spent managing pt's care (in minutes): 55
[2018-10-19 16:16] VITALS: BP 98/76
[2018-10-19 16:23] VITALS: TEMP 97.8
[2018-10-20] MEDS ORDERED: VANCOMYCIN 1.25 GM in NA CHLORIDE 0.9% 250 ML IVPB SCH (17:00)
== END 2018-10-19 15:40 | disposition hospice, inpatient (51) | DRG 871 ==
LOC: ER 12:38 → ERHOLD 17:04 → 2ND 20:14 → 3RD-ICU 10-18 14:30
PROVIDERS: ADMIT Family Medicine; ATTEND Family Medicine
DX: A41.9 Sepsis, unspecified organism (principal); R65.21 Severe sepsis with septic shock; K72.00 Acute and subacute hepatic failure without coma; J96.00 Acute respiratory failure, unspecified whether with hypoxia or hypercapnia; E43 Unspecified severe protein-calorie malnutrition; N17.9 Acute kidney failure, unspecified; E87.2 Acidosis; D61.818 Other pancytopenia; C78.7 Secondary malignant neoplasm of liver and intrahepatic bile duct; C79.51 Secondary malignant neoplasm of bone; C79.00 Secondary malignant neoplasm of unspecified kidney and renal pelvis; K52.9 Noninfective gastroenteritis and colitis, unspecified; I48.91 Unspecified atrial fibrillation; N40.0 Benign prostatic hyperplasia without lower urinary tract symptoms; C61 Malignant neoplasm of prostate; I95.9 Hypotension, unspecified; Z66 Do not resuscitate; Z51.5 Encounter for palliative care; D70.1 Agranulocytosis secondary to cancer chemotherapy; T45.1X5A Adverse effect of antineoplastic and immunosuppressive drugs, initial encounter; Y92.239 Unspecified place in hospital as the place of occurrence of the external cause; Z68.25 Body mass index [BMI] 25.0-25.9, adult
CPT/HCPCS: 36415; 71045; 74018; 74176; 80053; 82805; 82962; 83605; 83615; 83690; 83735; 84100; 84145; 84484; 85025; 87040; 87493; 87804; 93005; 94660; 94760; 99285; J0610; J0744; J1160; J1170; J1650; J1720; J2270; J2405; J3010; J3370; J3475; J7030; J7060; P9047

== ENCOUNTER 2018-10-19 15:38 | Inpatient (IN) | payer MEDICARE, OTHER ==
--- OUTSIDE RECORDS SUMMARY | 2018-10-19 16:00 | XMS REPORT | Clinical Summary ---
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 06/03/2018 Pre-Admit Testing Pre-Admission [place], Pre-op testing Appointment Testing Alverto Bang MD (Primary Dx) after 10/18/2017 Social History Tobacco Use Types Packs/Day Years [...] Taken Blood Pressure 145/79 09/16/2018 3:47 PM [employer] Pulse 73 09/16/2018 3:47 PM [employer] Temperature 35.4 C (95.8 F) 06/09/2018 11:19 AM CDT Respiratory Rate 24 06/09/2018 11:19 AM CDT Oxygen Saturation 97% 06/09/2018 11:19 AM CDT Inhaled Oxygen Concentration - - Weight 83.9 kg (185 lb) 09/16/2018 3:47 PM [employer] Height 180.3 cm (5' 11") 06/08/2018 11:54 AM CDT Body Mass Index 25.8 09/16/2018 3:47 PM [employer] Plan of Treatment Health Maintenance Due Date Last Done Comments SHINGLES VACCINES (1 of 2) 1987 PNEUMOCOCCAL POLYSACCHARIDE VACCINE AGE 65 AND OVER 2002 PNEUMOCOCCAL-13 2002 INFLUENZA VACCINE 04/15/2018 Procedures Procedure Name Priority Date/Time Associated Comments Diagnosis MRI PROSTATE WWO Routine 09/16/2018 5:36 Malignant neoplasm Results for this CONTRAST PM [employer] of prostate (HCC) procedure are in Anal pain the results section. ESTIMATED GFR Routine 09/16/2018 3:55 Results for this PM [employer] procedure are in the results section. POC CREATININE Routine 09/16/2018 3:55 Results for this PM [employer] procedure are in the results section. NM BONE SCAN WHOLE STAT 06/09/2018 1:47 Results for this BODY PM CDT procedure are in the results section. MO AN ELECTIVE Routine 06/08/2018 2:14 SUPR[address]IC AIRWAY [...] procedure are in the results section. after 10/18/2017 Results MRI Prostate Wwo Contrast (09/16/2018 5:36 PM [employer]) Narrative Performed At EXAMINATION:MRI PROSTATE WWO CONTRAST [...] There is sigmoid diverticulosis without acute diverticulitis. [facility]-[id number] Procedure Note Interface, Radiology Results Incoming - 09/16/2018 6:52 PM [employer] EXAMINATION: MRI PROSTATE WWO CONTRAST CLINICAL HISTORY: [...] There is sigmoid diverticulosis without acute diverticulitis. 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 Estimated GFR 51 (A) mL/min/1.73 m2 [facility] Comment: HOSPITAL CatergoryUnitsInterpretation G1 >=90 Normal or high G2 60-89Mildly decreased N4f29-21Iuxhrd to moderately decreased T6i60-28Zoobmiyqir to severely decreased G4 15-29Severely decreased G5 <15Kidney failure The eGFR was calculated using the Chronic Kidney Disease Epidemiology Collaboration (CKD-EPI) equation. Interpretation is based on recommendations of the National Kidney Foundation-Kidney Disease Outcomes Quality Initiative (NKF-KDOQI) published in 2014. 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) POC creatinine 1.3 (H) 0.7 - 1.2 mg/dl [facility] Comment: Meter ID: [id number] [employer] Manager: Tim Briscoe Specimen Blood Performing Organization Address [facility]/Zipcode Phone Number [facility] DEPARTMENT OF PATHOLOGY AND [address] [place] [phone] [facility] [address] [place] [address] NM Bone Scan Whole Body (06/09/2018 1:47 PM CDT) Narrative Performed At PROCEDURE:NM BONE SCAN WHOLE [facility] CLINICAL HISTORY:prostate cancermets COMPARISON:No prior bone scans or other images available. TECHNIQUE: The patient was injected with 25 millicuries of [id number] intravenously, followed 3 hours later by whole-body [...] IMPRESSION: Numerous sites of osseous metastatic disease. [facility]-[id number] Procedure Note Interface, Radiology Results Incoming - 06/09/2018 1:58 PM CDT PROCEDURE: NM BONE SCAN WHOLE BODY CLINICAL HISTORY: prostate cancer mets COMPARISON: No prior bone scans or other images available. TECHNIQUE: The patient was injected with 25 millicuries of [id number] intravenously, followed 3 hours later by whole-body [...] IMPRESSION: Numerous sites of osseous metastatic disease. [facility]-[id number] Performing Organization Address City/State/Zipcode Phone Number [facility] [address] [place] [phone] Surgical pathology request (06/08/2018 7:51 AM CDT) [facility] DEPARTMENT OF PATHOLOGY AND GENOMIC MEDICINE Surgical pathology report See link below for PDF [facility] DEPARTMENT OF Lab Report PATHOLOGY AND GENOMIC MEDICINE Result status This is Final Report [facility] DEPARTMENT OF for [id number] PATHOLOGY AND GENOMIC MEDICINE Performing Organization Address City/[facility]/Zipcode Phone Number [facility] DEPARTMENT OF PATHOLOGY AND [address] [place] [phone] GENOMIC MEDICINE ECG Pre/Post Op (06/03/2018 3:32 PM CDT) Ventricular rate 67 [facility] MUSE Atrial rate 67 [facility] MUSE MO interval 140 [facility] MUSE QRSD interval 74 [facility] MUSE QT interval 388 [facility] MUSE QTC interval 409 [facility] MUSE P axis 1 12 [facility] MUSE QRS axis 1 0 [facility] MUSE T wave axis 71 [facility] MUSE EKG impression Sinus rhythm with marked sinus arrhythmia [facility] MUSE with occasional premature ventricular complexes-Otherwise normal ECG-No previous ECGs available- Performing Organization Address City/[facility] Centercode Phone Number [facility] MUSE [address] [place] [phone] Urine culture (06/03/2018 3:20 PM CDT) Urine culture SEE COMMENTComment: Bacteriuria [facility] DEPARTMENT OF PATHOLOGY screen negative. AND GENOMIC MEDICINE Performing Organization Address [facility] Centercotx Phone Number [facility] DEPARTMENT OF PATHOLOGY AND [address] [place] [phone] GENOMIC MEDICINE Urinalysis screen and microscopy, with reflex to culture (06/03/2018 3:15 PM CDT) Specimen site Clean catch [facility] DEPARTMENT OF PATHOLOGY AND GENOMIC MEDICINE Color, UA Straw [facility] DEPARTMENT OF PATHOLOGY AND GENOMIC MEDICINE Appearance, UA Clear [facility] DEPARTMENT OF PATHOLOGY AND GENOMIC MEDICINE Specific gravity, UA 1.014 1.001 - 1.035 [facility] DEPARTMENT OF PATHOLOGY AND GENOMIC MEDICINE pH, UA 5.0 5.0 - 8.5 [facility] DEPARTMENT OF PATHOLOGY AND GENOMIC MEDICINE Protein, UA Negative Negative [facility] DEPARTMENT OF PATHOLOGY AND GENOMIC MEDICINE Glucose, UA Negative Negative [facility] DEPARTMENT OF PATHOLOGY AND GENOMIC MEDICINE Ketones, UA Negative Negative [facility] DEPARTMENT OF PATHOLOGY AND GENOMIC MEDICINE Bilirubin, UA Negative Negative [facility] DEPARTMENT OF PATHOLOGY AND GENOMIC MEDICINE Blood, UA Negative Negative [facility] DEPARTMENT OF PATHOLOGY AND GENOMIC MEDICINE Nitrite, UA Negative Negative [facility] DEPARTMENT OF PATHOLOGY AND GENOMIC MEDICINE Urobilinogen, UA <2.0 <2.0 [facility] DEPARTMENT OF PATHOLOGY AND GENOMIC MEDICINE Leukocyte esterase, UA Negative Negative [facility] DEPARTMENT OF PATHOLOGY AND GENOMIC MEDICINE WBC, UA <1 0 - 1 /HPF [facility] DEPARTMENT OF PATHOLOGY AND GENOMIC MEDICINE RBC, UA 2 0 - 5 /HPF [facility] DEPARTMENT OF PATHOLOGY AND GENOMIC MEDICINE Bacteria, UA Few None seen [facility] DEPARTMENT OF PATHOLOGY AND GENOMIC MEDICINE Yeast, UA None seen [facility] DEPARTMENT OF PATHOLOGY AND GENOMIC MEDICINE Yeast with pseudohyphae, UA None seen [facility] DEPARTMENT OF PATHOLOGY AND GENOMIC MEDICINE Specimen Urine Performing Organization Address City/[facility]/Zipcode Phone Number [facility] DEPARTMENT OF PATHOLOGY AND [address] [place], [place] [phone] [facility] CBC hemogram (06/03/2018 3:15 PM CDT) WBC 7.89 4.50 - 11.00 k/uL [facility] DEPARTMENT OF PATHOLOGY AND GENOMIC MEDICINE RBC 4.11 (L) 4.40 - 6.00 m/uL [facility] DEPARTMENT OF PATHOLOGY AND GENOMIC MEDICINE HGB 12.4 (L) 14.0 - 18.0 g/dL [facility] DEPARTMENT OF PATHOLOGY AND GENOMIC MEDICINE HCT 39.1 (L) 41.0 - 51.0 % [facility] DEPARTMENT OF PATHOLOGY AND GENOMIC MEDICINE MCV 95.1 82.0 - 100.0 fL [facility] DEPARTMENT OF PATHOLOGY AND GENOMIC MEDICINE MCH 30.2 27.0 - 34.0 pg [facility] DEPARTMENT OF PATHOLOGY AND GENOMIC MEDICINE MCHC 31.7 31.0 - 37.0 g/dL [facility] DEPARTMENT OF PATHOLOGY AND GENOMIC MEDICINE RDW - SD 44.6 37.0 - 55.0 fL [facility] DEPARTMENT OF PATHOLOGY AND GENOMIC MEDICINE MPV 11.1 8.8 - 13.2 fL [facility] DEPARTMENT OF PATHOLOGY AND GENOMIC MEDICINE Platelet count 232 150 - 400 k/uL [facility] DEPARTMENT OF PATHOLOGY AND GENOMIC MEDICINE Nucleated RBC 0.00 /100 WBC [facility] DEPARTMENT OF PATHOLOGY AND GENOMIC MEDICINE Specimen Blood Performing Organization Address City/[facility] Centercode Phone Number [facility] DEPARTMENT OF PATHOLOGY AND [address] [place] [phone] GENOMIC MEDICINE Type and screen (06/03/2018 3:15 PM CDT) ABO grouping O [facility] DEPARTMENT OF PATHOLOGY AND GENOMIC MEDICINE Rh type POS [facility] DEPARTMENT OF PATHOLOGY AND GENOMIC MEDICINE Antibody screen (gel) NEG [facility] DEPARTMENT OF PATHOLOGY AND GENOMIC MEDICINE Specimen Blood Performing Organization Address City/[facility]/Zipcode Phone Number [facility] DEPARTMENT OF PATHOLOGY AND [address] [place] [phone] GENOMIC MEDICINE Basic metabolic panel (06/03/2018 3:15 PM CDT) Sodium 141 135 - 148 mEq/L [facility] DEPARTMENT OF PATHOLOGY AND GENOMIC MEDICINE Potassium 5.1 (H) 3.5 - 5.0 mEq/L [facility] DEPARTMENT OF PATHOLOGY AND GENOMIC MEDICINE Chloride 101 98 - 112 mEq/L [facility] DEPARTMENT OF PATHOLOGY AND GENOMIC MEDICINE CO2 24 24 - 31 mEq/L [facility] DEPARTMENT OF PATHOLOGY AND GENOMIC MEDICINE Anion gap 16@ANIO (H) 7 - 15 mEq/L [facility] DEPARTMENT OF PATHOLOGY AND GENOMIC MEDICINE BUN 29 (H) 8 - 23 mg/dL [facility] DEPARTMENT OF PATHOLOGY AND GENOMIC MEDICINE Creatinine 1.79 (H) 0.70 - 1.20 mg/dL [facility] DEPARTMENT OF PATHOLOGY AND GENOMIC MEDICINE Glucose 80 65 - 99 mg/dL [facility] DEPARTMENT OF PATHOLOGY AND GENOMIC MEDICINE Calcium 9.8 8.8 - 10.2 mg/dL [facility] DEPARTMENT OF PATHOLOGY AND GENOMIC MEDICINE Specimen Plasma specimen Performing Organization Address City/State/Zipcode Phone Number [facility] DEPARTMENT OF PATHOLOGY AND [address] [place] [address] [employer] [facility] after 10/18/2017 Insurance Payer Benefit Plan / Group Subscriber ID Type Phone Address MEDICARE MEDICARE PART A AND B xxxxxxxxxxx Medicare [place], [place] AARP AARP SUPPLEMENT xxxxxxxxxxx Commercial Advance Directives Patient has advance care planning documents on file. For more information, please contact:Camilo Beltran[address] [place] [address]
[2018-10-19] MEDS ORDERED: MORPHINE 2 MG/ML SYR IV PRN (16:06)
[2018-10-19] MEDS ORDERED: FENTANYL CITR 100 MCG/2 ML IV PRN (16:14)
[2018-10-19] MEDS ORDERED: HYDROMORPHONE HCL 2 MG/ML inj IV PRN (16:15)
[2018-10-19] MEDS ORDERED: NOREPINEPHRINE 4 MG in D5W 250 ML IV PRN (16:20)
[2018-10-19] MEDS ORDERED: LORazepam 2 MG/ML VIAL IV PRN (16:21)
[2018-10-19] MEDS ORDERED: ONDANSETRON 4 MG/2 ML VIAL IV PRN (16:21)
[2018-10-19] MEDS ORDERED: ACETAMINOPHEN 650MG/RECT SUPP PR PRN (16:22)
[2018-10-19] MEDS ORDERED: NOREPINEPHRINE 8 MG in D5W 500 ML IV PRN (16:53)
[2018-10-19] MEDS ORDERED: NOREPINEPHRINE 8 MG in Dextrose 5%-Water 500 ML IV PRN (16:54)
[2018-10-19] MEDS ORDERED: SCOPOLAMINE HYDROBROMIDE PATCH TD SCH (17:00)
[2018-10-19] MEDS ORDERED: FENTANYL 50 MCG/PATCH TD SCH (17:00)
[2018-10-19 18:16] VITALS: BMI 25.9
[2018-10-19] MEDS ORDERED: Meropenem 500 MG in NA CHLORIDE 0.9% 100 ML IV SCH (21:00)
[2018-10-19 21:06] VITALS: O2SAT 91
[2018-10-20 01:40] VITALS: BP 50/38
[2018-10-20] MEDS ORDERED: VANCOMYCIN 1.25 GM in NA CHLORIDE 0.9% 250 ML IVPB SCH (17:00)
[2018-10-21] MEDS ORDERED: FENTANYL 50 MCG/PATCH TD SCH (09:00)
[2018-10-22] MEDS ORDERED: SCOPOLAMINE HYDROBROMIDE PATCH TD SCH (09:00)
== END 2018-10-20 01:20 | disposition expired | DRG 951 ==
LOC: 3RD-ICU 15:38
PROVIDERS: ADMIT Family Medicine; ATTEND Family Medicine
DX: Z51.5 Encounter for palliative care (principal); A41.9 Sepsis, unspecified organism; J96.00 Acute respiratory failure, unspecified whether with hypoxia or hypercapnia; R65.20 Severe sepsis without septic shock; I46.9 Cardiac arrest, cause unspecified
CPT/HCPCS: J1170; J7060